=== PATIENT | female | born 1930 | race Caucasian/White ===

== ENCOUNTER 2017-11-18 11:31 | Inpatient (IN) | payer OTHER, MEDICARE ==
--- NOTE | 2017-11-18 11:38 | PDOC ---
History of Present Illness - General Chief Complaint: Wound Stated Complaint: WOUND Time Seen by Provider: 11/18/17 11:38 History Source: Patient, Family (Daughter) Exam Limitations: No Limitations - History of Present Illness Initial Comments: Pt, with PMH of DM, Afib, open heart bypass (1991), gastrectomy (2012), lung cancer treated with chemotherapy + pneumothorax (08/2017), and multiple falls leading to R hip/femur fracture and subdural hematoma, presents with R foot pain. An angiogram was conducted (09/2017) of the RLE which showed severely decreased arterial circulation in the RLE and multiple stents were placed. 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. The pt was then transferred to a nursing care center for rehabilitation. Over the last few days, her daughter states she noticed the pts R foot became more erythematous and she noticed the 5th digit becoming black. The pt has also been complaining of pain of the RLE from the foot to the knee. She denies any recent fevers/chills, nausea/vomiting, chest pain, SOB, abdominal pain, urinary symptoms, or diarrhea/constipation. 11/18/17 15:50 Past History - Travel Traveled outside of the country in the last 30 days: No Close contact w/someone who was outside of country & ill: No - Past Medical History Allergies/Adverse Reactions: Allergies Allergy/AdvReac Type Severity Reaction Status Date / Time tetracycline Allergy Verified 11/18/17 11:43 Home Medications: Ambulatory Orders Acetaminophen W/ Codeine #3 [Tylenol # 3 -] 1 tablet PO Q4HWA PRN 11/18/17 Ascorbate Calcium [Vitamin C] 500 mg PO DAILY 11/18/17 Calcium Carbonate/Vitamin D3 [Oyster Shell 500-Vit D3 200 Tb] 1 each PO DAILY Cholecalciferol (Vitamin D3) [Vitamin D3] 2,000 unit PO DAILY 11/18/17 Clopidogrel Bisulfate [Plavix] 75 mg PO DAILY 11/18/17 Famotidine [Pepcid] 20 mg PO DAILY 11/18/17 Ferrous Sulfate 325 mg PO DAILY 11/18/17 Gabapentin [Neurontin] 300 mg PO BID 11/18/17 Insulin (Levemir) [Levemir Vial] 3 unit SQ DAILY 11/18/17 Megestrol Acetate Oral Susp [Megace Liquid -] 400 mg PO BID 11/18/17 Metoprolol Succinate 25 mg PO DAILY 11/18/17 Multivitamin [Daily Multiple Vitamin] 1 each PO DAILY 11/18/17 Simvastatin [Zocor -] 20 mg PO HS 11/18/17 Sitagliptin Phosphate [Januvia] 100 mg PO DAILY 11/18/17 Warfarin Sodium [Coumadin] 1 mg PO HS 11/18/17 levETIRAcetam [Keppra -] 500 mg PO BID 11/18/17 Cancer: Yes (lung w/ pneumothorax) Cardiac Disorders: Yes Hx Myocardial Infarction: No CVA: Yes COPD: No CHF: No DVT: No Diabetes: No Dialysis: No HTN: Yes Other medical history: Multiple orthopedic injuries (hip/femur fx), subdural hematoma - Surgical History GI Surgery: Yes (gastrectomy) Review of Systems - Review of Systems Able to Perform ROS?: Yes Is the patient limited Turkmen proficient: No Constitutional: Yes: Unintentional Wgt. Loss (has lost weight in the halfway). No: Chills, Diaphoresis, Fever HEENTM: No: Recent change in vision, Nose Congestion, Throat Pain, Difficulty Swallowing Respiratory: No: Cough, Orthopnea, Shortness of Breath Cardiac (ROS): No: Chest Pain, Edema, Irregular Heart Rate, Lightheadedness, Palpitations, Syncope, Chest Tightness ABD/GI: No: Abdominal Distended, Constipated, Diarrhea, Nausea, Poor Appetite, Poor Fluid Intake, Vomiting : No: Burning, Dysuria, Frequency, Hematuria, Pain, Urgency Musculoskeletal: Yes: Joint Pain (R foot pain). No: Back Pain, Muscle Pain Integumentary: Yes: Change in Color (erythema of R foot and necrosis of 5th digit), Erythema. No: Bruising, Rash, Sweating Neurological: No: Headache, Numbness, Paresthesia, Tremors, Weakness, Ataxia Psychiatric: No: Sleep Pattern Change, Change in Appetite Endocrine: No: Increased Urine, Change in Weight Hematologic/Lymphatic: No: Anemia, Blood Clots, Easy Bleeding (Pt is on coumadin and plavix. Has not noticed increased bleeding) All Other Systems: Reviewed and Negative *Physical Exam - Physical Exam General Appearance: Yes: Appropriately Dressed, Cachetic. No: Apparent Distress (pt can lie comfortably in bed.) HEENT: positive: EOMI, Normal ENT Inspection, Normal Voice, Symmetrical, Pharynx Normal, Hearing Grossly Normal. negative: Scleral Icterus (R), Scleral Icterus (L) Neck: positive: Trachea midline, Normal Thyroid, Supple. negative: Tender, Rigid, Lymphadenopathy (R), Lymphadenopathy (L) Respiratory/Chest: positive: Lungs Clear, Normal Breath Sounds. negative: Chest Tender, Respiratory Distress, Accessory Muscle Use Cardiovascular: positive: Regular Rhythm, Regular Rate, S1, S2. negative: Edema , JVD, Murmur Vascular Pulses: Dorsalis-Pedis (R): 0, Doralis-Pedis (L): 1+ Gastrointestinal/Abdominal: positive: Normal Bowel Sounds, Flat, Soft. negative : Tender, Organomegaly, Pulsatile Mass, Distended, Guarding, Rebound Lymphatic: negative: Adenopathy, Tenderness Musculoskeletal: positive: Normal Inspection. negative: CVA Tenderness, Decreased Range of Motion Extremity: positive: Normal Capillary Refill, Normal Range of Motion, Tender ( Tender over R foot), Pelvis Stable, Coldness (warmth over R forefoot, R 5th toe necrotic and cold. No DP or posterior tibial palpated on R. Minimal drainage from wound. Amputated 3rd and 4th digits, R foot.), Erythema. negative: Normal Inspection, Cyanosis, Pedal Edema Integumentary: positive: Dry, Warm. negative: Normal Color (black necrosis 5th toe of R foot), Rash Neurologic: positive: lead database developer II-XII NML intact, Fully Oriented, Alert, Normal Mood/ Affect, Normal Response, Motor Strength 5/5 Heart Score/ECG Review - History History: Slightly suspicious - Electrocardiogram EKG: Normal - Age Age: >/= 65 - Risk Factors Risk Factors Heart Score: Yes Hx Hypercholesterolemia, Yes Hx Hypertension Based on the list above the patient has:: 1-2 risk factors - Troponin Troponin: </= normal limit - Score Heart Score - Total: 3 - ECG Intrepretation Rhythm: Regular Rhythm - [place]: Left [place] Deviation - P and ID Prominent R with upright T in V1 (true posterior SD): No Delta Wave(s) Present: No WPW: No - QRS Widened: RBBB (incomplete RBBB) - ST and T Early Repolarization: No Non Specific ST-T Wave changes: No Flattened T Waves: No Prolonged Q-T Interval: No - ECG Impressions Normal ECG: No Non-specific ST Elevation: No Ischemic Changes: No Bradycardia: No Torsades christian Pointes: No WPW: No ED Treatment Course - LABORATORY CBC & Chemistry Diagram: 11/18/17 12:35 11/18/17 12:35 - RADIOLOGY Radiology Studies Ordered: x-ray R foot Arterial doppler RLE 11/18/17 14:05 Radiograph Interpretation: EXAM#: TYPE/EXAM: RESULT: [id number] US/DUPLEX ART. LEGS- LIMITED US Recent amputation of right toes. Atrial fibrillation. Rule out emboli. Right lower extremity duplex arterial ultrasound. Examination is limited. No prior is available for comparison. There is normal triphasic waveform in the right common femoral artery. Biphasic waveform in the superficial femoral artery. A stent is present in the popliteal artery which is patent with biphasic waveform. Patent posterior tibial artery with a triphasic waveform There is an occluded graft seen running adjacent and parallel to the superficial femoral artery with its proximal and distal portions/insertion not identified on this exam IMPRESSION: Limited examination, as described above. Occluded graft running adjacent and parallel to the superficial femoral artery. Patent popliteal artery stent. Biphasic waveform in the superficial femoral and popliteal artery. Triphasic waveform in the common femoral and posterior tibial artery were identified. Correlate clinically to determine further evaluation. Case discussed with Dr. Rashad Monterroso, emergency room attending physician. 11/18/17 15:28 Medical Decision Making - Medical Decision Making (entered later) Pt seen at bedside, also seen by Dr. Monterroso. Pt febrile, with necrotic 5th digit of R foot, and erythema (likely cellulitis) around the R midfoot. No pulse was palpated in the R foot DP. Started sepsis work-up, administered 1 g Vanc, 3.375 g Zosyn. Ordered CBC, CMP, lactic and blood/urine cultures, CRP/ESR, troponin, Mg, Phos. Ordered X-ray of R foot and arterial doppler of RLE. Provided 1 g Ofirmev as needed. CBC: H/H: 10.2/31.2, WBC 5.3 Trop .03 Lactic 4[address] Allred's office was called for surgery and consult. He is currently in surgery but will come by later today to see the pt. Spoke with hospitalist who will admit to med/surg. Consult order placed for Dr. Allred. Hospitalist also asked for pt to be seen by vascular surgery to r/o any vascular intervention that needs to be done on emergent basis. Called Dr. Bassam Martinez (vascular) for call-back to discuss case. Awaiting call. 11/18/17 14:00 Pt currently in ultrasound (RLE arterial doppler) 11/18/17 14:24 Dr. Martinez coming to see the pt. 11/18/17 15:28 Dr. Martinez consulted and he has seen the patient. He will order CTA for RLE. 11/18/17 16:05 *DC/Admit/Observation/Transfer Diagnosis at time of Disposition: Amputated toe of right foot, Toe necrosis Cellulitis Qualifiers: Site of cellulitis: extremity Site of cellulitis of extremity: toe Laterality: right Qualified Code(s): L03.031 - Cellulitis of right toe - Discharge Dispostion Condition at time of disposition: Stable Decision to Admit order: Yes - Referrals - Patient Instructions - Post Discharge Activity
--- NOTE | 2017-11-18 11:49 | PDOC ---
Attending Attestation - Resident Resident Name: Sandi Dodd - ED Attending Attestation I have performed the following: I have examined & evaluated the patient, The case was reviewed & discussed with the resident, I agree w/resident's findings & plan, Exceptions are as noted - HPI HPI: 11/18/17 12:24 86 year old female with history of DM, afib, PAD s/p stents, CAD s/p CABG, lung cancer, gastrectomy p/w R foot infection/5th toe necrosis. The patient was recently operated ~3 weeks ago at [facility]. Had 3rd and 4th right toes amputation. Prior to discharge, had some mild "ecchymosis" and necrosis of right 5th toe. Decision was made to observe. States the physicians at [facility] noted that the patient has baseline poor ankle and foot pulses (states typically unable to feel it). Pt was then discharged to SNF. Daughter was visiting today, and noted that the 5th fifth toe was completely necrotic and developed erythema over the dorsum of the right foot. Unclear when the symptoms started. Pt's daughter (Melvina Andrade [phone] HCP) had called a surgeon Dr. Allred who agreed that patient should be sent to the ED. - Physicial Exam PE: 11/18/17 12:57 GENERAL: Awake, alert,, in no acute distress HEAD: No signs of trauma EYES: EOMI, sclera anicteric, conjunctiva clear ENT: Auricles normal inspection, hearing grossly normal, nares patent Moist mucosa NECK: Normal ROM, supple BACK: Stage 2 sacral ulcer. Appears noninfected. EXTREMITIES: Normal range of motion, no edema. No clubbing or cyanosis. No cords, erythema, or tenderness RLE: Difficult to palpate R posterior tibial/DP pulse. Dorsal erythema appreciated. S/p amputation 3rd and 4th toe. 5th toe with complete necrosis. Decreased sensation. NEUROLOGICAL: Cranial nerves II through XII grossly intact. SKIN: Warm, Dry, normal turgor, no rashes or lesions noted. - Medical Decision Making 11/18/17 12:59 Vital Signs Temp Pulse Resp BP Pulse Ox 99.7 F H 91 H 18 109/60 95 11/18/17 11:38 11/18/17 11:38 11/18/17 11:38 11/18/17 11:38 11/18/17 11:38 86 year old F p/w cellulitis and necrosis of the right fifth toe and foot. The wound is likely infected. R/o osteomyelitis. Labs including cultures, lactic acid, ESR, CRP. In addition, pt likely with severe PAD. Differential does include cold foot ( though likely chronic). Difficult to palpate distal pulses. Will need duplex arterial of lower extremities. Consider CTA of lower extremities. Consult Dr. Allred. IV antibiotics (vanc and zosyn) Admit 11/18/17 13:44 CBC, BMP 11/18/17 12:35 11/18/17 12:35 CMP Sodium 141 mmol/L (136-145) 11/18/17 12:35 Potassium 4.5 mmol/L (3.5-5.1) 11/18/17 12:35 Chloride 106 mmol/L (98-107) 11/18/17 12:35 Carbon Dioxide 28 mmol/L (21-32) 11/18/17 12:35 Anion Gap 7 (8-16) L 11/18/17 12:35 BUN 15 mg/dL (7-18) 11/18/17 12:35 Creatinine 0.5 mg/dL (0.55-1.02) L 11/18/17 12:35 Creat Clearance w eGFR > 60 (>60) 11/18/17 12:35 Random Glucose 143 mg/dL (74-106) H 11/18/17 12:35 Lactic Acid 4.1 mmol/L (0.0-2.0) H* 11/18/17 12:11 Calcium 8.3 mg/dL (8.5-10.1) L 11/18/17 12:35 Phosphorus 2.7 mg/dL (2.5-4.9) 11/18/17 12:35 Magnesium 2.0 mg/dL (1.8-2.4) 11/18/17 12:35 Total Bilirubin 0.3 mg/dL (0.2-1.0) 11/18/17 12:35 AST 49 U/L (15-37) H 11/18/17 12:35 ALT 44 U/L (12-78) 11/18/17 12:35 Alkaline Phosphatase 154 U/L (45-117) H 11/18/17 12:35 Troponin I 0.03 ng/ml (0.00-0.05) 11/18/17 12:35 C-Reactive Protein 8.2 MG/DL (0.00-0.3) H 11/18/17 12:35 Total Protein 6.1 g/dl (6.4-8.2) L 11/18/17 12:35 Albumin 2.3 g/dl (3.4-5.0) L 11/18/17 12:35 Elevated lactic acid. Case discussed with Dr. Allred. He will be the telecommunications consultant on the case. Admit. <Rashad Monterroso - Last Filed: 11/18/17 13:44> - Medical Decision Making 11/18/17 13:[address] Allred. 11/18/17 16:05 Dr. Martinez (Vascular) consulted here in the ED. Dr Martinez states he will order CTA. <Sekou Her - Last Filed: 11/18/17 16:07> Heart Score/ECG Review #1 ECG reviewed & interpreted by me at: 11:45 11/18/17 11:49 NSR 88, left axis deviation, incomplete RBBB, no std/[place], QTC 454 msec <Rashad Monterroso - Last Filed: 11/18/17 13:44> Attestations - Attestations 11/18/17 13:55 Documentation prepared by Sekou Her, acting as medical office specialist for Rashad Monterroso MD. <Sekou Her - Last Filed: 11/18/17 16:07>
[2017-11-18] MEDS ORDERED: HEMOQUE TEST 1 EACH EACH ONE (11:54)
[2017-11-18] MEDS ORDERED: SODIUM CHLORIDE 1,000 ML IV STA (12:11)
[2017-11-18] MEDS ORDERED: VANCOMYCIN 1,000 MG in DEXTROSE 5%-WATER - 250 ML IVPB ONE (12:17)
[2017-11-18] MEDS ORDERED: PIPERACILLIN/TAZOB 3.375 GM 3.375 GM in DEXTROSE 5%-WATER - 50 ML IVPB ONE (12:18)
[2017-11-18] MEDS ORDERED: PIPERACILLIN/TAZOB 3.375 GM 3.375 GM/50 ML BAG IVPB ONE (12:35)
[2017-11-18] MEDS ORDERED: VANCOMYCIN 1 GRAM (PRE-DOCKED) 1,000 MG/250 ML BAG IVPB ONE (12:35)
[2017-11-18 12:47] LABS: BASO % 0.8 % (0-2.0); EOS % 0.4 % (0-4.5); HEMATOCRIT 31.2 % (32.4-45.2); HEMOGLOBIN 10.2 GM/dL (10.7-15.3); LYMPH % 3.3 % (8-40); MCHC 32.7 g/dl (32.0-36.0); MEAN CELL VOLUME 91.6 fl (80-96); MEAN PLT VOLUME 8.2 fl (7.5-11.1); MONO % 5.6 % (3.8-10.2); NEUT % 89.9 % (42.8-82.8); PLATELET COUNT 673 K/MM3 (134-434); RBC 3.41 M/mm3 (3.60-5.2); RDW 16.7 % (11.6-15.6); WHITE BLOOD COUNT 5.3 K/mm3 (4.0-10.0)
[2017-11-18 12:53] LABS: VENOUS PC02 48.4 mmHg (38-52); VENOUS PH 7.39 (7.32-7.42); VENOUS PO2 18.5 mmHg (28-48)
[2017-11-18] MEDS ORDERED: ACETAMINOPHEN 1000 MG/100 ML VIAL (NON FORMULARY) IVPB ONE (13:05)
[2017-11-18 13:11] LABS: INR 3.15 (0.83-1.09); PROTHROMBIN TIME (PATIENT) 35.6 SEC (9.7-13.0)
[2017-11-18 13:14] LABS: URINE APPEARANCE CLEAR; URINE BILIRUBIN NEGATIVE (<2.0 mg/dL); URINE COLOR YELLOW; URINE GLUCOSE (UA) 2+ (NEGATIVE); URINE KETONE NEGATIVE (NEGATIVE); URINE LEUK ESTERASE NEGATIVE (NEGATIVE); URINE NITRITE NEGATIVE (NEGATIVE); URINE PROTEIN NEGATIVE (NEGATIVE); URINE UROBILINOGEN NEGATIVE mg/dL (0.2-1.0)
[2017-11-18 13:14] LABS: ACTIVATED PTT 39.5 SECONDS (25.2-36.5)
[2017-11-18] MEDS ORDERED: ACETAMINOPHEN INJECTION 100 ML IVPB ONE (13:17)
[2017-11-18 13:25] LABS: ALBUMIN 2.3 g/dl (3.4-5.0); ALK PHOS 154 U/L (45-117); ANION GAP 7 (8-16); BILIRUBIN,TOTAL 0.3 mg/dL (0.2-1.0); BLOOD UREA NITROGEN 15 mg/dL (7-18); CALCIUM 8.3 mg/dL (8.5-10.1); CHLORIDE 106 mmol/L (98-107); CO2 28 mmol/L (21-32); CREATININE 0.5 mg/dL (0.55-1.02); GLUCOSE,RANDOM 143 mg/dL (74-106); POTASSIUM 4.5 mmol/L (3.5-5.1); SGOT/AST 49 U/L (15-37); SGPT/ALT 44 U/L (12-78); SODIUM 141 mmol/L (136-145); TOT PROT 6.1 g/dl (6.4-8.2)
--- NOTE | 2017-11-18 16:50 | EKG ---
Test Reason : Blood Pressure : / mmHG Vent. Rate : 088 BPM Atrial Rate : 088 BPM P-R Int : 168 ms QRS Dur : 094 ms QT Int : 376 ms P-R-T Axes : 093 -57 084 degrees QTc Int : 454 ms NORMAL SINUS RHYTHM LEFT AXIS DEVIATION INCOMPLETE RIGHT BUNDLE BRANCH BLOCK ABNORMAL ECG NO PREVIOUS ECGS AVAILABLE Confirmed by MD BAILEY, SHAMAR ([id number]) on 11/18/2017 4:50:01 PM Referred By: Confirmed By:SHAMAR AVALOS MD
--- NOTE | 2017-11-18 17:04 | HP ---
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 Pt was at [facility] 3 weeks ago for right foot gangrene, was discharged to SNF for rehab. Since dc pt had been receiving rehab at the facility. for past two days daughter noted dark discoloration in the right toes which was not present at the time of dc from [facility]. daughter visits her mother daily, but previously the foot had always been wrapped until yesterday when the daughter saw the foot unwrapped for the first time. daughter had pictures in her phone of the foot prior to [facility] admission and at time of discharge, the initial lesion started as a dark lesion between 3rd and 4th digit that extended to tips of her toes, at time of discharge the 1st, 2nd and 5th toes were pink, insicion line was clean, intact with no erythema as seen in the picture taken of the plantar surface of the right foot. as per daughter pt had nonpalpable dp pulses when pt was dc'd from [facility] during pt's stay at [facility] she developed a sacral decub. As per daughter, pt had not complained about fevers, chest pain, sob, abdominal pain, dysuria, cough, diarrhea, constipation. ER course was notable for: (1) foot xray (2) lower extremity duplex (3) vascular surgery consult, podiatry consult Recent Travel: none PAST MEDICAL HISTORY: extensive, additional hx derived from chart review Diabetes, HTN, afib, HLD, dementia, hx of ME in 1991, chronic anemia hx of lung cancer dx'd June 2017, treated with radiationx4 at [facility] 3 weeks ago hx of gastric cancer, s/p gastrectomy 2012, s/p chemo and radiation hx of seizures hx of lung collapse 08/2017 hx of femur fracture s/p fall and hx of ICH s/p fall in 2015 PAD/PVD s/p recent R SFA/popliteal/AT/peroneal angioplasty (09/2017) PAST SURGICAL HISTORY: double bypass and 2 stents in right leg - 09/2017 aortic mechanical valve 1991 gastrectomy 2012 Social History: was living at home with Melvina(daughter), able to ambulate independently prior to [facility] admission Smoking: never Alcohol: never Drugs: never Family History: [place] Allergies tetracycline Allergy (Verified 11/18/17 11:43) iodinated contrast oral and IV HOME MEDICATIONS: Home Medications Medication Instructions Recorded Acetaminophen W/ Codeine #3 1 tablet PO Q4HWA PRN 11/18/17 [Tylenol # 3 -] Ascorbate Calcium [Vitamin C] 500 mg PO DAILY 11/18/17 Calcium Carbonate/Vitamin D3 1 each PO DAILY 11/18/17 [Oyster Shell 500-Vit D3 200 Tb] Cholecalciferol (Vitamin D3) 2,000 unit PO DAILY 11/18/17 [Vitamin D3] Clopidogrel Bisulfate [Plavix] 75 mg PO DAILY 11/18/17 Famotidine [Pepcid] 20 mg PO DAILY 11/18/17 Ferrous Sulfate 325 mg PO DAILY 11/18/17 Gabapentin [Neurontin] 300 mg PO BID 11/18/17 Insulin (Levemir) [Levemir Vial] 3 unit SQ DAILY 11/18/17 Megestrol Acetate Oral Susp 400 mg PO BID 11/18/17 [Megace Liquid -] Metoprolol Succinate 25 mg PO DAILY 11/18/17 Multivitamin [Daily Multiple 1 each PO DAILY 11/18/17 Vitamin] Simvastatin [Zocor -] 20 mg PO HS 11/18/17 Sitagliptin Phosphate [Januvia] 100 mg PO DAILY 11/18/17 Warfarin Sodium [Coumadin] 1 mg PO HS 11/18/17 levETIRAcetam [Keppra -] 500 mg PO BID 11/18/17 REVIEW OF SYSTEMS - obtained with help of daughter CONSTITUTIONAL: Present: weight change - unintentional weight loss Absent: fever, chills, diaphoresis, generalized weakness, malaise, loss of appetite, HEENT: Absent: difficulty swallowing, mouth swelling CARDIOVASCULAR: Present: Afib Absent: chest pain, peripheral edema RESPIRATORY: Absent: cough, GASTROINTESTINAL: Absent: abdominal pain, abdominal distension, vomiting, diarrhea, constipation GENITOURINARY: Absent: dysuria, MUSCULOSKELETAL: Present: foot pain SKIN: Absent: rash, itching, pallor PHYSICAL EXAMINATION Vital Signs - 24 hr 11/18/17 11:38 Temperature 99.7 F H Pulse Rate 91 H Respiratory 18 Rate Blood Pressure 109/60 O2 Sat by Pulse 95 Oximetry (%) GENERAL: Awake, alert, and oriented to person, age and birthday. did not want to answer remaining orientation questions, in no acute distress. HEAD: Normal with no signs of trauma. b/l temporal wasting. EYES: Pupils equal, round and reactive to light, extraocular movements intact, sclera anicteric, conjunctiva clear. No lid lag. EARS, NOSE, THROAT: Ears normal, nares patent, oropharynx clear without exudates. Moist mucous membranes. no thrush, no eduntulism, no oral lesions. NECK: Normal range of motion, supple without lymphadenopathy, JVD, or masses. LUNGS: Breath sounds equal, clear to auscultation bilaterally. No accessory muscle use. HEART: Regular rate and rhythm, normal S1 and S2 without murmur, audible click from valve. well healed sternal scar ABDOMEN: well-healed abdominal scar. Soft, nontender, not distended, normoactive bowel sounds, no guarding, no rebound, no masses. No hepatomegaly or splenomegaly. MUSCULOSKELETAL: wnl rom at shoulders, elbows, wrists. decr in b/l hips, knees and ankles. UPPER EXTREMITIES: 2+ radial pulses, warm, well-perfused. No cyanosis. No clubbing. No peripheral edema. LOWER EXTREMITIES: nonpalpable right DP/TP pulse, faint left dp pulse, nonpalable TP pulse in left. warm. right 1st, 2nd and fifth toes with ischemia, incision line closed, no crepitus, no discharge. erythema extending from toes to dorsum upto to ankle and mid planter surface. lateral metatarsal joint with circular area of ischemia 0.5cmx0.5cm. ttp at toes and at foot. b/l No calf tenderness. No peripheral edema. NEUROLOGICAL: Cranial nerves II-XII intact. Normal speech. facial symmetry. b/ l 3/5 hangrip, 4/5 triceps/biceps and shoulder flexion and extension. 1/5 hip extension b/l, 4/5 hip flexion b/l. 2/5 knee extension b/l, 4/5 knee flexion. SKIN: Warm, dry, normal turgor Laboratory Results - last 24 hr 11/18/17 11/18/17 11/18/17 12:11 12:27 12:35 WBC 5.3 RBC 3.41 L Hgb 10.2 L Hct 31.2 L MCV 91.6 MCH 30.0 MCHC 32.7 RDW 16.7 H Plt Count 673 H MPV 8.2 Absolute Neuts (auto) 4.8 Neutrophils % 89.9 H Lymphocytes % 3.3 L Monocytes % 5.6 Eosinophils % 0.4 Basophils % 0.8 Nucleated RBC % 0 ESR PT with INR INR PTT (Actin FS) VBG pH POC VBG pCO2 POC VBG pO2 Mixed VBG HCO3 Sodium Potassium Chloride Carbon Dioxide Anion Gap BUN Creatinine Creat Clearance w eGFR Random Glucose Lactic Acid 4.1 H* Calcium Phosphorus Magnesium Total Bilirubin AST ALT Alkaline Phosphatase Troponin I C-Reactive Protein Total Protein Albumin Urine Color Yellow Urine Appearance Clear Urine pH 5.0 Ur Specific [place] 1.019 Urine Protein Negative Urine Glucose (UA) 2+ H Urine Ketones Negative Urine Blood Negative Urine Nitrite Negative Urine Bilirubin Negative Urine Urobilinogen Negative Ur Leukocyte Esterase Negative Blood Type Antibody Screen 11/18/17 11/18/17 11/18/17 12:35 12:35 12:35 WBC RBC Hgb Hct MCV MCH MCHC RDW Plt Count MPV Absolute Neuts (auto) Neutrophils % Lymphocytes % Monocytes % Eosinophils % Basophils % Nucleated RBC % ESR PT with INR 35.60 H* INR 3.15 H* PTT (Actin FS) 39.5 VBG pH 7.39 POC VBG pCO2 48.4 POC VBG pO2 18.5 L* Mixed VBG HCO3 28.3 H Sodium 141 Potassium 4.5 Chloride 106 Carbon Dioxide 28 Anion Gap 7 L BUN 15 Creatinine 0.5 L Creat Clearance w eGFR > 60 Random Glucose 143 H Lactic Acid Calcium 8.3 L Phosphorus Magnesium Total Bilirubin 0.3 AST 49 H ALT 44 Alkaline Phosphatase 154 H Troponin I C-Reactive Protein Total Protein 6.1 L Albumin 2.3 L Urine Color Urine Appearance Urine pH Ur Specific [place] Urine Protein Urine Glucose (UA) Urine Ketones Urine Blood Urine Nitrite Urine Bilirubin Urine Urobilinogen Ur Leukocyte Esterase Blood Type Antibody Screen 11/18/17 11/18/17 11/18/17 12:35 12:35 12:35 WBC RBC Hgb Hct MCV MCH MCHC RDW Plt Count MPV Absolute Neuts (auto) Neutrophils % Lymphocytes % Monocytes % Eosinophils % Basophils % Nucleated RBC % ESR PT with INR INR PTT (Actin FS) VBG pH POC VBG pCO2 POC VBG pO2 Mixed VBG HCO3 Sodium Potassium Chloride Carbon Dioxide Anion Gap BUN Creatinine Creat Clearance w eGFR Random Glucose Lactic Acid Calcium Phosphorus Magnesium 2.0 Total Bilirubin AST ALT Alkaline Phosphatase Troponin I Cancelled 0.03 C-Reactive Protein Total Protein Albumin Urine Color Urine Appearance Urine pH Ur Specific [place] Urine Protein Urine Glucose (UA) Urine Ketones Urine Blood Urine Nitrite Urine Bilirubin Urine Urobilinogen Ur Leukocyte Esterase Blood Type B POSITIVE Antibody Screen Negative 11/18/17 11/18/17 11/18/17 12:35 12:35 12:35 WBC RBC Hgb Hct MCV MCH MCHC RDW Plt Count MPV Absolute Neuts (auto) Neutrophils % Lymphocytes % Monocytes % Eosinophils % Basophils % Nucleated RBC % ESR 104 H PT with INR INR PTT (Actin FS) VBG pH POC VBG pCO2 POC VBG pO2 Mixed VBG HCO3 Sodium Potassium Chloride Carbon Dioxide Anion Gap BUN Creatinine Creat Clearance w eGFR Random Glucose Lactic Acid Calcium Phosphorus 2.7 Magnesium Total Bilirubin AST ALT Alkaline Phosphatase Troponin I C-Reactive Protein 8.2 H Total Protein Albumin Urine Color Urine Appearance Urine pH Ur Specific [place] Urine Protein Urine Glucose (UA) Urine Ketones Urine Blood Urine Nitrite Urine Bilirubin Urine Urobilinogen Ur Leukocyte Esterase Blood Type Antibody Screen 11/18/17 12:40 WBC RBC Hgb Hct MCV MCH MCHC RDW Plt Count MPV Absolute Neuts (auto) Neutrophils % Lymphocytes % Monocytes % Eosinophils % Basophils % Nucleated RBC % ESR PT with INR INR PTT (Actin FS) VBG pH POC VBG pCO2 POC VBG pO2 Mixed VBG HCO3 Sodium Potassium Chloride Carbon Dioxide Anion Gap BUN Creatinine Creat Clearance w eGFR Random Glucose Lactic Acid Calcium Phosphorus Magnesium Total Bilirubin AST ALT Alkaline Phosphatase Troponin I C-Reactive Protein Total Protein Albumin Urine Color Urine Appearance Urine pH Ur Specific [place] Urine Protein Urine Glucose (UA) Urine Ketones Urine Blood Urine Nitrite Urine Bilirubin Urine Urobilinogen Ur Leukocyte Esterase Blood Type B POSITIVE Antibody Screen ASSESSMENT/PLAN: 86 yr old woman with extensive medical hx with multiple co-morbidities brought in from SNF for right toe gangrene admitted for further evaluation and management. - lactic acidosis resolved #right toe gangrene with cellulitis - podiatry(dr. castillo) and vasc(dr. call) for surgical intervention on 11/20 - further imaging with CT angio and MRI - wound care with santyl + dressing - IV zosyn 3.375 q8hr - started 11/18 - IV vanc 1gm given in the ED, likely continue the morning - ID consult - Dr. Pitt - if possible obtain culture report from previous amputation at [facility] - continuous bedrest rest, fall risk precautions, will initiate PT post- surgical pending surgical recommendations - tylenol for pain control, uptitrate if further pain control needed #DM - hold home januvia and levemir - NISS/BGM ACHS - NPO 11/20 00:00 prior to surgery - continue gabapentin 300mg po BID - A1c ordered #Afib/mechanical aortic valve - INR goal 2.5-3.5, currently therapeutic, hold coumadin(1 mg daily) for surgery - when INR <2.5, initiate heparin drip - repeat labs coags in the AM #PAD/PVD - plavix 75mg po daily, continue daily - pt had recent stents #HTN - metoprolol succ 25mg po daily #Seizures - keppra 500mg po bid daily #HLD - zocor 20mg po HS #s/p gastrectomy - pepcid 20mg po daily #Underweight, BMI 14 - megace 400mg po bid - continue supplements; ca, MVI, vitamins #chronic anemia - ferrous sulfate 325mg po daily DVT - on warfarin Diet - dysphagia ordered as per [facility] records that's what the pt was eating Code status - adult without capacity with surrogate(daughter Melvina) - confirmed DNR/DNI, paperwork placed in chart. palliative consulted given pt's extensive co-morbidities. Visit type - Emergency Visit Emergency Visit: Yes ED Registration Date: 11/18/17 Care time: The patient presented to the Emergency Department on the above date and was hospitalized for further evaluation of their emergent condition. - New Patient This patient is new to me today: Yes Date on this admission: 11/18/17 - Critical Care Critical Care patient: No Hospitalist Screening - Colonoscopy Questionnaire Colonoscopy Questionnaire: Colonoscopy Questionnaire - Patient: 50 - 75 years old and never had a screening colonoscopy: No History of colon or rectal polyps, or CA: No History of IBD, Crohn's disease or UC: No History of abdominal radiation therapy as a child: No - Relative: 1 with colon or rectal CA, or polyps at age 60 or younger: No Colon or rectal CA diagnosed at age 45 or younger: No Multiple relatives with colon or rectal CA: No - Outcome: Screening Result: Negative Screen
--- NOTE | 2017-11-18 17:31 | PN ---
Progress Note (short form) - Note Progress Note: Vascular Surgery Pt seen and examined. right foot gangrene. Recent angiogram, stent placement in right leg at [facility]. Amputatio of toes performed as well. Went to rehab and foot became more discolored. There is gangrene of the area the toes were amputated. Also there is are skin changes to the fifth toe and second toe. Will order CTA to look at runoff for intervention. Hold coumadin. IV heparin when INR below 2.5. Bassam Martinez DO
--- NOTE | 2017-11-18 17:51 | CONSULT ---
Consult - text type - Consultation Consultation Note: Patiet seen in bed with family present. Recently vascular intervention and amputation toes 3&4 right. Patient is alert but not well oriented. vss, tmax 98.4 +dry gangarene right forefoot toes 5&2 and mpj toes 3&4 are gangrenous, - drainage, -mal odor, +tender, +celultis to ankle, weak pulses b/l, wbc=5.3 Gangarene, Cellulitis PVD Read and appreciated vascular note. Anticipate intervention after vascular evaluation of current circulatory status. IVABX as per ID. MRI ordered. Xray reviewed. Santyl dressing change to right foot. will follow. Discussed with daughter and grandaughter.
[2017-11-18] MEDS ORDERED: WARFARIN NA 1 MG TABLET (FP) PO SCH (18:00)
[2017-11-18] MEDS ORDERED: PIPERACILLIN/TAZOBACTAM 3.375 GM VIAL IVPB ONE (18:40)
[2017-11-18] MEDS ORDERED: DEXTROSE 5%-WATER - 50 ML IVPB ONE (18:41)
[2017-11-18] MEDS: ACETAMINOPHEN 325 MG TABLET (FP) PO PRN (18:46)
[2017-11-18] MEDS: PIPERACILLIN/TAZOB 3.375 GM 3.375 GM in DEXTROSE 5%-WATER - 50 ML IVPB SCH (18:49)
[2017-11-18 19:17] VITALS: BMI 14.8
--- NOTE | 2017-11-18 19:19 | PN ---
Teaching Attending Note Name of Resident: Carolyn Pearson ATTENDING PHYSICIAN STATEMENT I saw and evaluated the patient. I reviewed the resident's note and discussed the case with the resident. I agree with the resident's findings and plan as documented with exceptions below. SUBJECTIVE: 86 yof with extensive PMHx, Mechanical AVR, IDDM, HTN, recent admission to [facility] s/p angiogram/stent placement, right 3rd/4th toe amputation, d/brisa to [place] 2 weeks ago, was brought in today with worsening foot discloration and gangrenous right 5th toe by daughter. Patient with limited ROS, given her dementia. C/o pain right foot. No fevers/chills, or other concerns as discussed with daughter. Has had poor oral intake since recent hospital course. OBJECTIVE: Vital Signs Period Temp Pulse Resp BP Sys/Yates Pulse Ox Last 24 Hr 98.1 F-99.7 F 84-91 18-100 101-125/54-69 95-100 Intake & Output 11/15/17 11/16/17 11/17/17 11/18/17 23:59 23:59 23:59 23:59 Intake Total 50 Balance 50 Weight 76 lb 3 oz GENERAL: Awake, alert, oriented to self, cachectic female, in no acute distress. HEAD: Normal with no signs of trauma. EYES: Pupils equal, round and reactive to light, extraocular movements intact, sclera anicteric, conjunctiva clear. No lid lag. EARS, NOSE, THROAT: Ears normal, nares patent, oropharynx clear without exudates. Moist mucous membranes. NECK: Soft, supple, no JVD LUNGS: decreased effort, no rales or wheezing, limited exam HEART: S1S2 regular, mechanical click over precordium ABDOMEN: Soft, nontender, not distended, normoactive bowel sounds, no guarding, no rebound, no masses. Extremities: RLE in dressing, right gangrenous 5th toe, ovelying erythema on the dorsum of the right foot, unable to palpate DP or PT pulses NEUROLOGICAL: facial symmetry, tongue midline, power generalized weakness 4/5, further exam limited due to lack of co-operation PSYCHIATRIC: Cooperative on persuasion SKIN: Warm, dry, normal turgor, Home Medications Medication Instructions Recorded Acetaminophen W/ Codeine #3 1 tablet PO Q4HWA PRN 11/18/17 [Tylenol # 3 -] Ascorbate Calcium [Vitamin C] 500 mg PO DAILY 11/18/17 Calcium Carbonate/Vitamin D3 1 each PO DAILY 11/18/17 [Oyster Shell 500-Vit D3 200 Tb] Cholecalciferol (Vitamin D3) 2,000 unit PO DAILY 11/18/17 [Vitamin D3] Clopidogrel Bisulfate [Plavix] 75 mg PO DAILY 11/18/17 Famotidine [Pepcid] 20 mg PO DAILY 11/18/17 Ferrous Sulfate 325 mg PO DAILY 11/18/17 Gabapentin [Neurontin] 300 mg PO BID 11/18/17 Insulin (Levemir) [Levemir Vial] 3 unit SQ DAILY 11/18/17 Megestrol Acetate Oral Susp 400 mg PO BID 11/18/17 [Megace Liquid -] Metoprolol Succinate 25 mg PO DAILY 11/18/17 Multivitamin [Daily Multiple 1 each PO DAILY 11/18/17 Vitamin] Simvastatin [Zocor -] 20 mg PO HS 11/18/17 Sitagliptin Phosphate [Januvia] 100 mg PO DAILY 11/18/17 Warfarin Sodium [Coumadin] 1 mg PO HS 11/18/17 levETIRAcetam [Keppra -] 500 mg PO BID 11/18/17 Active Medications Acetaminophen (Tylenol -) 650 mg PO Q4H PRN PRN Reason: PAIN LEVEL 6-10 Last Admin: 11/18/17 18:46 Dose: 650 mg Ascorbic Acid (Vitamin C -) 500 mg PO DAILY [facility] Atorvastatin Calcium (Lipitor -) 10 mg PO HS [facility] Calcium Carbonate/Cholecalciferol (Os-Matt 500+D -) 1 tab PO DAILY [facility] Cholecalciferol (Vitamin D3 -) 2,000 unit PO DAILY [facility] Clopidogrel Bisulfate (Plavix -) 75 mg PO DAILY [facility] Collagenase (Santyl -) 1 applic TP DAILY [facility]; Protocol Ferrous Sulfate (Feosol -) 325 mg PO DAILY [facility] Gabapentin (Neurontin -) 300 mg PO BID [facility] Piperacillin Sod/Tazobactam (Sod 3.375 gm/ Dextrose) 50 mls @ 100 mls/hr IVPB Q8H-IV GUA[place] Last Admin: 11/18/17 18:49 Dose: 100 mls/hr Insulin Aspart (Novolog Vial Sliding Scale -) 1 vial SQ ACHS [facility]; Protocol Levetiracetam (Keppra -) 500 mg PO BID [facility] Megestrol Acetate (Megace Oral Suspension -) 400 mg PO BID [facility] Metoprolol Succinate (Toprol Xl -) 25 mg PO DAILY [facility] Multivitamins/Minerals/Vitamin C (Tab-A-Vit -) 1 tab PO DAILY [facility] Ranitidine HCl (Zantac -) 150 mg PO DAILY [facility] Laboratory Results - last 24 hr 11/18/17 11/18/17 11/18/17 12:11 12:27 12:35 WBC 5.3 RBC 3.41 L Hgb 10.2 L Hct 31.2 L MCV 91.6 MCH 30.0 MCHC 32.7 RDW 16.7 H Plt Count 673 H MPV 8.2 Absolute Neuts (auto) 4.8 Neutrophils % 89.9 H Lymphocytes % 3.3 L Monocytes % 5.6 Eosinophils % 0.4 Basophils % 0.8 Nucleated RBC % 0 ESR PT with INR INR PTT (Actin FS) VBG pH POC VBG pCO2 POC VBG pO2 Mixed VBG HCO3 Sodium Potassium Chloride Carbon Dioxide Anion Gap BUN Creatinine Creat Clearance w eGFR Random Glucose Lactic Acid 4.1 H* Calcium Phosphorus Magnesium Total Bilirubin AST ALT Alkaline Phosphatase Troponin I C-Reactive Protein Total Protein Albumin Urine Color Yellow Urine Appearance Clear Urine pH 5.0 Ur Specific [place] 1.019 Urine Protein Negative Urine Glucose (UA) 2+ H Urine Ketones Negative Urine Blood Negative Urine Nitrite Negative Urine Bilirubin Negative Urine Urobilinogen Negative Ur Leukocyte Esterase Negative Blood Type Antibody Screen 11/18/17 11/18/17 11/18/17 12:35 12:35 12:35 WBC RBC Hgb Hct MCV MCH MCHC RDW Plt Count MPV Absolute Neuts (auto) Neutrophils % Lymphocytes % Monocytes % Eosinophils % Basophils % Nucleated RBC % ESR PT with INR 35.60 H* INR 3.15 H* PTT (Actin FS) 39.5 VBG pH 7.39 POC VBG pCO2 48.4 POC VBG pO2 18.5 L* Mixed VBG HCO3 28.3 H Sodium 141 Potassium 4.5 Chloride 106 Carbon Dioxide 28 Anion Gap 7 L BUN 15 Creatinine 0.5 L Creat Clearance w eGFR > 60 Random Glucose 143 H Lactic Acid Calcium 8.3 L Phosphorus Magnesium Total Bilirubin 0.3 AST 49 H ALT 44 Alkaline Phosphatase 154 H Troponin I C-Reactive Protein Total Protein 6.1 L Albumin 2.3 L Urine Color Urine Appearance Urine pH Ur Specific [place] Urine Protein Urine Glucose (UA) Urine Ketones Urine Blood Urine Nitrite Urine Bilirubin Urine Urobilinogen Ur Leukocyte Esterase Blood Type Antibody Screen 11/18/17 11/18/17 11/18/17 12:35 12:35 12:35 WBC RBC Hgb Hct MCV MCH MCHC RDW Plt Count MPV Absolute Neuts (auto) Neutrophils % Lymphocytes % Monocytes % Eosinophils % Basophils % Nucleated RBC % ESR PT with INR INR PTT (Actin FS) VBG pH POC VBG pCO2 POC VBG pO2 Mixed VBG HCO3 Sodium Potassium Chloride Carbon Dioxide Anion Gap BUN Creatinine Creat Clearance w eGFR Random Glucose Lactic Acid Calcium Phosphorus Magnesium 2.0 Total Bilirubin AST ALT Alkaline Phosphatase Troponin I Cancelled 0.03 C-Reactive Protein Total Protein Albumin Urine Color Urine Appearance Urine pH Ur Specific [place] Urine Protein Urine Glucose (UA) Urine Ketones Urine Blood Urine Nitrite Urine Bilirubin Urine Urobilinogen Ur Leukocyte Esterase Blood Type B POSITIVE Antibody Screen Negative 11/18/17 11/18/17 11/18/17 12:35 12:35 12:35 WBC RBC Hgb Hct MCV MCH MCHC RDW Plt Count MPV Absolute Neuts (auto) Neutrophils % Lymphocytes % Monocytes % Eosinophils % Basophils % Nucleated RBC % ESR 104 H PT with INR INR PTT (Actin FS) VBG pH POC VBG pCO2 POC VBG pO2 Mixed VBG HCO3 Sodium Potassium Chloride Carbon Dioxide Anion Gap BUN Creatinine Creat Clearance w eGFR Random Glucose Lactic Acid Calcium Phosphorus 2.7 Magnesium Total Bilirubin AST ALT Alkaline Phosphatase Troponin I C-Reactive Protein 8.2 H Total Protein Albumin Urine Color Urine Appearance Urine pH Ur Specific [place] Urine Protein Urine Glucose (UA) Urine Ketones Urine Blood Urine Nitrite Urine Bilirubin Urine Urobilinogen Ur Leukocyte Esterase Blood Type Antibody Screen 11/18/17 11/18/17 12:40 17:00 WBC RBC Hgb Hct MCV MCH MCHC RDW Plt Count MPV Absolute Neuts (auto) Neutrophils % Lymphocytes % Monocytes % Eosinophils % Basophils % Nucleated RBC % ESR PT with INR INR PTT (Actin FS) VBG pH POC VBG pCO2 POC VBG pO2 Mixed VBG HCO3 Sodium Potassium Chloride Carbon Dioxide Anion Gap BUN Creatinine Creat Clearance w eGFR Random Glucose Lactic Acid 1.2 Calcium Phosphorus Magnesium Total Bilirubin AST ALT Alkaline Phosphatase Troponin I C-Reactive Protein Total Protein Albumin Urine Color Urine Appearance Urine pH Ur Specific [place] Urine Protein Urine Glucose (UA) Urine Ketones Urine Blood Urine Nitrite Urine Bilirubin Urine Urobilinogen Ur Leukocyte Esterase Blood Type B POSITIVE Antibody Screen Arterial duplex results noted Right foot xray noted EKG NSR, incomplete RBBB ASSESSMENT AND PLAN: 86 yof with extensive PMHx, recent RLE angiogram/?graft/Stent placement/Right 3rd-4th toe amputation admitted with RIght 5th toe gangrene +/- overlying cellulitis/OM -Right 5th toe gangrene with overlying cellulits +/- Osteomytelitis -PVD s/p recent intervention with stent placements and ?graft -Mechanical AVR -Lactic acidosis,sepsis vs limb ischemia -IDDM -HTN Plan: Vascular/podiatry input noted. CTA runoff. Possible intervention 11/20 as discussed. Hold coumadin, heparin drip with INR < 2.5 Continue plavix as discussed with vascular. Podiatry input noted. MRI RLE, wound care ID consult. s/p zosyn/flagyl in ED. ISS, diabetic diet. Continue metoprolol/keppra/statin/megestrol DVTPPX as above Dispo pending above . Code status DNR/DNI - confirmed with daughter at bedside and advance directives from NH. PLan discussed with daughter in detail, all questions answered. Care co-ordinated with Dr. Allred, Dr. Pitt and Dr. Martinez. Total admit time 70 min.
[2017-11-18] MEDS: COLLAGENASE CLOSTRIDIUM HIST. 30 GRAMS TUBE TP SCH (20:55)
[2017-11-18] MEDS ORDERED: PT OWN MED DRAWER 7, Y5N ONE (21:06)
[2017-11-18] MEDS: GABAPENTIN 300 MG CAPSULE (FP) PO SCH (21:10)
[2017-11-18] MEDS: levETIRAcetam 500 MG TABLET (FP) PO SCH (21:10)
[2017-11-18] MEDS: ATORVASTATIN CA 10 MG TABLET (FP) PO SCH (21:10)
[2017-11-18] MEDS: INSULIN SLIDING SCALE (NOVOLOG) 1 VIAL SQ SCH (21:18)
[2017-11-18] MEDS: MEGESTROL ACETATE 400 MG/10 ML UNIT DOSE CUP PO SCH (22:19)
[2017-11-19] MEDS ORDERED: PIPERACILLIN/TAZOBACTAM 3.375 GM VIAL IVPB ONE ×2 (01:16→10:09)
[2017-11-19] MEDS ORDERED: DEXTROSE 5%-WATER - 50 ML IVPB ONE ×3 (01:16→16:57)
[2017-11-19] MEDS: PIPERACILLIN/TAZOB 3.375 GM 3.375 GM in DEXTROSE 5%-WATER - 50 ML IVPB SCH ×2 (02:02→10:13)
[2017-11-19] MEDS: INSULIN SLIDING SCALE (NOVOLOG) 1 VIAL SQ SCH ×4 (06:13→22:06)
[2017-11-19] MEDS: ACETAMINOPHEN 325 MG TABLET (FP) PO PRN ×3 (06:19→22:00)
[2017-11-19 08:09] LABS: BASO % 0.5 % (0-2.0); EOS % 0.3 % (0-4.5); HEMATOCRIT 28.9 % (32.4-45.2); HEMOGLOBIN 9.7 GM/dL (10.7-15.3); LYMPH % 3.2 % (8-40); MCH 31.2 pg (25.7-33.7); MCHC 33.8 g/dl (32.0-36.0); MEAN CELL VOLUME 92.3 fl (80-96); MEAN PLT VOLUME 8.3 fl (7.5-11.1); MONO % 6.7 % (3.8-10.2); NEUT % 89.3 % (42.8-82.8); PLATELET COUNT 648 K/MM3 (134-434); RBC 3.13 M/mm3 (3.60-5.2); RDW 16.5 % (11.6-15.6); WHITE BLOOD COUNT 6.2 K/mm3 (4.0-10.0)
--- NOTE | 2017-11-19 08:41 | SPA.PREOP ---
- PRE-OP NOTE Dx: PAD s/p Recent RLE angio, stent placement and digital toes amps 3&4 (at [facility]). Now 5th toe gangrene Planned Procedure: RLE angio. Gangrenous toes Surgeon: Bassam Martinez Consent: To be obtained by surgeon all risks, benefits and alternatives explained to patient and or health care proxy. Last Vital Signs Temp Pulse Resp BP Pulse Ox 98.2 F 103 H 18 126/79 99 11/19/17 06:00 11/19/17 06:00 11/19/17 06:00 11/19/17 06:00 11/18/17 22:00 Lab Results WBC 6.2 K/mm3 (4.0-10.0) 11/19/17 07:00 RBC 3.13 M/mm3 (3.60-5.2) L 11/19/17 07:00 Hgb 9.7 GM/dL (10.7-15.3) L 11/19/17 07:00 Hct 28.9 % (32.4-45.2) L 11/19/17 07:00 MCV 92.3 fl (80-96) 11/19/17 07:00 MCHC 33.8 g/dl (32.0-36.0) 11/19/17 07:00 RDW 16.5 % (11.6-15.6) H 11/19/17 07:00 Plt Count 648 K/MM3 (134-434) H 11/19/17 07:00 Sodium 141 mmol/L (136-145) 11/18/17 12:35 Potassium 4.5 mmol/L (3.5-5.1) 11/18/17 12:35 Chloride 106 mmol/L (98-107) 11/18/17 12:35 Carbon Dioxide 28 mmol/L (21-32) 11/18/17 12:35 Anion Gap 7 (8-16) L 11/18/17 12:35 BUN 15 mg/dL (7-18) 11/18/17 12:35 Creatinine 0.5 mg/dL (0.55-1.02) L 11/18/17 12:35 Random Glucose 143 mg/dL (74-106) H 11/18/17 12:35 Calcium 8.3 mg/dL (8.5-10.1) L 11/18/17 12:35 Blood Type B POSITIVE 11/18/17 12:40 Antibody Screen Negative 11/18/17 12:35 INR 3.15 (0.83-1.09) H* 11/18/17 12:35 Problem List - Problems (1) PAD (peripheral artery disease) Assessment/Plan: Unable to perform CTA w/ LE runoff as RN notes patient is allergic to iodine. Scheduled for RLE angio 11/20 at 1PM Patient will need to be premedicated (protocol/prednisone & benadryl) in preperation for use of contrast intra-op NPO after midnight GI PPX Medical optimization / clearance Will need Cardio Consult for clearance Hibiclens wash Plan discussed with Dr. Martinez and agrees. Code(s): I73.9 - PERIPHERAL VASCULAR DISEASE, UNSPECIFIED (2) Mechanical heart valve present Assessment/Plan: Afib(on warfarin) INR 3.15 --> f/u rpt INR If not decreased...will need INR reversal (Vit K & FFP) Start heparin when INR < 2.5 Code(s): Z95.2 - PRESENCE OF PROSTHETIC HEART VALVE Visit type - Case Type Case Type: ED Admission - Emergency Emergency Visit: Yes ED Registration Date: 11/18/17 Care time: The patient presented to the Emergency Department on the above date and was hospitalized for further evaluation of their emergent condition. - New patient This patient is new to me today: Yes Date on this admission: 11/19/17
[2017-11-19 08:59] LABS: ALBUMIN 2.3 g/dl (3.4-5.0); ALK PHOS 150 U/L (45-117); ANION GAP 9 (8-16); BILIRUBIN,TOTAL 0.4 mg/dL (0.2-1.0); BLOOD UREA NITROGEN 8 mg/dL (7-18); CALCIUM 8.4 mg/dL (8.5-10.1); CHLORIDE 113 mmol/L (98-107); CO2 26 mmol/L (21-32); CREATININE 0.5 mg/dL (0.55-1.02); GLUCOSE,RANDOM 87 mg/dL (74-106); MAGNESIUM 2.1 mg/dL (1.8-2.4); PHOSPHOROUS 3.3 mg/dL (2.5-4.9); POTASSIUM 4.6 mmol/L (3.5-5.1); SGOT/AST 35 U/L (15-37); SGPT/ALT 37 U/L (12-78); SODIUM 148 mmol/L (136-145); TOT PROT 5.9 g/dl (6.4-8.2)
[2017-11-19 09:08] LABS: INR 2.46 (0.83-1.09); PROTHROMBIN TIME (PATIENT) 27.8 SEC (9.7-13.0)
[2017-11-19 09:11] LABS: ACTIVATED PTT 35.2 SECONDS (25.2-36.5)
[2017-11-19] MEDS ORDERED: PT OWN MED DRAWER 7, Y5N ONE ×2 (10:09→21:52)
[2017-11-19] MEDS: CALCIUM 500MG/VIT-D 200 UNITS COMBO TABLET (FP) PO SCH (10:12)
[2017-11-19] MEDS: FERROUS SO4 325 MG TABLET (FP) PO SCH (10:12)
[2017-11-19] MEDS: MEGESTROL ACETATE 400 MG/10 ML UNIT DOSE CUP PO SCH ×2 (10:12→22:47)
[2017-11-19] MEDS: CHOLECALCIFEROL (VITAMIN D3) 1,000 UNIT TABLET (FP) PO SCH (10:12)
[2017-11-19] MEDS: levETIRAcetam 500 MG TABLET (FP) PO SCH ×2 (10:12→22:00)
[2017-11-19] MEDS: CLOPIDOGREL BISULFATE 75 MG TABLET (FP) PO SCH (10:12)
[2017-11-19] MEDS: metoPROLOL SUCCINATE 25 MG TAB.SR.24H (FP) PO SCH (10:12)
[2017-11-19] MEDS: ASCORBIC ACID 500 MG TABLET (FP) PO SCH (10:12)
[2017-11-19] MEDS: GABAPENTIN 300 MG CAPSULE (FP) PO SCH ×2 (10:12→22:00)
[2017-11-19] MEDS: MULTIVITAMINS (DAILY MVI) TABLET (FP) PO SCH (10:12)
[2017-11-19] MEDS: RANITIDINE HCL 150 MG TABLET (FP) PO SCH (10:12)
--- NOTE | 2017-11-19 11:39 | PN ---
Progress Note (short form) - Note Progress Note: ID Consult dictated Gangrene R foot R foot ischemia, possible cellulitis Low grade fever R/O sepsis Await c/s Empiric vancomycin/ zosyn Surgical follow up
[2017-11-19] MEDS: SODIUM CHLORIDE 0.45% 1,000 ML IV SCH (11:46)
[2017-11-19] MEDS ORDERED: HEPARIN NA (PORCINE) 5,000 UNITS/ML 1ML VIAL IVPUSH PRN ×2 (12:00)
--- NOTE | 2017-11-19 12:20 | PN ---
Progress Note (short form) - Note Progress Note: Patiet seen in bed this am. FUV right foot. Patient is sleepling at this time. +dry gangarene right forefoot toes 5&2 and mpj toes 3&4 are gangrenous, - drainage, -mal odor, +tender, +celultis to ankle, weak pulses b/l, wbc=6.2 Gangarene, Cellulitis PVD Anticipate intervention after vascular evaluation of current circulatory status. IVABX as per ID. MRI ordered. Santyl dressing change to right foot. will follow.
--- NOTE | 2017-11-19 12:41 | CONS ---
DATE OF CONSULTATION: DATE OF DICTATION: 11/19/2017 REASON FOR CONSULTATION: An 86-year-old female evaluated for cellulitis of the right foot. HISTORY: Patient was recently hospitalized at [facility] where she was found to have ischemia of the right lower extremity. She had undergone stent placement in the right lower extremity as well as amputation of the right 3rd and 4th toes. She was discharged to a rehabilitation facility. At the facility she developed increasing right foot pain and erythema. She was noted to have discoloration of the right 5th toe. She was evaluated in the emergency room, where she was found to have gangrene of the right 5th toe as well as discoloration of the right 2nd toe. She was empirically treated with vancomycin and Zosyn for possible cellulitis. At the present time she is awake and alert. She complains of pain; however, she is comfortable with analgesics. She denies any associated fever or chills. She was seen in consultation by vascular surgery and podiatry. PAST MEDICAL HISTORY: Positive for diabetes mellitus, atrial fibrillation, lung cancer, subdural hematoma. PAST SURGICAL HISTORY: Status post coronary artery bypass graft, aortic valve replacement 1991, gastrectomy, right hip fracture, right lower extremity arterial stent, amputation of the right 3rd and 4th toes. ALLERGIES: TETRACYCLINE. MEDICATIONS: Tylenol, vancomycin, Zosyn, Neurontin, Keppra, Megace, Toprol, Zantac, Lipitor, NovoLog, Plavix. SOCIAL HISTORY: The patient resides at home. She is a nonsmoker, nondrinker. REVIEW OF SYSTEMS: Neurologic: No loss of consciousness, seizure activity, focal weakness. Cardiac: Negative chest pain or palpitations. Positive aortic valve replacement. Respiratory: Positive for lung cancer. Gastrointestinal: Status post gastrectomy. Genitourinary: Negative for urinary tract infection. LABORATORY DATA: White count 6.2, hematocrit 28.9, platelet count 648. BUN 8, creatinine 0.5. Sedimentation rate 104, C-reactive protein 8.2. Cultures are pending. PHYSICAL EXAMINATION: General: The patient is elderly, cachectic, in no acute distress. Vital Signs: Temperature 97.9, T-max 99.7. Blood pressure 146/76, pulse 106, regular. Respirations 18 per minute. HEENT: Sclerae are anicteric. Cardiovascular: Heart sounds S1, S2. Positive mechanical valve murmur. Lungs: Clear. Abdomen: Soft and nontender. Extremities: Negative for edema. Examination of the right foot, there is dry gangrene present over the amputation site of the right 3rd and 4th toes as well as the right 5th toe. There is cyanosis present on the plantar aspect of the right 2nd toe. Hyperemia extends from the base of the toes to the dorsum of the foot towards the ankle. No purulent drainage is noted. IMPRESSION: 1. Gangrene of right foot. 2. Right foot ischemia, possible cellulitis. 3. Low-grade fever, rule out sepsis. Await culture results. Continue empiric antibiotic coverage with vancomycin and Zosyn. Surgical evaluation for right lower extremity angiogram, analgesics. Will follow. Thank you for the kind referral. NORA DOS SANTOS M.D. [id number]
[2017-11-19] MEDS: VANCOMYCIN 1,000 MG in DEXTROSE 5%-WATER - 250 ML IVPB SCH (14:06)
--- NOTE | 2017-11-19 14:09 | PN ---
Physical Exam: SUBJECTIVE: Patient seen and examined at bedside c/o of R leg pain from knee to foot. Per nurse Neurontin seemed to help. Denies any fever,CP, n/v/d, abd pain. OBJECTIVE: Vital Signs Period Temp Pulse Resp BP Sys/Yates Pulse Ox Last 24 Hr 97.6 F-98.8 F 83-106 18-100 101-172/54-97 99-100 GENERAL: Awake, alert, and Ox3. in mild distress. requesting to go home. cachectic and thin appearing HEAD: Normal with no signs of trauma. b/l temporal wasting. EYES: PERRL, extraocular movements intact, sclera anicteric, conjunctiva clear. No lid lag. EARS, NOSE, THROAT: nares patent, oropharynx clear without exudates. MMM. no thrush, no oral lesions. NECK: Normal range of motion, supple without lymphadenopathy, JVD, or masses. LUNGS: CTAB. No accessory muscle use. HEART: RRR, normal S1 and S2 without murmur, audible click from valve. well healed sternal scar ABDOMEN: well-healed abdominal scar. Soft, NTND +BS, no guarding, no rebound, no masses. No hepatomegaly or splenomegaly. MUSCULOSKELETAL: wnl rom at shoulders, elbows, wrists. decr in b/l hips, knees and ankles. UPPER EXTREMITIES: 2+ radial pulses, warm, well-perfused. No cyanosis. No clubbing. No peripheral edema. LOWER EXTREMITIES: RLE in dressing, right gangrenous 5th toe, overlying erythema on the dorsum of the right foot, unable to palpate R DP or PT pulses, faint left dp pulse. warm. right 1st, 2nd and fifth toes with ischemia, incision line closed, no crepitus, no discharge. erythema extending from toes to dorsum up to to ankle and mid planter surface. lateral metatarsal joint with circular area of ischemia 0.5cmx0.5cm. ttp at toes and at foot. b/l No calf tenderness. No peripheral edema. NEUROLOGICAL: Cranial nerves II-XII intact. Normal speech. facial symmetry. power generalized weakness 4/5 SKIN: Warm, dry, normal turgor Laboratory Results - last 24 hr 11/18/17 11/18/17 11/18/17 12:35 12:40 13:00 WBC RBC Hgb Hct MCV MCH MCHC RDW Plt Count MPV Absolute Neuts (auto) Neutrophils % Lymphocytes % Monocytes % Eosinophils % Basophils % Nucleated RBC % PT with INR INR PTT (Actin FS) Sodium Potassium Chloride Carbon Dioxide Anion Gap BUN Creatinine Creat Clearance w eGFR POC Glucometer Random Glucose Hemoglobin A1c % 7.5 H Lactic Acid Calcium Phosphorus Magnesium Total Bilirubin AST ALT Alkaline Phosphatase Total Protein Albumin Blood Type B POSITIVE B POSITIVE Antibody Screen Negative 11/18/17 11/18/17 11/19/17 17:00 21:14 06:12 WBC RBC Hgb Hct MCV MCH MCHC RDW Plt Count MPV Absolute Neuts (auto) Neutrophils % Lymphocytes % Monocytes % Eosinophils % Basophils % Nucleated RBC % PT with INR INR PTT (Actin FS) Sodium Potassium Chloride Carbon Dioxide Anion Gap BUN Creatinine Creat Clearance w eGFR POC Glucometer 162 76 Random Glucose Hemoglobin A1c % Lactic Acid 1.2 Calcium Phosphorus Magnesium Total Bilirubin AST ALT Alkaline Phosphatase Total Protein Albumin Blood Type Antibody Screen 11/19/17 11/19/17 11/19/17 07:00 07:00 07:00 WBC 6.2 RBC 3.13 L Hgb 9.7 L Hct 28.9 L MCV 92.3 MCH 31.2 MCHC 33.8 RDW 16.5 H Plt Count 648 H MPV 8.3 Absolute Neuts (auto) 5.5 Neutrophils % 89.3 H Lymphocytes % 3.2 L Monocytes % 6.7 Eosinophils % 0.3 Basophils % 0.5 Nucleated RBC % 0 PT with INR 27.80 H* INR 2.46 PTT (Actin FS) 35.2 Sodium 148 H Potassium 4.6 Chloride 113 H Carbon Dioxide 26 Anion Gap 9 BUN 8 Creatinine 0.5 L Creat Clearance w eGFR > 60 POC Glucometer Random Glucose 87 Hemoglobin A1c % Lactic Acid Calcium 8.4 L Phosphorus 3.3 Magnesium 2.1 Total Bilirubin 0.4 AST 35 ALT 37 Alkaline Phosphatase 150 H Total Protein 5.9 L Albumin 2.3 L Blood Type Antibody Screen 11/19/17 11:42 WBC RBC Hgb Hct MCV MCH MCHC RDW Plt Count MPV Absolute Neuts (auto) Neutrophils % Lymphocytes % Monocytes % Eosinophils % Basophils % Nucleated RBC % PT with INR INR PTT (Actin FS) Sodium Potassium Chloride Carbon Dioxide Anion Gap BUN Creatinine Creat Clearance w eGFR POC Glucometer 227 Random Glucose Hemoglobin A1c % Lactic Acid Calcium Phosphorus Magnesium Total Bilirubin AST ALT Alkaline Phosphatase Total Protein Albumin Blood Type Antibody Screen Active Medications Generic Name Dose Route Start Last Admin Trade Name Freq PRN Reason Stop Dose Admin Acetaminophen 650 mg 11/18/17 18:14 11/19/17 10:19 Tylenol - PO 650 mg Q4H PRN Administration PAIN LEVEL 6-10 Ascorbic Acid 500 mg 11/19/17 10:00 11/19/17 10:12 Vitamin C - PO 500 mg DAILY GUANAKO Administration Atorvastatin Calcium 10 mg 11/18/17 22:00 11/18/17 21:10 Lipitor - PO 10 mg HS GUANAKO Administration Calcium Carbonate/Cholecalciferol 1 tab 11/19/17 10:00 11/19/17 10:12 Os-Matt 500+D - PO 1 tab DAILY GUANAKO Administration Cholecalciferol 2,000 unit 11/19/17 10:00 11/19/17 10:12 Vitamin D3 - PO 2,000 unit DAILY GUANAKO Administration Clopidogrel Bisulfate 75 mg 11/19/17 10:00 11/19/17 10:12 Plavix - PO 75 mg DAILY GUANAKO Administration Collagenase 1 applic 11/18/17 18:00 11/18/17 20:55 Santyl - TP 1 applic DAILY GUANAKO Administration Protocol Diphenhydramine HCl 25 mg 11/20/17 12:00 Benadryl Injection - IVPUSH 11/20/17 12:01 ONCE ONE Ferrous Sulfate 325 mg 11/19/17 10:00 11/19/17 10:12 Feosol - PO 325 mg DAILY GUANAKO Administration Gabapentin 300 mg 11/18/17 22:00 11/19/17 10:12 Neurontin - PO 300 mg BID GUANAKO Administration Heparin Sodium (Porcine) 1,000 unit 11/19/17 12:00 Heparin - IVPUSH PRN PRN Heparin Heparin Sodium (Porcine) 5,000 unit 11/19/17 12:00 Heparin - IVPUSH PRN PRN Heparin Sodium Chloride 1,000 mls @ 75 mls/hr 11/19/17 09:15 11/19/17 11:46 1/2 Normal Saline IV 75 mls/hr ASDIR GUANAKO Administration Piperacillin Sod/Tazobactam 50 mls @ 100 mls/hr 11/19/17 18:00 Sod 2.25 gm/ Dextrose IVPB Q8H-IV GUANAKO Protocol Vancomycin HCl 1,000 mg/ 250 mls @ 200 mls/hr 11/19/17 13:00 Dextrose IVPB Q24H GUANAKO Protocol HEPARIN SOD,PORK IN 0.45% NACL 25,000 unit in 500 mls @ 16 mls/hr 11/19/17 13: 45 Heparin-1/2ns 25,000 Units/500 IVPB TITR GUANAKO Protocol 800 UNITS/HR Insulin Aspart 1 vial 11/18/17 22:00 11/19/17 11:43 Novolog Vial Sliding Scale - SQ 4 units ACHS GUANAKO Administration Protocol Levetiracetam 500 mg 11/18/17 22:00 11/19/17 10:12 Keppra - PO 500 mg BID GUANAKO Administration Megestrol Acetate 400 mg 11/18/17 22:00 11/19/17 10:12 Megace Oral Suspension - PO 400 mg BID GUANAKO Administration Methylprednisolone Sodium Succinate 125 mg 11/20/17 12:00 Solu-Medrol - IVPUSH 11/20/17 12:01 ONCE ONE Metoprolol Succinate 25 mg 11/19/17 10:00 11/19/17 10:12 Toprol Xl - PO 25 mg DAILY GUANAKO Administration Multivitamins/Minerals/Vitamin C 1 tab 11/19/17 10:00 11/19/17 10:12 Tab-A-Vit - PO 1 tab DAILY GUANAKO Administration Prednisone 60 mg 11/19/17 20:00 Deltasone - PO 11/19/17 20:01 ONCE ONE Ranitidine HCl 150 mg 11/19/17 10:00 11/19/17 10:12 Zantac - PO 150 mg DAILY GUANAKO Administration ASSESSMENT/PLAN: 86 yr old woman with PMH of DM, Afib, open heart bypass (1991), gastrectomy ( 2012), lung cancer treated with chemotherapy + pneumothorax (08/2017), and multiple falls leading to R hip/femur fracture and subdural hematoma, brought in from SNF for right toe gangrene admitted for further evaluation and management. #right toe gangrene with cellulitis - podiatry(dr. castillo) and vasc(dr. call) for surgical intervention on 11/20. Possible amputation post vascular intervention. -premedicated with prednisone 60 mg PO today and solumedrol/Benadryl tomorrow in preperation for use of contrast intra-op. possible allergy to Iodine few years back. Received cortisone prior to surgery at [facility] a month ago -NPO after midnight -GI PPX - zantac -IVF 1/2NS - INR 2.46, will hold coumadin and start hep gtt. -vitamin K 10 mg PO x 1 - CTA on hold. - wound care with santyl + dressing - c/w IV vanc 1gm /zosyn 3.375 q8hr started 11/18 - ID consult - Dr. Pitt - if possible obtain culture report from previous amputation at [facility] - continuous bedrest rest, fall risk precautions, will initiate PT post- surgical pending surgical recommendations - tylenol for pain control, uptitrate if further pain control needed #Severe Malnutrition - BMI 14. pt is cachetic w/ b/l temporal wasting on physical exam - megace 400mg po bid - continue supplements; ca, MVI, vitamins #DM - hold home januvia and levemir - NISS/BGM ACHS - NPO 11/20 00:00 prior to surgery - continue gabapentin 300mg po BID - A1c ordered #Afib/mechanical aortic valve - INR goal 2.5-3.5, currently therapeutic, hold coumadin(1 mg daily) for surgery - when INR <2.5, initiate heparin drip - repeat labs coags in the AM #PAD/PVD - plavix 75mg po daily, continue daily - pt had recent stents #HTN - metoprolol succ 25mg po daily #Seizures - keppra 500mg po bid daily #HLD - zocor 20mg po HS #s/p gastrectomy - pepcid 20mg po daily #chronic anemia - ferrous sulfate 325mg po daily #DVT - warfarin held for surgery sharifa. Hep gtt started #Diet - dysphagia ordered as per detention records that's what the pt was eating #Code status - adult without capacity with surrogate(daughter Melvina) - confirmed DNR/DNI, paperwork placed in chart. palliative consulted given pt's extensive co-morbidities. Visit type - Emergency Visit Emergency Visit: Yes ED Registration Date: 11/18/17 Care time: The patient presented to the Emergency Department on the above date and was hospitalized for further evaluation of their emergent condition. - New Patient This patient is new to me today: Yes Date on this admission: 11/19/17 - Critical Care Critical Care patient: No
[2017-11-19] MEDS ORDERED: PANTOPRAZOLE SODIUM 40 MG VIAL IVPUSH SCH (14:45)
[2017-11-19] MEDS: COLLAGENASE CLOSTRIDIUM HIST. 30 GRAMS TUBE TP SCH (15:34)
[2017-11-19] MEDS: HEPARIN SOD,PORK IN 0.45% NACL 25,000 UNIT/500 ML INFUS.BAG IVPB SCH (15:38)
[2017-11-19] MEDS ORDERED: PIPERACILLIN/TAZOBACTAM 2.25 GM VIAL IVPB ONE (16:56)
[2017-11-19] MEDS: PIPERACILLIN/TAZOB 2.25 GM 2.25 GM in DEXTROSE 5%-WATER - 50 ML IVPB SCH (17:19)
--- NOTE | 2017-11-19 17:53 | PN ---
Progress Note (short form) - Note Progress Note: VAscular Surgery Pt being premedicated for angiogram sharifa.. INR today is 2.4 Will need to be under 2 to do angio sharifa. Podiatry on the case. Bassam Martinez DO
[2017-11-19] MEDS ORDERED: PHYTONADIONE 5 MG TABLET PO ONE (18:00)
--- NOTE | 2017-11-19 18:02 | PN ---
Teaching Attending Note Name of Resident: Angelito Aguilar ATTENDING PHYSICIAN STATEMENT I saw and evaluated the patient. I reviewed the resident's note and discussed the case with the resident. I agree with the resident's findings and plan as documented with exceptions below. SUBJECTIVE: patient seen and examined. pain in right foot, further ROS limited but no complaints. states ''doesn't feel good" OBJECTIVE: Vital Signs Period Temp Pulse Resp BP Sys/Yates Pulse Ox Last 24 Hr 97.6 F-100.6 F 83-106 18-98 101-172/50-97 99-100 Intake & Output 11/16/17 11/17/17 11/18/17 11/19/17 23:59 23:59 23:59 23:59 Intake Total 50 300 Balance 50 300 Weight 76 lb 3 oz 76 lb General: sitting in bed in no acute distress Chest: CTAB, no rales or wheezing Abdomen:Soft, NT Extremities: right foot fifth toe gangrene, dressing, unchanged exam Home Medications Medication Instructions Recorded Acetaminophen W/ Codeine #3 1 tablet PO Q4HWA PRN 11/18/17 [Tylenol # 3 -] Ascorbate Calcium [Vitamin C] 500 mg PO DAILY 11/18/17 Calcium Carbonate/Vitamin D3 1 each PO DAILY 11/18/17 [Oyster Shell 500-Vit D3 200 Tb] Cholecalciferol (Vitamin D3) 2,000 unit PO DAILY 11/18/17 [Vitamin D3] Clopidogrel Bisulfate [Plavix] 75 mg PO DAILY 11/18/17 Famotidine [Pepcid] 20 mg PO DAILY 11/18/17 Ferrous Sulfate 325 mg PO DAILY 11/18/17 Gabapentin [Neurontin] 300 mg PO BID 11/18/17 Insulin (Levemir) [Levemir Vial] 3 unit SQ DAILY 11/18/17 Megestrol Acetate Oral Susp 400 mg PO BID 11/18/17 [Megace Liquid -] Metoprolol Succinate 25 mg PO DAILY 11/18/17 Multivitamin [Daily Multiple 1 each PO DAILY 11/18/17 Vitamin] Simvastatin [Zocor -] 20 mg PO HS 11/18/17 Sitagliptin Phosphate [Januvia] 100 mg PO DAILY 11/18/17 Warfarin Sodium [Coumadin] 1 mg PO HS 11/18/17 levETIRAcetam [Keppra -] 500 mg PO BID 11/18/17 Active Medications Acetaminophen (Tylenol -) 650 mg PO Q4H PRN PRN Reason: PAIN LEVEL 6-10 Last Admin: 11/19/17 10:19 Dose: 650 mg Ascorbic Acid (Vitamin C -) 500 mg PO DAILY [facility] [place] Last Admin: 11/19/17 10:12 Dose: 500 mg Atorvastatin Calcium (Lipitor -) 10 mg PO HS [facility] [place] Last Admin: 11/18/17 21:10 Dose: 10 mg Calcium Carbonate/Cholecalciferol (Os-Matt 500+D -) 1 tab PO DAILY [facility] [place] Last Admin: 11/19/17 10:12 Dose: 1 tab Cholecalciferol (Vitamin D3 -) 2,000 unit PO DAILY [facility] [place] Last Admin: 11/19/17 10:12 Dose: 2,000 unit Clopidogrel Bisulfate (Plavix -) 75 mg PO DAILY [facility] [place] Last Admin: 11/19/17 10:12 Dose: 75 mg Collagenase (Santyl -) 1 applic TP DAILY [facility]; Protocol Last Admin: 11/19/17 15:34 Dose: 1 applic Diphenhydramine HCl (Benadryl Injection -) 25 mg IVPUSH ONCE ONE Stop: 11/20/17 10:01 Ferrous Sulfate (Feosol -) 325 mg PO DAILY [facility] [place] Last Admin: 11/19/17 10:12 Dose: 325 mg Gabapentin (Neurontin -) 300 mg PO BID [facility] [place] Last Admin: 11/19/17 10:12 Dose: 300 mg Heparin Sodium (Porcine) (Heparin -) 1,000 unit IVPUSH PRN PRN PRN Reason: Heparin Heparin Sodium (Porcine) (Heparin -) 5,000 unit IVPUSH PRN PRN PRN Reason: Heparin Sodium Chloride (1/2 Normal Saline) 1,000 mls @ 75 mls/hr IV ASDIR [facility] Last Admin: 11/19/17 11:46 Dose: 75 mls/hr Piperacillin Sod/Tazobactam (Sod 2.25 gm/ Dextrose) 50 mls @ 100 mls/hr IVPB Q8H-IV [facility]; Protocol Last Admin: 11/19/17 17:19 Dose: 100 mls/hr Vancomycin HCl 1,000 mg/ (Dextrose) 250 mls @ 200 mls/hr IVPB Q24H [facility]; Protocol Last Admin: 11/19/17 14:06 Dose: 200 mls/hr HEPARIN SOD,PORK IN 0.45% NACL (Heparin-1/2ns 25,000 Units/500) 25,000 unit in 500 mls @ 16 mls/hr IVPB TITR [facility] [place]; Protocol Last Admin: 11/19/17 15:38 Dose: 800 units/hr, 16 mls/hr Insulin Aspart (Novolog Vial Sliding Scale -) 1 vial SQ ACHS [facility] [place]; Protocol Last Admin: 11/19/17 11:43 Dose: 4 units Levetiracetam (Keppra -) 500 mg PO BID [facility] [place] Last Admin: 11/19/17 10:12 Dose: 500 mg Megestrol Acetate (Megace Oral Suspension -) 400 mg PO BID [facility] [place] Last Admin: 11/19/17 10:12 Dose: 400 mg Methylprednisolone Sodium Succinate (Solu-Medrol -) 125 mg IVPUSH ONCE ONE Stop: 11/20/17 10:01 Metoprolol Succinate (Toprol Xl -) 25 mg PO DAILY [facility] [place] Last Admin: 11/19/17 10:12 Dose: 25 mg Multivitamins/Minerals/Vitamin C (Tab-A-Vit -) 1 tab PO DAILY [facility] [place] Last Admin: 11/19/17 10:12 Dose: 1 tab Phytonadione (Mephyton -) 10 mg PO ONCE ONE Stop: 11/19/17 18:01 Prednisone (Deltasone -) 60 mg PO ONCE ONE Stop: 11/19/17 20:01 Ranitidine HCl (Zantac -) 150 mg PO DAILY [facility] [place] Last Admin: 11/19/17 10:12 Dose: 150 mg Laboratory Results - last 24 hr 11/18/17 11/18/17 11/19/17 13:00 21:14 06:12 WBC RBC Hgb Hct MCV MCH MCHC RDW Plt Count MPV Absolute Neuts (auto) Neutrophils % Lymphocytes % Monocytes % Eosinophils % Basophils % Nucleated RBC % PT with INR INR PTT (Actin FS) Sodium Potassium Chloride Carbon Dioxide Anion Gap BUN Creatinine Creat Clearance w eGFR POC Glucometer 162 76 Random Glucose Hemoglobin A1c % 7.5 H Calcium Phosphorus Magnesium Total Bilirubin AST ALT Alkaline Phosphatase Total Protein Albumin 11/19/17 11/19/17 11/19/17 07:00 07:00 07:00 WBC 6.2 RBC 3.13 L Hgb 9.7 L Hct 28.9 L MCV 92.3 MCH 31.2 MCHC 33.8 RDW 16.5 H Plt Count 648 H MPV 8.3 Absolute Neuts (auto) 5.5 Neutrophils % 89.3 H Lymphocytes % 3.2 L Monocytes % 6.7 Eosinophils % 0.3 Basophils % 0.5 Nucleated RBC % 0 PT with INR 27.80 H* INR 2.46 PTT (Actin FS) 35.2 Sodium 148 H Potassium 4.6 Chloride 113 H Carbon Dioxide 26 Anion Gap 9 BUN 8 Creatinine 0.5 L Creat Clearance w eGFR > 60 POC Glucometer Random Glucose 87 Hemoglobin A1c % Calcium 8.4 L Phosphorus 3.3 Magnesium 2.1 Total Bilirubin 0.4 AST 35 ALT 37 Alkaline Phosphatase 150 H Total Protein 5.9 L Albumin 2.3 L 11/19/17 11/19/17 11/19/17 11:42 16:00 16:49 WBC RBC Hgb Hct MCV MCH MCHC RDW Plt Count MPV Absolute Neuts (auto) Neutrophils % Lymphocytes % Monocytes % Eosinophils % Basophils % Nucleated RBC % PT with INR INR PTT (Actin FS) 34.9 Sodium Potassium Chloride Carbon Dioxide Anion Gap BUN Creatinine Creat Clearance w eGFR POC Glucometer 227 346 Random Glucose Hemoglobin A1c % Calcium Phosphorus Magnesium Total Bilirubin AST ALT Alkaline Phosphatase Total Protein Albumin Microbiology 11/18/17 12:35 Blood - Peripheral Venous Blood Culture - Preliminary NO GROWTH OBTAINED AFTER 24 HOURS, INCUBATION TO CONTINUE FOR 4 DAYS. 11/18/17 12:35 Blood - Peripheral Venous Blood Culture - Preliminary NO GROWTH OBTAINED AFTER 24 HOURS, INCUBATION TO CONTINUE FOR 4 DAYS. 11/18/17 12:27 Urine - Urine - Catheterized Urine Culture - Final NO GROWTH OBTAINED ASSESSMENT AND PLAN: 86 yof with extensive PMHx, recent RLE angiogram/?graft/Stent placement/Right 3rd-4th toe amputation admitted with RIght 5th toe gangrene +/- overlying cellulitis/OM -Right 5th toe gangrene with overlying cellulits +/- Osteomytelitis -PVD s/p recent intervention with stent placements and ?graft -Mechanical AVR -Lactic acidosis,sepsis vs limb ischemia -IDDM -HTN Plan: As discussed with daughter, possible allergy to Iodine few years back. Receive cortisone prior to surgery at [facility] a month ago. CTA on hold. Plan for angiogram and surgical intervention tomorrow. Premedicate with prednisone 60 mg PO today and solumedrol/Benadryl tomorrow. INR noted, Discussed with Dr. Martinez, vitamin K 10 mg PO x 1, heparin drip. NPO after midnight. IVF. Podiatry/ID input noted. Zosyn/vancomycin, wound care. Possible amputation post vascular intervention. ISS, diabetic diet. Continue metoprolol/keppra/statin/megestrol DVTPPX as above Dispo pending above . Code status DNR/DNI - confirmed with daughter at bedside and advance directives from NH.
[2017-11-19] MEDS ORDERED: predniSONE 20 MG TABLET (UD) PO ONE (20:00)
--- NOTE | 2017-11-19 20:59 | PN ---
Physical Exam: SUBJECTIVE: Patient seen and examined OBJECTIVE: Vital Signs Period Temp Pulse Resp BP Sys/Yates Pulse Ox Last 24 Hr 97.6 F-100.6 F 86-106 18-18 103-146/50-79 99 GENERAL: The patient is awake, alert, and fully oriented, in no acute distress. HEAD: Normal with no signs of trauma. EYES: PERRL, extraocular movements intact, sclera anicteric, conjunctiva clear. No ptosis. ENT: Ears normal, nares patent, oropharynx clear without exudates, moist mucous membranes. NECK: Trachea midline, full range of motion, supple. LUNGS: Breath sounds equal, clear to auscultation bilaterally, no wheezes, no crackles, no accessory muscle use. HEART: Regular rate and rhythm, S1, S2 without murmur, rub or gallop. ABDOMEN: Soft, nontender, nondistended, normoactive bowel sounds, no guarding, no rebound, no hepatosplenomegaly, no masses. EXTREMITIES: 2+ pulses, warm, well-perfused, no edema. NEUROLOGICAL: Cranial nerves II through XII grossly intact. Normal speech, gait not observed. PSYCH: Normal mood, normal affect. SKIN: Warm, dry, normal turgor, no rashes or lesions noted Laboratory Results - last 24 hr 11/18/17 11/18/17 11/19/17 13:00 21:14 06:12 WBC RBC Hgb Hct MCV MCH MCHC RDW Plt Count MPV Absolute Neuts (auto) Neutrophils % Lymphocytes % Monocytes % Eosinophils % Basophils % Nucleated RBC % PT with INR INR PTT (Actin FS) Sodium Potassium Chloride Carbon Dioxide Anion Gap BUN Creatinine Creat Clearance w eGFR POC Glucometer 162 76 Random Glucose Hemoglobin A1c % 7.5 H Calcium Phosphorus Magnesium Total Bilirubin AST ALT Alkaline Phosphatase Total Protein Albumin 11/19/17 11/19/17 11/19/17 07:00 07:00 07:00 WBC 6.2 RBC 3.13 L Hgb 9.7 L Hct 28.9 L MCV 92.3 MCH 31.2 MCHC 33.8 RDW 16.5 H Plt Count 648 H MPV 8.3 Absolute Neuts (auto) 5.5 Neutrophils % 89.3 H Lymphocytes % 3.2 L Monocytes % 6.7 Eosinophils % 0.3 Basophils % 0.5 Nucleated RBC % 0 PT with INR 27.80 H* INR 2.46 PTT (Actin FS) 35.2 Sodium 148 H Potassium 4.6 Chloride 113 H Carbon Dioxide 26 Anion Gap 9 BUN 8 Creatinine 0.5 L Creat Clearance w eGFR > 60 POC Glucometer Random Glucose 87 Hemoglobin A1c % Calcium 8.4 L Phosphorus 3.3 Magnesium 2.1 Total Bilirubin 0.4 AST 35 ALT 37 Alkaline Phosphatase 150 H Total Protein 5.9 L Albumin 2.3 L 11/19/17 11/19/17 11/19/17 11:42 16:00 16:49 WBC RBC Hgb Hct MCV MCH MCHC RDW Plt Count MPV Absolute Neuts (auto) Neutrophils % Lymphocytes % Monocytes % Eosinophils % Basophils % Nucleated RBC % PT with INR INR PTT (Actin FS) 34.9 Sodium Potassium Chloride Carbon Dioxide Anion Gap BUN Creatinine Creat Clearance w eGFR POC Glucometer 227 346 Random Glucose Hemoglobin A1c % Calcium Phosphorus Magnesium Total Bilirubin AST ALT Alkaline Phosphatase Total Protein Albumin Active Medications Generic Name Dose Route Start Last Admin Trade Name Freq PRN Reason Stop Dose Admin Acetaminophen 650 mg 11/18/17 18:14 11/19/17 10:19 Tylenol - PO 650 mg Q4H PRN Administration PAIN LEVEL 6-10 Ascorbic Acid 500 mg 11/19/17 10:00 11/19/17 10:12 Vitamin C - PO 500 mg DAILY GUANAKO Administration Atorvastatin Calcium 10 mg 11/18/17 22:00 11/18/17 21:10 Lipitor - PO 10 mg HS GUANAKO Administration Calcium Carbonate/Cholecalciferol 1 tab 11/19/17 10:00 11/19/17 10:12 Os-Matt 500+D - PO 1 tab DAILY [facility]KO Administration Cholecalciferol 2,000 unit 11/19/17 10:00 11/19/17 10:12 Vitamin D3 - PO 2,000 unit DAILY [facility]KO Administration Clopidogrel Bisulfate 75 mg 11/19/17 10:00 11/19/17 10:12 Plavix - PO 75 mg DAILY G[facility]NAKO Administration Collagenase 1 applic 11/18/17 18:00 11/19/17 15:34 Santyl - TP 1 applic DAILY [facility]KO Administration Protocol Diphenhydramine HCl 25 mg 11/20/17 10:00 Benadryl Injection - IVPUSH 11/20/17 10:01 ONCE ONE Ferrous Sulfate 325 mg 11/19/17 10:00 11/19/17 10:12 Feosol - PO 325 mg DAILY [facility]KO Administration Gabapentin 300 mg 11/18/17 22:00 11/19/17 10:12 Neurontin - PO 300 mg BID G[facility]KO Administration Heparin Sodium (Porcine) 1,000 unit 11/19/17 12:00 Heparin - IVPUSH PRN PRN Heparin Heparin Sodium (Porcine) 5,000 unit 11/19/17 12:00 Heparin - IVPUSH PRN PRN Heparin Sodium Chloride 1,000 mls @ 75 mls/hr 11/19/17 09:15 11/19/17 11:46 1/2 Normal Saline IV 75 mls/hr ASDIR [facility]KO Administration Piperacillin Sod/Tazobactam 50 mls @ 100 mls/hr 11/19/17 18:00 11/19/17 17:19 Sod 2.25 gm/ Dextrose IVPB 100 mls/hr Q8H-IV [facility] Administration Protocol Vancomycin HCl 1,000 mg/ 250 mls @ 200 mls/hr 11/19/17 13:00 11/19/17 14:06 Dextrose IVPB 200 mls/hr Q24H GUANAKO Administration Protocol HEPARIN SOD,PORK IN 0.45% NACL 25,000 unit in 500 mls @ 16 mls/hr 11/19/17 13: 45 11/19/17 15:38 Heparin-1/2ns 25,000 Units/500 IVPB 800 units/hr TITR GUANAKO 16 mls/hr Administration Protocol 800 UNITS/HR Insulin Aspart 1 vial 11/18/17 22:00 11/19/17 20:20 Novolog Vial Sliding Scale - SQ Not Given ACHS GUANAKO Protocol Levetiracetam 500 mg 11/18/17 22:00 11/19/17 10:12 Keppra - PO 500 mg BID GUANAKO Administration Megestrol Acetate 400 mg 11/18/17 22:00 11/19/17 10:12 Megace Oral Suspension - PO 400 mg BID GUANAKO Administration Methylprednisolone Sodium Succinate 125 mg 11/20/17 10:00 Solu-Medrol - IVPUSH 11/20/17 10:01 ONCE ONE Metoprolol Succinate 25 mg 11/19/17 10:00 11/19/17 10:12 Toprol Xl - PO 25 mg DAILY GUANAKO Administration Multivitamins/Minerals/Vitamin C 1 tab 11/19/17 10:00 11/19/17 10:12 Tab-A-Vit - PO 1 tab DAILY G[facility]NAKO Administration Ranitidine HCl 150 mg 11/19/17 10:00 11/19/17 10:12 Zantac - PO 150 mg DAILY G[facility]NAKO Administration ASSESSMENT/PLAN:
[2017-11-19] MEDS ORDERED: CHLORHEXIDINE GLUCONATE 4% CLEANSER FOR DECOLONIZATION TP SCH (22:00)
[2017-11-19] MEDS: ATORVASTATIN CA 10 MG TABLET (FP) PO SCH (22:00)
[2017-11-20] MEDS ORDERED: PIPERACILLIN/TAZOBACTAM 2.25 GM VIAL IVPB ONE ×3 (01:12→17:45)
[2017-11-20] MEDS ORDERED: DEXTROSE 5%-WATER - 50 ML IVPB ONE ×3 (01:13→17:45)
[2017-11-20] MEDS: PIPERACILLIN/TAZOB 2.25 GM 2.25 GM in DEXTROSE 5%-WATER - 50 ML IVPB SCH ×4 (01:22→19:52)
[2017-11-20] MEDS: INSULIN SLIDING SCALE (NOVOLOG) 1 VIAL SQ SCH ×4 (06:57→21:33)
[2017-11-20 07:33] LABS: BASO % 0.1 % (0-2.0); HEMATOCRIT 28.5 % (32.4-45.2); HEMOGLOBIN 9.5 GM/dL (10.7-15.3); LYMPH % 1.7 % (8-40); MCH 30.6 pg (25.7-33.7); MCHC 33.3 g/dl (32.0-36.0); MEAN CELL VOLUME 92.1 fl (80-96); MEAN PLT VOLUME 8.2 fl (7.5-11.1); MONO % 1.2 % (3.8-10.2); PLATELET COUNT 648 K/MM3 (134-434); RBC 3.09 M/mm3 (3.60-5.2); RDW 16.5 % (11.6-15.6); WHITE BLOOD COUNT 9.4 K/mm3 (4.0-10.0)
--- NOTE | 2017-11-20 08:01 | PN ---
Physical Exam: SUBJECTIVE: Patient seen and examined at bedside c/o of R leg pain from knee to foot. NPO overnight w/ prednisone 60. Denies any fever,CP, n/v/d, abd pain. INR was elevated at 2.42 so vasc intervention was rescheduled for tomorrow OBJECTIVE: Vital Signs Period Temp Pulse Resp BP Sys/Yates Pulse Ox Last 24 Hr 97.9 F-100.6 F 86-106 18-18 103-146/50-76 99 GENERAL: AOx3. NAD. cachectic and thin appearing, eating breakfast. good mood HEENT: NAD. b/l temporal wasting. PERRL, sclera anicteric, conjunctiva clear. MMM. LUNGS: CTAB. No accessory muscle use. HEART: RRR, normal S1 and S2 without murmur, audible click from valve. well healed sternal scar ABDOMEN: well-healed abdominal scar. Soft, NTND +BS, no guarding, no rebound, no masses. MUSCULOSKELETAL: wnl rom at shoulders, elbows, wrists. decr in b/l hips, knees and ankles. UPPER EXTREMITIES: 2+ radial pulses, warm, well-perfused. No cyanosis. No clubbing. No peripheral edema. LOWER EXTREMITIES: RLE in dressing, right gangrenous 5th toe, overlying erythema on the dorsum of the right foot, unable to palpate R DP or PT pulses, faint left dp pulse. warm. ttp at R toes and at foot. NEUROLOGICAL: Cranial nerves II-XII intact. Normal speech. facial symmetry. power generalized weakness 4/5 SKIN: Warm, dry, normal turgor Laboratory Results - last 24 hr 11/18/17 11/19/17 11/19/17 13:00 07:00 07:00 WBC 6.2 RBC 3.13 L Hgb 9.7 L Hct 28.9 L MCV 92.3 MCH 31.2 MCHC 33.8 RDW 16.5 H Plt Count 648 H MPV 8.3 Absolute Neuts (auto) 5.5 Neutrophils % 89.3 H Lymphocytes % 3.2 L Monocytes % 6.7 Eosinophils % 0.3 Basophils % 0.5 Nucleated RBC % 0 PT with INR 27.80 H* INR 2.46 PTT (Actin FS) 35.2 Sodium Potassium Chloride Carbon Dioxide Anion Gap BUN Creatinine Creat Clearance w eGFR POC Glucometer Random Glucose Hemoglobin A1c % 7.5 H Calcium Phosphorus Magnesium Total Bilirubin AST ALT Alkaline Phosphatase Total Protein Albumin 11/19/17 11/19/17 11/19/17 07:00 11:42 16:00 WBC RBC Hgb Hct MCV MCH MCHC RDW Plt Count MPV Absolute Neuts (auto) Neutrophils % Lymphocytes % Monocytes % Eosinophils % Basophils % Nucleated RBC % PT with INR INR PTT (Actin FS) 34.9 Sodium 148 H Potassium 4.6 Chloride 113 H Carbon Dioxide 26 Anion Gap 9 BUN 8 Creatinine 0.5 L Creat Clearance w eGFR > 60 POC Glucometer 227 Random Glucose 87 Hemoglobin A1c % Calcium 8.4 L Phosphorus 3.3 Magnesium 2.1 Total Bilirubin 0.4 AST 35 ALT 37 Alkaline Phosphatase 150 H Total Protein 5.9 L Albumin 2.3 L 11/19/17 11/19/17 11/19/17 16:49 22:00 22:06 WBC RBC Hgb Hct MCV MCH MCHC RDW Plt Count MPV Absolute Neuts (auto) Neutrophils % Lymphocytes % Monocytes % Eosinophils % Basophils % Nucleated RBC % PT with INR INR PTT (Actin FS) 123.6 H Sodium Potassium Chloride Carbon Dioxide Anion Gap BUN Creatinine Creat Clearance w eGFR POC Glucometer 346 104 Random Glucose Hemoglobin A1c % Calcium Phosphorus Magnesium Total Bilirubin AST ALT Alkaline Phosphatase Total Protein Albumin 11/20/17 11/20/17 11/20/17 04:40 06:51 07:00 WBC 9.4 RBC 3.09 L Hgb 9.5 L Hct 28.5 L MCV 92.1 MCH 30.6 MCHC 33.3 RDW 16.5 H Plt Count 648 H MPV 8.2 Absolute Neuts (auto) 9.1 Neutrophils % 97.0 H Lymphocytes % 1.7 L D Monocytes % 1.2 L D Eosinophils % 0.0 D Basophils % 0.1 Nucleated RBC % 0 PT with INR INR PTT (Actin FS) 192.8 H Sodium Potassium Chloride Carbon Dioxide Anion Gap BUN Creatinine Creat Clearance w eGFR POC Glucometer 131 Random Glucose Hemoglobin A1c % Calcium Phosphorus Magnesium Total Bilirubin AST ALT Alkaline Phosphatase Total Protein Albumin Active Medications Generic Name Dose Route Start Last Admin Trade Name Freq PRN Reason Stop Dose Admin Acetaminophen 650 mg 11/18/17 18:14 11/19/17 22:00 Tylenol - PO 650 mg Q4H PRN Administration PAIN LEVEL 6-10 Ascorbic Acid 500 mg 11/19/17 10:00 11/19/17 10:12 Vitamin C - PO 500 mg DAILY GUANAKO Administration Atorvastatin Calcium 10 mg 11/18/17 22:00 11/19/17 22:00 Lipitor - PO 10 mg HS GUANAKO Administration Calcium Carbonate/Cholecalciferol 1 tab 11/19/17 10:00 11/19/17 10:12 Os-Matt 500+D - PO 1 tab DAILY GUANAKO Administration Cholecalciferol 2,000 unit 11/19/17 10:00 11/19/17 10:12 Vitamin D3 - PO 2,000 unit DAILY GUANAKO Administration Clopidogrel Bisulfate 75 mg 11/19/17 10:00 11/19/17 10:12 Plavix - PO 75 mg DAILY GUANAKO Administration Collagenase 1 applic 11/18/17 18:00 11/19/17 15:34 Santyl - TP 1 applic DAILY GUANAKO Administration Protocol Diphenhydramine HCl 25 mg 11/20/17 10:00 Benadryl Injection - IVPUSH 11/20/17 10:01 ONCE ONE Ferrous Sulfate 325 mg 11/19/17 10:00 11/19/17 10:12 Feosol - PO 325 mg DAILY GUANAKO Administration Gabapentin 300 mg 11/18/17 22:00 11/19/17 22:00 Neurontin - PO 300 mg BID GUANAKO Administration Heparin Sodium (Porcine) 1,000 unit 11/19/17 12:00 Heparin - IVPUSH PRN PRN Heparin Heparin Sodium (Porcine) 5,000 unit 11/19/17 12:00 Heparin - IVPUSH PRN PRN Heparin Sodium Chloride 1,000 mls @ 75 mls/hr 11/19/17 09:15 11/19/17 11:46 1/2 Normal Saline IV 75 mls/hr ASDIR GUANAKO Administration Piperacillin Sod/Tazobactam 50 mls @ 100 mls/hr 11/19/17 18:00 11/20/17 01:22 Sod 2.25 gm/ Dextrose IVPB 100 mls/hr Q8H-IV GUANAKO Administration Protocol Vancomycin HCl 1,000 mg/ 250 mls @ 200 mls/hr 11/19/17 13:00 11/19/17 14:06 Dextrose IVPB 200 mls/hr Q24H GUANAKO Administration Protocol HEPARIN SOD,PORK IN 0.45% NACL 25,000 unit in 500 mls @ 16 mls/hr 11/19/17 13: 45 11/20/17 06:37 Heparin-1/2ns 25,000 Units/500 IVPB 350 units/hr TITR GUANAKO 7 mls/hr Titration Protocol 800 UNITS/HR Insulin Aspart 1 vial 11/18/17 22:00 11/20/17 06:57 Novolog Vial Sliding Scale - SQ Not Given ACHS GUANAKO Protocol Levetiracetam 500 mg 11/18/17 22:00 11/19/17 22:00 Keppra - PO 500 mg BID GUANAKO Administration Megestrol Acetate 400 mg 11/18/17 22:00 11/19/17 22:47 Megace Oral Suspension - PO 400 mg BID GUANAKO Administration Methylprednisolone Sodium Succinate 125 mg 11/20/17 10:00 Solu-Medrol - IVPUSH 11/20/17 10:01 ONCE ONE Metoprolol Succinate 25 mg 11/19/17 10:00 11/19/17 10:12 Toprol Xl - PO 25 mg DAILY GUANAKO Administration Multivitamins/Minerals/Vitamin C 1 tab 11/19/17 10:00 11/19/17 10:12 Tab-A-Vit - PO 1 tab DAILY GUANAKO Administration Ranitidine HCl 150 mg 11/19/17 10:00 11/19/17 10:12 Zantac - PO 150 mg DAILY GUANAKO Administration ASSESSMENT/PLAN: 86 yr old woman with PMH of DM, Afib, open heart bypass (1991), gastrectomy ( 2012), lung cancer treated with chemotherapy + pneumothorax (08/2017), and multiple falls leading to R hip/femur fracture and subdural hematoma, brought in from [facility] for right toe gangrene admitted for further evaluation and management. #right toe gangrene with cellulitis - INR was elevated at 2.42 so vasc intervention was rescheduled for tomorrow if INR < 1.5. -Given today 2U FFP and 10mg vit K for INR reversal in anticipation for surgery sharifa and achieving INR < 1.5 -f/u INR 4pm -podiatry(dr. castillo) and vasc(dr. call) for surgical intervention on 11/21. Possible amputation post vascular intervention. -premedicated with prednisone 60 mg PO tonight and solumedrol/Benadryl tomorrow in preperation for use of contrast intra-op. possible allergy to Iodine few years back. Received cortisone prior to surgery at [facility] a month ago -NPO after midnight -GI PPX - zantac -IVF 1/2NS - INR 2.42, will hold coumadin and start hep gtt. -vitamin K 10 mg PO x 1 - CTA on hold. - wound care with santyl + dressing - c/w IV vanc 1gm /zosyn 3.375 q8hr started 11/18 -vanc trough for 11/22 at 12pm before 4th vanc dose - ID consult - Dr. Pitt - if possible obtain culture report from previous amputation at [facility] - continuous bedrest rest, fall risk precautions, will initiate PT post- surgical pending surgical recommendations - tylenol for pain control, uptitrate if further pain control needed #Severe Malnutrition - BMI 14. pt is cachetic w/ b/l temporal wasting on physical exam. pt eating breakfast today - megace 400mg po bid - continue supplements; ca, MVI, vitamins #Decubitis sacral ulcer -wound care -oob w/ assist as tolerated and change position in bed #DM - hold home januvia and levemir - NISS/BGM ACHS - NPO 11/21 00:00 prior to surgery - continue gabapentin 300mg po BID - A1c ordered #Afib/mechanical aortic valve - INR goal 2.5-3.5, currently therapeutic, hold coumadin(1 mg daily) for surgery - when INR <2.5, initiate heparin drip - repeat labs coags in the AM #PAD/PVD - plavix 75mg po daily, continue daily - pt had recent stents #HTN - metoprolol succ 25mg po daily #Seizures - keppra 500mg po bid daily #HLD - zocor 20mg po HS #s/p gastrectomy - pepcid 20mg po daily #chronic anemia - ferrous sulfate 325mg po daily #DVT - warfarin held for surgery sharifa. Hep gtt started #FEN - 1/2 NS -dysphagia ordered as per retirement records that's what the pt was eating -replete phosph #Code status - adult without capacity with surrogate(daughter Melvina) - confirmed DNR/DNI, paperwork placed in chart. palliative consulted given pt's extensive co-morbidities. Visit type - Emergency Visit Emergency Visit: Yes ED Registration Date: 11/18/17 Care time: The patient presented to the Emergency Department on the above date and was hospitalized for further evaluation of their emergent condition. - New Patient This patient is new to me today: Yes Date on this admission: 11/20/17 - Critical Care Critical Care patient: No
[2017-11-20 08:04] LABS: INR 2.42 (0.83-1.09); PROTHROMBIN TIME (PATIENT) 27.3 SEC (9.7-13.0)
[2017-11-20 08:09] LABS: CHLORIDE 107 mmol/L (98-107); SODIUM 141 mmol/L (136-145)
[2017-11-20 08:17] LABS: ALBUMIN 2.2 g/dl (3.4-5.0); ALK PHOS 134 U/L (45-117); ANION GAP 11 (8-16); BILIRUBIN,TOTAL 0.3 mg/dL (0.2-1.0); BLOOD UREA NITROGEN 8 mg/dL (7-18); CO2 23 mmol/L (21-32); CREATININE 0.6 mg/dL (0.55-1.02); GLUCOSE,RANDOM 132 mg/dL (74-106); MAGNESIUM 1.9 mg/dL (1.8-2.4); PHOSPHOROUS 2.4 mg/dL (2.5-4.9); SGOT/AST 32 U/L (15-37); SGPT/ALT 32 U/L (12-78); TOT PROT 5.9 g/dl (6.4-8.2)
[2017-11-20] MEDS ORDERED: PT OWN MED DRAWER 7, Y5N ONE ×2 (09:41→20:00)
[2017-11-20] MEDS ORDERED: methylPREDNISolone NA SUCC 125 MG/2 ML VIAL IVPUSH ONE ×2 (10:00→14:45)
[2017-11-20] MEDS ORDERED: PHYTONADIONE 5 MG TABLET PO ONE (10:15)
[2017-11-20] MEDS: FERROUS SO4 325 MG TABLET (FP) PO SCH (10:22)
[2017-11-20] MEDS: RANITIDINE HCL 150 MG TABLET (FP) PO SCH (10:22)
[2017-11-20] MEDS: levETIRAcetam 500 MG TABLET (FP) PO SCH ×2 (10:22→21:32)
[2017-11-20] MEDS: MULTIVITAMINS (DAILY MVI) TABLET (FP) PO SCH (10:22)
[2017-11-20] MEDS: CLOPIDOGREL BISULFATE 75 MG TABLET (FP) PO SCH (10:22)
[2017-11-20] MEDS: MEGESTROL ACETATE 400 MG/10 ML UNIT DOSE CUP PO SCH ×2 (10:23→23:08)
[2017-11-20] MEDS: CALCIUM 500MG/VIT-D 200 UNITS COMBO TABLET (FP) PO SCH (10:23)
[2017-11-20] MEDS: ASCORBIC ACID 500 MG TABLET (FP) PO SCH (10:23)
[2017-11-20] MEDS: GABAPENTIN 300 MG CAPSULE (FP) PO SCH ×2 (10:23→21:32)
[2017-11-20] MEDS: ACETAMINOPHEN 325 MG TABLET (FP) PO PRN ×2 (10:23→21:35)
[2017-11-20] MEDS: metoPROLOL SUCCINATE 25 MG TAB.SR.24H (FP) PO SCH (10:23)
[2017-11-20] MEDS: CHOLECALCIFEROL (VITAMIN D3) 1,000 UNIT TABLET (FP) PO SCH (10:23)
[2017-11-20] MEDS: SODIUM CHLORIDE 0.45% 1,000 ML IV SCH (10:25)
[2017-11-20] MEDS ORDERED: INSULIN (LEVEMIR) 100 UNITS/ML UNITS SQ ONE (10:52)
[2017-11-20] MEDS ORDERED: SODIUM PHOSPHATE - 15 MM in SODIUM CHLORIDE 250 ML IVPB ONE (11:30)
[2017-11-20] MEDS: COLLAGENASE CLOSTRIDIUM HIST. 30 GRAMS TUBE TP SCH (12:17)
--- NOTE | 2017-11-20 12:34 | PN ---
Progress Note (short form) - Note Progress Note: Patiet seen in bed this am. FUV right foot. +dry gangarene right forefoot toes 5&2 and mpj toes 3&4 are gangrenous, - drainage, -mal odor, +tender, +improved celultis to midfoot now, weak pulses b/l , +tender, wbc=9.2 Gangarene, Cellulitis PVD Anticipate intervention after vascular evaluation of current circulatory status. IVABX as per ID. MRI reviewed Santyl dressing change to right foot. will follow. 1 dose tylenol#3 1 tab po once now.
[2017-11-20 12:44] LABS: PLATELET ESTIMATE INCREASED
--- NOTE | 2017-11-20 12:49 | PN ---
Teaching Attending Note Name of Resident: Angelito Aguilar ATTENDING PHYSICIAN STATEMENT I saw and evaluated the patient. I reviewed the resident's note and discussed the case with the resident. I agree with the resident's findings and plan as documented with exceptions below. SUBJECTIVE: Patient seen and examined. Right foot pain, wondering about surgery, better mood today, no other complaints. OBJECTIVE: Vital Signs Period Temp Pulse Resp BP Sys/Yates Pulse Ox Last 24 Hr 98.1 F-100.6 F 86-101 16-18 103-157/50-95 99-99 Intake & Output 11/17/17 11/18/17 11/19/17 11/20/17 23:59 23:59 23:59 23:59 Intake Total 50 1110 100 Balance 50 1110 100 Weight 76 lb 3 oz 76 lb General: sitting in bed having breakfast, no acute distress Extremities: right foot dressing further exam unchanged with right 5th toe gangrene and cellulitis on dorsum of foot Abdomen:Soft, NT Home Medications Medication Instructions Recorded Acetaminophen W/ Codeine #3 1 tablet PO Q4HWA PRN 11/18/17 [Tylenol # 3 -] Ascorbate Calcium [Vitamin C] 500 mg PO DAILY 11/18/17 Calcium Carbonate/Vitamin D3 1 each PO DAILY 11/18/17 [Oyster Shell 500-Vit D3 200 Tb] Cholecalciferol (Vitamin D3) 2,000 unit PO DAILY 11/18/17 [Vitamin D3] Clopidogrel Bisulfate [Plavix] 75 mg PO DAILY 11/18/17 Famotidine [Pepcid] 20 mg PO DAILY 11/18/17 Ferrous Sulfate 325 mg PO DAILY 11/18/17 Gabapentin [Neurontin] 300 mg PO BID 11/18/17 Insulin (Levemir) [Levemir Vial] 3 unit SQ DAILY 11/18/17 Megestrol Acetate Oral Susp 400 mg PO BID 11/18/17 [Megace Liquid -] Metoprolol Succinate 25 mg PO DAILY 11/18/17 Multivitamin [Daily Multiple 1 each PO DAILY 11/18/17 Vitamin] Simvastatin [Zocor -] 20 mg PO HS 11/18/17 Sitagliptin Phosphate [Januvia] 100 mg PO DAILY 11/18/17 Warfarin Sodium [Coumadin] 1 mg PO HS 11/18/17 levETIRAcetam [Keppra -] 500 mg PO BID 11/18/17 Active Medications Acetaminophen (Tylenol -) 650 mg PO Q4H PRN PRN Reason: PAIN LEVEL 6-10 Last Admin: 11/20/17 10:23 Dose: 650 mg Acetaminophen/Codeine Phosphate (Tylenol # 3 -) 1 tab PO ONCE ONE Stop: 11/20/17 13:16 Ascorbic Acid (Vitamin C -) 500 mg PO DAILY [facility] Last Admin: 11/20/17 10:23 Dose: 500 mg Atorvastatin Calcium (Lipitor -) 10 mg PO HS [facility] Last Admin: 11/19/17 22:00 Dose: 10 mg Calcium Carbonate/Cholecalciferol (Os-Matt 500+D -) 1 tab PO DAILY [facility] Last Admin: 11/20/17 10:23 Dose: 1 tab Cholecalciferol (Vitamin D3 -) 2,000 unit PO DAILY [facility] Last Admin: 11/20/17 10:23 Dose: 2,000 unit Clopidogrel Bisulfate (Plavix -) 75 mg PO DAILY [facility] Last Admin: 11/20/17 10:22 Dose: 75 mg Collagenase (Santyl -) 1 applic TP DAILY [facility]; Protocol Last Admin: 11/20/17 12:17 Dose: 1 applic Ferrous Sulfate (Feosol -) 325 mg PO DAILY [facility] Last Admin: 11/20/17 10:22 Dose: 325 mg Gabapentin (Neurontin -) 300 mg PO BID [facility] Last Admin: 11/20/17 10:23 Dose: 300 mg Heparin Sodium (Porcine) (Heparin -) 1,000 unit IVPUSH PRN PRN PRN Reason: Heparin Heparin Sodium (Porcine) (Heparin -) 5,000 unit IVPUSH PRN PRN PRN Reason: Heparin Sodium Chloride (1/2 Normal Saline) 1,000 mls @ 75 mls/hr IV ASDIR [facility] Last Admin: 11/20/17 10:25 Dose: Not Given Piperacillin Sod/Tazobactam (Sod 2.25 gm/ Dextrose) 50 mls @ 100 mls/hr IVPB Q8H-IV [facility]; Protocol Last Admin: 11/20/17 10:28 Dose: 100 mls/hr Vancomycin HCl 1,000 mg/ (Dextrose) 250 mls @ 200 mls/hr IVPB Q24H [facility]; Protocol Last Admin: 11/19/17 14:06 Dose: 200 mls/hr HEPARIN SOD,PORK IN 0.45% NACL (Heparin-1/2ns 25,000 Units/500) 25,000 unit in 500 mls @ 16 mls/hr IVPB TITR [facility]; Protocol Last Titration: 11/20/17 06:37 Dose: 350 units/hr, 7 mls/hr Sodium Phosphate 15 mm/ Sodium (Chloride) 255 mls @ 62 mls/hr IVPB ONCE ONE Stop: 11/20/17 15:36 Insulin Aspart (Novolog Vial Sliding Scale -) 1 vial SQ ACHS [facility]; Protocol Last Admin: 11/20/17 12:14 Dose: 1 vial Levetiracetam (Keppra -) 500 mg PO BID [facility] Last Admin: 11/20/17 10:22 Dose: 500 mg Megestrol Acetate (Megace Oral Suspension -) 400 mg PO BID [facility] Last Admin: 11/20/17 10:23 Dose: 400 mg Metoprolol Succinate (Toprol Xl -) 25 mg PO DAILY [facility] Last Admin: 11/20/17 10:23 Dose: 25 mg Multivitamins/Minerals/Vitamin C (Tab-A-Vit -) 1 tab PO DAILY [facility] Last Admin: 11/20/17 10:22 Dose: 1 tab Ranitidine HCl (Zantac -) 150 mg PO DAILY [facility] Last Admin: 11/20/17 10:22 Dose: 150 mg Laboratory Results - last 24 hr 11/18/17 11/19/17 11/19/17 11:57 16:00 16:49 WBC RBC Hgb Hct MCV MCH MCHC RDW Plt Count MPV Absolute Neuts (auto) Total Counted Neutrophils % Neutrophils % (Manual) Band Neutrophils % Lymphocytes % Lymphocytes % (Manual) Monocytes % Monocytes % (Manual) Eosinophils % Eosinophils % (Manual) Basophils % Nucleated RBC % Platelet Estimate PT with INR INR PTT (Actin FS) 34.9 Sodium Potassium Chloride Carbon Dioxide Anion Gap BUN Creatinine Creat Clearance w eGFR POC Glucometer [phone] Random Glucose Calcium Phosphorus Magnesium Total Bilirubin AST ALT Alkaline Phosphatase Total Protein Albumin Blood Type Antibody Screen 11/19/17 11/19/17 11/20/17 22:00 22:06 04:40 WBC RBC Hgb Hct MCV MCH MCHC RDW Plt Count MPV Absolute Neuts (auto) Total Counted Neutrophils % Neutrophils % (Manual) Band Neutrophils % Lymphocytes % Lymphocytes % (Manual) Monocytes % Monocytes % (Manual) Eosinophils % Eosinophils % (Manual) Basophils % Nucleated RBC % Platelet Estimate PT with INR INR PTT (Actin FS) 123.6 H 192.8 H Sodium Potassium Chloride Carbon Dioxide Anion Gap BUN Creatinine Creat Clearance w eGFR POC Glucometer 104 Random Glucose Calcium Phosphorus Magnesium Total Bilirubin AST ALT Alkaline Phosphatase Total Protein Albumin Blood Type Antibody Screen 11/20/17 11/20/17 11/20/17 06:51 07:00 07:00 WBC 9.4 RBC 3.09 L Hgb 9.5 L Hct 28.5 L MCV 92.1 MCH 30.6 MCHC 33.3 RDW 16.5 H Plt Count 648 H MPV 8.2 Absolute Neuts (auto) 9.1 Total Counted 100 Neutrophils % 97.0 H Neutrophils % (Manual) 96.0 H Band Neutrophils % 1.0 Lymphocytes % 1.7 L D Lymphocytes % (Manual) 1.0 L Monocytes % 1.2 L D Monocytes % (Manual) 1 L Eosinophils % 0.0 D Eosinophils % (Manual) 1.0 Basophils % 0.1 Nucleated RBC % 0 Platelet Estimate Increased PT with INR 27.30 H INR 2.42 H PTT (Actin FS) Sodium Potassium Chloride Carbon Dioxide Anion Gap BUN Creatinine Creat Clearance w eGFR POC Glucometer 131 Random Glucose Calcium Phosphorus Magnesium Total Bilirubin AST ALT Alkaline Phosphatase Total Protein Albumin Blood Type Antibody Screen 11/20/17 11/20/17 11/20/17 07:00 07:00 11:45 WBC RBC Hgb Hct MCV MCH MCHC RDW Plt Count MPV Absolute Neuts (auto) Total Counted Neutrophils % Neutrophils % (Manual) Band Neutrophils % Lymphocytes % Lymphocytes % (Manual) Monocytes % Monocytes % (Manual) Eosinophils % Eosinophils % (Manual) Basophils % Nucleated RBC % Platelet Estimate PT with INR INR PTT (Actin FS) 71.5 H Sodium 141 Potassium 4.0 Chloride 107 Carbon Dioxide 23 Anion Gap 11 BUN 8 Creatinine 0.6 Creat Clearance w eGFR > 60 POC Glucometer Random Glucose 132 H Calcium 8.0 L Phosphorus 2.4 L Magnesium 1.9 Total Bilirubin 0.3 AST 32 ALT 32 Alkaline Phosphatase 134 H D Total Protein 5.9 L Albumin 2.2 L Blood Type B POSITIVE Antibody Screen Negative 11/20/17 12:02 WBC RBC Hgb Hct MCV MCH MCHC RDW Plt Count MPV Absolute Neuts (auto) Total Counted Neutrophils % Neutrophils % (Manual) Band Neutrophils % Lymphocytes % Lymphocytes % (Manual) Monocytes % Monocytes % (Manual) Eosinophils % Eosinophils % (Manual) Basophils % Nucleated RBC % Platelet Estimate PT with INR INR PTT (Actin FS) Sodium Potassium Chloride Carbon Dioxide Anion Gap BUN Creatinine Creat Clearance w eGFR POC Glucometer 259 Random Glucose Calcium Phosphorus Magnesium Total Bilirubin AST ALT Alkaline Phosphatase Total Protein Albumin Blood Type Antibody Screen Microbiology 11/18/17 12:35 Blood - Peripheral Venous Blood Culture - Preliminary NO GROWTH OBTAINED AFTER 48 HOURS, INCUBATION TO CONTINUE FOR 3 DAYS. 11/18/17 12:35 Blood - Peripheral Venous Blood Culture - Preliminary NO GROWTH OBTAINED AFTER 48 HOURS, INCUBATION TO CONTINUE FOR 3 DAYS. 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 Goal INR < 1.5. 2 units FFP, 10 mg Vitamin K, repeat INR later today. COntinue heparin drip. As discussed with daughter, possible allergy to Iodine few years back. Receive cortisone prior to surgery at [facility] a month ago. CTA on hold. Premedicate with prednisone 60 mg PO today and solumedrol/Benadryl tomorrow. NPO after midnight. IVF. Podiatry/ID input noted. Zosyn/vancomycin, wound care. MOnitor vanco levels. Possible amputation post vascular intervention. ISS, diabetic diet. HOld off standing insulin till PO intake stable. Continue metoprolol/keppra/statin/megestrol DVTPPX as above Dispo pending above . Code status DNR/DNI - confirmed with daughter and advance directives from [place].
[2017-11-20] MEDS ORDERED: ACETAMINOPHEN WITH CODEINE 300MG/30MG TABLET PO ONE (13:15)
--- NOTE | 2017-11-20 13:41 | PN ---
Progress Note (short form) - Note Progress Note: Vascular surgery pt to get 2 units of ffp and vit k. Will then repeat InR Pt for angiogram sharifa morning at 730. NPO past midnight. Bassam call DO
[2017-11-20] MEDS: HEPARIN SOD,PORK IN 0.45% NACL 25,000 UNIT/500 ML INFUS.BAG IVPB SCH (13:45)
--- NOTE | 2017-11-20 17:01 | PN ---
Progress Note, Physician History of Present Illness: Awake, responsive Supine in bed No c/o foot pain Low grade temp noted - Current Medication List Current Medications: Active Medications Acetaminophen (Tylenol -) 650 mg PO Q4H PRN PRN Reason: PAIN LEVEL 6-10 Last Admin: 11/20/17 10:23 Dose: 650 mg Ascorbic Acid (Vitamin C -) 500 mg PO DAILY [facility] Last Admin: 11/20/17 10:23 Dose: 500 mg Atorvastatin Calcium (Lipitor -) 10 mg PO HS [facility] Last Admin: 11/19/17 22:00 Dose: 10 mg Calcium Carbonate/Cholecalciferol (Os-Matt 500+D -) 1 tab PO DAILY [facility] Last Admin: 11/20/17 10:23 Dose: 1 tab Cholecalciferol (Vitamin D3 -) 2,000 unit PO DAILY [facility] Last Admin: 11/20/17 10:23 Dose: 2,000 unit Clopidogrel Bisulfate (Plavix -) 75 mg PO DAILY [facility] Last Admin: 11/20/17 10:22 Dose: 75 mg Collagenase (Santyl -) 1 applic TP DAILY [facility]; Protocol Last Admin: 11/20/17 12:17 Dose: 1 applic Diphenhydramine HCl (Benadryl Injection -) 25 mg IVPUSH ONCE ONE Stop: 11/20/17 21:01 Ferrous Sulfate (Feosol -) 325 mg PO DAILY [facility] Last Admin: 11/20/17 10:22 Dose: 325 mg Gabapentin (Neurontin -) 300 mg PO BID [facility] Last Admin: 11/20/17 10:23 Dose: 300 mg Heparin Sodium (Porcine) (Heparin -) 1,000 unit IVPUSH PRN PRN PRN Reason: Heparin Heparin Sodium (Porcine) (Heparin -) 5,000 unit IVPUSH PRN PRN PRN Reason: Heparin Sodium Chloride (1/2 Normal Saline) 1,000 mls @ 75 mls/hr IV ASDIR [facility] Last Admin: 11/20/17 10:25 Dose: Not Given Piperacillin Sod/Tazobactam (Sod 2.25 gm/ Dextrose) 50 mls @ 100 mls/hr IVPB Q8H-IV [facility]; Protocol Last Admin: 11/20/17 10:28 Dose: 100 mls/hr Vancomycin HCl 1,000 mg/ (Dextrose) 250 mls @ 200 mls/hr IVPB Q24H [facility]; Protocol Last Admin: 11/19/17 14:06 Dose: 200 mls/hr HEPARIN SOD,PORK IN 0.45% NACL (Heparin-1/2ns 25,000 Units/500) 25,000 unit in 500 mls @ 16 mls/hr IVPB TITR [facility]; Protocol Last Titration: 11/20/17 06:37 Dose: 350 units/hr, 7 mls/hr Insulin Aspart (Novolog Vial Sliding Scale -) 1 vial SQ ACHS [facility]; Protocol Last Admin: 11/20/17 12:14 Dose: 1 vial Levetiracetam (Keppra -) 500 mg PO BID [facility] Last Admin: 11/20/17 10:22 Dose: 500 mg Megestrol Acetate (Megace Oral Suspension -) 400 mg PO BID [facility] Last Admin: 11/20/17 10:23 Dose: 400 mg Methylprednisolone Sodium Succinate (Solu-Medrol -) 125 mg IVPUSH ONCE ONE Stop: 11/21/17 21:01 Metoprolol Succinate (Toprol Xl -) 25 mg PO DAILY [facility] Last Admin: 11/20/17 10:23 Dose: 25 mg Multivitamins/Minerals/Vitamin C (Tab-A-Vit -) 1 tab PO DAILY [facility] Last Admin: 11/20/17 10:22 Dose: 1 tab Prednisone (Deltasone -) 60 mg PO ONCE ONE Stop: 11/20/17 20:01 Ranitidine HCl (Zantac -) 150 mg PO DAILY [facility] Last Admin: 11/20/17 10:22 Dose: 150 mg - Objective Vital Signs: Vital Signs Temperature 98.6 F 11/20/17 14:35 Pulse Rate 86 11/20/17 14:35 Respiratory Rate 16 11/20/17 14:35 Blood Pressure 122/78 11/20/17 14:35 O2 Sat by Pulse Oximetry (%) 99 11/20/17 09:00 Constitutional: Yes: No Distress Eyes: Yes: Conjunctiva Clear Cardiovascular: Yes: Regular Rate and Rhythm, Murmur, S1, S2 Respiratory: Yes: CTA Bilaterally Gastrointestinal: Yes: Normal Bowel Sounds, Soft. No: Tenderness Extremities: Yes: Other (R foot with gangrene at toe amputation site, 5th toe. 2nd toe cyanotic. Decreased erythema, dorsum of foot) Labs: CBC, BMP 11/20/17 07:00 11/20/17 07:00 INR, PTT INR 2.42 (0.83-1.09) H 11/20/17 07:00 Assessment/Plan Gangrene R foot Ischemia v. cellulitis R foot Low grade temp Continue empiric vancomycin/ zosyn
[2017-11-20] MEDS: VANCOMYCIN 1,000 MG in DEXTROSE 5%-WATER - 250 ML IVPB SCH ×2 (17:18→20:40)
[2017-11-20 17:48] LABS: INR 1.27 (0.83-1.09); PROTHROMBIN TIME (PATIENT) 14.3 SEC (9.7-13.0)
[2017-11-20] MEDS ORDERED: predniSONE 20 MG TABLET (UD) PO ONE ×2 (20:00→22:00)
[2017-11-20] MEDS ORDERED: NAPH,MB-DB/K PH,MBDB POWDER PACKET PO ONE (21:30)
[2017-11-20] MEDS: ATORVASTATIN CA 10 MG TABLET (FP) PO SCH (21:32)
[2017-11-21] MEDS ORDERED: PIPERACILLIN/TAZOBACTAM 2.25 GM VIAL IVPB ONE ×3 (00:12→16:54)
[2017-11-21] MEDS ORDERED: DEXTROSE 5%-WATER - 50 ML IVPB ONE ×3 (00:13→16:55)
[2017-11-21] MEDS: SODIUM CHLORIDE 0.45% 1,000 ML IV SCH ×2 (01:17→09:41)
[2017-11-21] MEDS: PIPERACILLIN/TAZOB 2.25 GM 2.25 GM in DEXTROSE 5%-WATER - 50 ML IVPB SCH ×3 (01:18→17:12)
[2017-11-21] MEDS ORDERED: MORPHINE SULFATE 2 MG/ML VIAL IVPUSH ONE (05:35)
[2017-11-21] MEDS: INSULIN SLIDING SCALE (NOVOLOG) 1 VIAL SQ SCH ×4 (06:26→23:17)
[2017-11-21] MEDS ORDERED: INSULIN (NOVOLOG) ASPART 100 UNITS/ML 10ML VIAL ONE (06:53)
[2017-11-21] MEDS ORDERED: PROPOFOL 20 ML ONE (07:03)
[2017-11-21] MEDS ORDERED: SUCCINYLCHOLINE CHLORIDE 200 MG/10 ML VIAL ONE (07:03)
[2017-11-21] MEDS ORDERED: MIDAZOLAM HCL 2 MG/2 ML SINGLE DOSE VIAL ONE (07:04)
[2017-11-21] MEDS ORDERED: HEPARIN NA (PORCINE) 5,000 UNITS/ML 1ML VIAL ONE (07:21)
[2017-11-21] MEDS ORDERED: HYDROCORTISONE SOD SUCCINATE 2 ML ONE (07:40)
[2017-11-21] MEDS ORDERED: methylPREDNISolone NA SUCC 125 MG/2 ML VIAL IVPUSH ONE ×2 (08:00→21:00)
[2017-11-21] MEDS ORDERED: LIDOCAINE HCL 1%, 10 MG/ML (20ML VIAL) INF ONE (08:16)
[2017-11-21 08:25] LABS: HEMATOCRIT 26.1 % (32.4-45.2); HEMOGLOBIN 8.6 GM/dL (10.7-15.3); MCH 30.4 pg (25.7-33.7); MEAN CELL VOLUME 92.1 fl (80-96); MEAN PLT VOLUME 8.6 fl (7.5-11.1); PLATELET COUNT 536 K/MM3 (134-434); RBC 2.83 M/mm3 (3.60-5.2); RDW 16.5 % (11.6-15.6); WHITE BLOOD COUNT 7.9 K/mm3 (4.0-10.0)
[2017-11-21 08:47] LABS: INR 1.09 (0.83-1.09); PROTHROMBIN TIME (PATIENT) 12.3 SEC (9.7-13.0)
[2017-11-21 08:53] LABS: ALBUMIN 2.4 g/dl (3.4-5.0); ANION GAP 9 (8-16); BLOOD UREA NITROGEN 8 mg/dL (7-18); CALCIUM 7.9 mg/dL (8.5-10.1); CHLORIDE 110 mmol/L (98-107); CO2 25 mmol/L (21-32); CREATININE 0.5 mg/dL (0.55-1.02); GLUCOSE,RANDOM 197 mg/dL (74-106); POTASSIUM 4.4 mmol/L (3.5-5.1); SGOT/AST 29 U/L (15-37); SGPT/ALT 29 U/L (12-78); SODIUM 144 mmol/L (136-145)
[2017-11-21 08:54] LABS: ALK PHOS 113 U/L (45-117); BILIRUBIN,TOTAL 0.3 mg/dL (0.2-1.0); TOT PROT 5.7 g/dl (6.4-8.2)
--- NOTE | 2017-11-21 08:55 | PN ---
Progress Note (short form) - Note Progress Note: Vascular Surgery S/P angiogram. Main runoff is PT going down to ankle. Only collateral circulation going into foot. No flow to forefoot. SFA and popliteal stents open. supportive care. No bypassable disease. If leg gets worse, pt would need BKA. Bassam Martinez DO
[2017-11-21] MEDS ORDERED: PT OWN MED DRAWER 7, Y5N ONE ×2 (09:07→23:59)
[2017-11-21] MEDS ORDERED: ACETAMINOPHEN 325 MG TABLET (FP) PO PRN (09:41)
[2017-11-21] MEDS: HEPARIN SOD,PORK IN 0.45% NACL 25,000 UNITS/500 ML INFUS.BAG IVPB SCH (10:20)
[2017-11-21] MEDS: MEGESTROL ACETATE 400 MG/10 ML UNIT DOSE CUP PO SCH ×2 (10:30→22:25)
[2017-11-21] MEDS: GABAPENTIN 300 MG CAPSULE (FP) PO SCH ×2 (10:30→22:24)
[2017-11-21] MEDS: levETIRAcetam 500 MG TABLET (FP) PO SCH ×2 (10:30→22:24)
[2017-11-21] MEDS: MULTIVITAMINS (DAILY MVI) TABLET (FP) PO SCH (10:30)
[2017-11-21] MEDS: FERROUS SO4 325 MG TABLET (FP) PO SCH (10:30)
[2017-11-21] MEDS: CALCIUM 500MG/VIT-D 200 UNITS COMBO TABLET (FP) PO SCH (10:30)
[2017-11-21] MEDS: CLOPIDOGREL BISULFATE 75 MG TABLET (FP) PO SCH (10:30)
[2017-11-21] MEDS: metoPROLOL SUCCINATE 25 MG TAB.SR.24H (FP) PO SCH (10:31)
[2017-11-21] MEDS: RANITIDINE HCL 150 MG TABLET (FP) PO SCH (10:31)
[2017-11-21] MEDS: CHOLECALCIFEROL (VITAMIN D3) 1,000 UNIT TABLET (FP) PO SCH (10:31)
[2017-11-21] MEDS: ASCORBIC ACID 500 MG TABLET (FP) PO SCH (10:31)
[2017-11-21] MEDS: COLLAGENASE CLOSTRIDIUM HIST. 30 GRAMS TUBE TP SCH (10:32)
--- NOTE | 2017-11-21 13:06 | PN ---
Progress Note, Physician History of Present Illness: Lethargic today S/P angiogram Supine in bed No c/o foot pain Afebrile - Current Medication List Current Medications: Active Medications Acetaminophen (Tylenol -) 650 mg PO Q4H PRN PRN Reason: PAIN LEVEL 6-10 Ascorbic Acid (Vitamin C -) 500 mg PO DAILY [facility] Last Admin: 11/21/17 10:31 Dose: Not Given Atorvastatin Calcium (Lipitor -) 10 mg PO HS [facility] Calcium Carbonate/Cholecalciferol (Os-Matt 500+D -) 1 tab PO DAILY [facility] Last Admin: 11/21/17 10:30 Dose: Not Given Cholecalciferol (Vitamin D3 -) 2,000 unit PO DAILY [facility] Last Admin: 11/21/17 10:31 Dose: Not Given Clopidogrel Bisulfate (Plavix -) 75 mg PO DAILY [facility] Last Admin: 11/21/17 10:30 Dose: Not Given Collagenase (Santyl -) 1 applic TP DAILY [facility]; Protocol Last Admin: 11/21/17 10:32 Dose: Not Given Ferrous Sulfate (Feosol -) 325 mg PO DAILY [facility] Last Admin: 11/21/17 10:30 Dose: Not Given Gabapentin (Neurontin -) 300 mg PO BID [facility] Last Admin: 11/21/17 10:30 Dose: Not Given Heparin Sodium (Porcine) (Heparin -) 1,000 unit IVPUSH PRN PRN PRN Reason: Heparin Heparin Sodium (Porcine) (Heparin -) 5,000 unit IVPUSH PRN PRN PRN Reason: Heparin HEPARIN SOD,PORK IN 0.45% NACL (Heparin-1/2ns 25,000 Units/500) 25,000 units in 500 mls @ 16 mls/hr IVPB TITR [facility]; Protocol Last Admin: 11/21/17 10:20 Dose: 800 units/hr, 16 mls/hr Sodium Chloride (1/2 Normal Saline) 1,000 mls @ 75 mls/hr IV ASDIR [facility] Last Admin: 11/21/17 09:41 Dose: 75 mls/hr Vancomycin HCl (Vancomycin 1 Gm Premix -) 1 gm in 200 mls @ 133.333 mls/hr IVPB DAILY@1300 [facility]; Protocol Piperacillin Sod/Tazobactam (Sod 2.25 gm/ Dextrose) 50 mls @ 100 mls/hr IVPB Q8H-IV [facility]; Protocol Last Admin: 11/21/17 11:40 Dose: 100 mls/hr Insulin Aspart (Novolog Vial Sliding Scale -) 1 vial SQ ACHS [facility]; Protocol Last Admin: 11/21/17 12:50 Dose: Not Given Levetiracetam (Keppra -) 500 mg PO BID [facility] Last Admin: 11/21/17 10:30 Dose: Not Given Megestrol Acetate (Megace Oral Suspension -) 400 mg PO BID [facility] Last Admin: 11/21/17 10:30 Dose: Not Given Metoprolol Succinate (Toprol Xl -) 25 mg PO DAILY [facility] Last Admin: 11/21/17 10:31 Dose: Not Given Multivitamins/Minerals/Vitamin C (Tab-A-Vit -) 1 tab PO DAILY [facility] Last Admin: 11/21/17 10:30 Dose: Not Given Ranitidine HCl (Zantac -) 150 mg PO DAILY [facility] Last Admin: 11/21/17 10:31 Dose: Not Given - Objective Vital Signs: Vital Signs Temperature 98.4 F 11/21/17 11:52 Pulse Rate 79 11/21/17 11:52 Respiratory Rate 18 11/21/17 11:52 Blood Pressure 139/79 11/21/17 11:52 O2 Sat by Pulse Oximetry (%) 99 11/21/17 11:52 Constitutional: Yes: No Distress, Cachectic Eyes: Yes: Conjunctiva Clear Cardiovascular: Yes: Regular Rate and Rhythm, S1, S2 Respiratory: Yes: CTA Bilaterally Gastrointestinal: Yes: Normal Bowel Sounds, Soft. No: Tenderness Extremities: Yes: Other (Dry gangrene R foot Decreased erythema) Labs: CBC, BMP 11/21/17 07:00 11/21/17 07:00 INR, PTT INR 1.09 (0.83-1.09) 11/21/17 07:00 Assessment/Plan Gangrene R foot Ischemia v. cellulitis R foot Continue empiric vancomycin/ zosyn
--- NOTE | 2017-11-21 14:58 | PN ---
Progress Note (short form) - Note Progress Note: Patiet seen in bed this pm. FUV right foot. +dry gangarene right forefoot toes 5&2 and mpj toes 3&4 are gangrenous, - drainage, -mal odor, +tender, +improved celultis to midfoot now, weak pulses b/l , +tender, wbc=7.9, Gangarene, Cellulitis PVD Vascular procedure done today. Unable to re-vascularize. Will continue with palliative care at this time. DC Santyl change to daily betadine. IVABX as per ID. MRI reviewed. Betadine dressing change daily. will follow.
[2017-11-21] MEDS: VANCOMYCIN 1 GM PREMIX - 1 GM/200 ML BAG IVPB SCH (15:18)
[2017-11-21] MEDS: traMADol HCL 50 MG TABLET PO PRN (17:42)
--- NOTE | 2017-11-21 17:43 | PN ---
Teaching Attending Note Name of Resident: Angelito Aguilar ATTENDING PHYSICIAN STATEMENT I saw and evaluated the patient. I reviewed the resident's note and discussed the case with the resident. I agree with the resident's findings and plan as documented with exceptions below. SUBJECTIVE: Patient seen and examined. Right foot pain controlled currently, no other complaints. OBJECTIVE: Vital Signs Period Temp Pulse Resp BP Sys/Yates Pulse Ox Last 24 Hr 97.9 F-99.2 F 75-108 8-18 112-141/48-79 97-100 Intake & Output 11/18/17 11/19/17 11/20/17 11/21/17 23:59 23:59 23:59 23:59 Intake Total 50 1110 1884 1934 Output Total 50 Balance 50 1110 1884 1884 Weight 76 lb 3 oz 76 lb General: sitting in bed in no acute distress Extremities: right 4th toe gangrene, dressing, tenderness over right foot area, unable to palpate DP/PT pulses Active Medications Acetaminophen (Tylenol -) 650 mg PO Q4H PRN PRN Reason: PAIN LEVEL 6-10 Ascorbic Acid (Vitamin C -) 500 mg PO DAILY [facility] Last Admin: 11/21/17 10:31 Dose: Not Given Atorvastatin Calcium (Lipitor -) 10 mg PO [facility] Calcium Carbonate/Cholecalciferol (Os-Matt 500+D -) 1 tab PO DAILY [facility] Last Admin: 11/21/17 10:30 Dose: Not Given Cholecalciferol (Vitamin D3 -) 2,000 unit PO DAILY [facility] Last Admin: 11/21/17 10:31 Dose: Not Given Clopidogrel Bisulfate (Plavix -) 75 mg PO DAILY [facility] Last Admin: 11/21/17 10:30 Dose: Not Given Collagenase (Santyl -) 1 applic TP DAILY [facility]; Protocol Last Admin: 11/21/17 10:32 Dose: Not Given Ferrous Sulfate (Feosol -) 325 mg PO DAILY [facility] Last Admin: 11/21/17 10:30 Dose: Not Given Gabapentin (Neurontin -) 300 mg PO BID [facility] Last Admin: 11/21/17 10:30 Dose: Not Given Heparin Sodium (Porcine) (Heparin -) 1,000 unit IVPUSH PRN PRN PRN Reason: Heparin Heparin Sodium (Porcine) (Heparin -) 5,000 unit IVPUSH PRN PRN PRN Reason: Heparin HEPARIN SOD,PORK IN 0.45% NACL (Heparin-1/2ns 25,000 Units/500) 25,000 units in 500 mls @ 16 mls/hr IVPB TITR [facility]; Protocol Last Admin: 11/21/17 10:20 Dose: 800 units/hr, 16 mls/hr Sodium Chloride (1/2 Normal Saline) 1,000 mls @ 75 mls/hr IV ASDIR [facility] Last Admin: 11/21/17 09:41 Dose: 75 mls/hr Vancomycin HCl (Vancomycin 1 Gm Premix -) 1 gm in 200 mls @ 133.333 mls/hr IVPB DAILY@1300 [facility]; Protocol Last Admin: 11/21/17 15:18 Dose: 133.333 mls/hr Piperacillin Sod/Tazobactam (Sod 2.25 gm/ Dextrose) 50 mls @ 100 mls/hr IVPB Q8H-IV [facility]; Protocol Last Admin: 11/21/17 17:12 Dose: 100 mls/hr Insulin Aspart (Novolog Vial Sliding Scale -) 1 vial SQ ACHS [facility]; Protocol Last Admin: 11/21/17 17:10 Dose: 8 units Levetiracetam (Keppra -) 500 mg PO BID [facility] Last Admin: 11/21/17 10:30 Dose: Not Given Megestrol Acetate (Megace Oral Suspension -) 400 mg PO BID [facility] Last Admin: 11/21/17 10:30 Dose: Not Given Metoprolol Succinate (Toprol Xl -) 25 mg PO DAILY [facility] Last Admin: 11/21/17 10:31 Dose: Not Given Multivitamins/Minerals/Vitamin C (Tab-A-Vit -) 1 tab PO DAILY [facility] Last Admin: 11/21/17 10:30 Dose: Not Given Ranitidine HCl (Zantac -) 150 mg PO DAILY [facility] Last Admin: 11/21/17 10:31 Dose: Not Given Tramadol HCl (Ultram -) 50 mg PO Q6H PRN PRN Reason: PAIN LEVEL 6-10 Last Admin: 11/21/17 17:42 Dose: 50 mg Laboratory Results - last 24 hr 11/20/17 11/20/17 11/21/17 16:00 21:02 05:43 WBC RBC Hgb Hct MCV MCH MCHC RDW Plt Count MPV PT with INR 14.30 H INR 1.27 H PTT (Actin FS) Sodium Potassium Chloride Carbon Dioxide Anion Gap BUN Creatinine Creat Clearance w eGFR POC Glucometer 123 217 Random Glucose Calcium Total Bilirubin AST ALT Alkaline Phosphatase Total Protein Albumin 11/21/17 11/21/17 11/21/17 07:00 07:00 07:00 WBC 7.9 RBC 2.83 L Hgb 8.6 L Hct 26.1 L MCV 92.1 MCH 30.4 MCHC 33.0 RDW 16.5 H Plt Count 536 H MPV 8.6 PT with INR INR PTT (Actin FS) 36.1 Sodium 144 Potassium 4.4 Chloride 110 H Carbon Dioxide 25 Anion Gap 9 BUN 8 Creatinine 0.5 L Creat Clearance w eGFR > 60 POC Glucometer Random Glucose 197 H Calcium 7.9 L Total Bilirubin 0.3 AST 29 ALT 29 Alkaline Phosphatase 113 D Total Protein 5.7 L Albumin 2.4 L 11/21/17 11/21/17 07:00 17:05 WBC RBC Hgb Hct MCV MCH MCHC RDW Plt Count MPV PT with INR 12.30 INR 1.09 PTT (Actin FS) Sodium Potassium Chloride Carbon Dioxide Anion Gap BUN Creatinine Creat Clearance w eGFR POC Glucometer 332 Random Glucose Calcium Total Bilirubin AST ALT Alkaline Phosphatase Total Protein Albumin Microbiology 11/18/17 12:35 Blood - Peripheral Venous Blood Culture - Preliminary NO GROWTH OBTAINED AFTER 72 HOURS, INCUBATION TO CONTINUE FOR 2 DAYS. 11/18/17 12:35 Blood - Peripheral Venous Blood Culture - Preliminary NO GROWTH OBTAINED AFTER 72 HOURS, INCUBATION TO CONTINUE FOR 2 DAYS. 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 heparin drip, hold coumadin pending podiatry recs. Podiatry input noted, palliative care with dressing changes. Follow up for surgical intervention, ?TMA vs BKA. ID input noted, Zosyn/vancomycin, monitor vanco levels. ISs, diabetic diet, blood sugars labile, hold off on standing coverage for ow. Continue metoprolol/keppra/statin/megestrol DVTPPX as above Dispo pending above . Code status DNR/DNI - confirmed with daughter and advance directives from [place].
--- NOTE | 2017-11-21 18:43 | PN ---
Physical Exam: SUBJECTIVE: Patient seen and examined at bedside c/o of R leg pain from knee to foot. NPO overnight w/ prednisone 60. Denies any fever,CP, n/v/d, abd pain. Went to OR today. OBJECTIVE: Vital Signs Period Temp Pulse Resp BP Sys/Yates Pulse Ox Last 24 Hr 97.9 F-99.2 F 75-108 8-18 112-141/48-79 97-100 GENERAL: AOx3. NAD. cachectic and thin appearing, eating breakfast. good mood HEENT: NAD. b/l temporal wasting. PERRL, sclera anicteric, conjunctiva clear. MMM. LUNGS: CTAB. No accessory muscle use. HEART: RRR, normal S1 and S2 without murmur, audible click from valve. well healed sternal scar ABDOMEN: well-healed abdominal scar. Soft, NTND +BS, no guarding, no rebound, no masses. MUSCULOSKELETAL: wnl rom at shoulders, elbows, wrists. decr in b/l hips, knees and ankles. UPPER EXTREMITIES: 2+ radial pulses, warm, well-perfused. No cyanosis. No clubbing. No peripheral edema. LOWER EXTREMITIES: RLE in dressing, right gangrenous 5th toe, overlying erythema on the dorsum of the right foot, unable to palpate R DP or PT pulses, faint left dp pulse. warm. ttp at R toes and at foot. NEUROLOGICAL: Cranial nerves II-XII intact. Normal speech. facial symmetry. power generalized weakness 4/5 SKIN: Warm, dry, normal turgor Laboratory Results - last 24 hr 11/20/17 11/21/17 11/21/17 21:02 05:43 07:00 WBC 7.9 RBC 2.83 L Hgb 8.6 L Hct 26.1 L MCV 92.1 MCH 30.4 MCHC 33.0 RDW 16.5 H Plt Count 536 H MPV 8.6 PT with INR INR PTT (Actin FS) Sodium Potassium Chloride Carbon Dioxide Anion Gap BUN Creatinine Creat Clearance w eGFR POC Glucometer 123 217 Random Glucose Calcium Total Bilirubin AST ALT Alkaline Phosphatase Total Protein Albumin 11/21/17 11/21/17 11/21/17 07:00 07:00 07:00 WBC RBC Hgb Hct MCV MCH MCHC RDW Plt Count MPV PT with INR 12.30 INR 1.09 PTT (Actin FS) 36.1 Sodium 144 Potassium 4.4 Chloride 110 H Carbon Dioxide 25 Anion Gap 9 BUN 8 Creatinine 0.5 L Creat Clearance w eGFR > 60 POC Glucometer Random Glucose 197 H Calcium 7.9 L Total Bilirubin 0.3 AST 29 ALT 29 Alkaline Phosphatase 113 D Total Protein 5.7 L Albumin 2.4 L 11/21/17 17:05 WBC RBC Hgb Hct MCV MCH MCHC RDW Plt Count MPV PT with INR INR PTT (Actin FS) Sodium Potassium Chloride Carbon Dioxide Anion Gap BUN Creatinine Creat Clearance w eGFR POC Glucometer 332 Random Glucose Calcium Total Bilirubin AST ALT Alkaline Phosphatase Total Protein Albumin Active Medications Generic Name Dose Route Start Last Admin Trade Name Freq PRN Reason Stop Dose Admin Acetaminophen 650 mg 11/21/17 09:41 Tylenol - PO Q4H PRN PAIN LEVEL 6-10 Ascorbic Acid 500 mg 11/21/17 10:00 11/21/17 10:31 Vitamin C - PO Not Given DAILY [facility] Atorvastatin Calcium 10 mg 11/21/17 22:00 Lipitor - PO [facility] Calcium Carbonate/Cholecalciferol 1 tab 11/21/17 10:00 11/21/17 10:30 Os-Matt 500+D - PO Not Given DAILY [facility] Cholecalciferol 2,000 unit 11/21/17 10:00 11/21/17 10:31 Vitamin D3 - PO Not Given DAILY [facility] Clopidogrel Bisulfate 75 mg 11/21/17 10:00 11/21/17 10:30 Plavix - PO Not Given DAILY [facility] Collagenase 1 applic 11/21/17 10:00 11/21/17 10:32 Santyl - TP Not Given DAILY [facility] Protocol Ferrous Sulfate 325 mg 11/21/17 10:00 11/21/17 10:30 Feosol - PO Not Given DAILY [facility] Gabapentin 300 mg 11/21/17 10:00 11/21/17 10:30 Neurontin - PO Not Given BID [facility] Heparin Sodium (Porcine) 1,000 unit 11/21/17 08:56 Heparin - IVPUSH PRN PRN Heparin Heparin Sodium (Porcine) 5,000 unit 11/21/17 08:56 Heparin - IVPUSH PRN PRN Heparin HEPARIN SOD,PORK IN 0.45% NACL 25,000 units in 500 mls @ 16 mls/hr 11/21/17 09 :00 11/21/17 10:20 Heparin-1/2ns 25,000 Units/500 IVPB 800 units/hr TITR GAUNAKO 16 mls/hr Administration Protocol 800 UNITS/HR Sodium Chloride 1,000 mls @ 75 mls/hr 11/21/17 09:41 11/21/17 09:41 1/2 Normal Saline IV 75 mls/hr ASDIR GUANAKO Administration Vancomycin HCl 1 gm in 200 mls @ 133.333 mls/hr 11/21/17 13:00 11/21/17 15:18 Vancomycin 1 Gm Premix - IVPB 133.333 mls/hr DAILY@1300 [facility] Administration Protocol Piperacillin Sod/Tazobactam 50 mls @ 100 mls/hr 11/21/17 10:00 11/21/17 17:12 Sod 2.25 gm/ Dextrose IVPB 100 mls/hr Q8H-IV [facility] Administration Protocol Insulin Aspart 1 vial 11/21/17 11:00 11/21/17 17:10 Novolog Vial Sliding Scale - SQ 8 units ACHS [facility] Administration Protocol Levetiracetam 500 mg 11/21/17 10:00 11/21/17 10:30 Keppra - PO Not Given BID GUANAKO Megestrol Acetate 400 mg 11/21/17 10:00 11/21/17 10:30 Megace Oral Suspension - PO Not Given BID GUANAKO Metoprolol Succinate 25 mg 11/21/17 10:00 11/21/17 10:31 Toprol Xl - PO Not Given DAILY [facility] Multivitamins/Minerals/Vitamin C 1 tab 11/21/17 10:00 11/21/17 10:30 Tab-A-Vit - PO Not Given DAILY GUANAKO Ranitidine HCl 150 mg 11/21/17 10:00 11/21/17 10:31 Zantac - PO Not Given DAILY GUANAKO Tramadol HCl 50 mg 11/21/17 17:03 11/21/17 17:42 Ultram - PO 50 mg Q6H PRN Administration PAIN LEVEL 6-10 ASSESSMENT/PLAN: 86 yr old woman with PMH of DM, Afib, open heart bypass (1991), gastrectomy ( 2012), lung cancer treated with chemotherapy + pneumothorax (08/2017), and multiple falls leading to R hip/femur fracture and subdural hematoma, brought in from SNF for right toe gangrene admitted for further evaluation and management. #right toe gangrene with cellulitis - Pt went to OR today, premedications of solumedrol/Benadryl were given. vascular surgery unable to revascularize, will f /u w/ podiatry for possible BKA. -podiatry(dr. castillo) and vasc(dr. call) -was premedicated with solumedrol/Benadryl in preperation for use of contrast intra-op. possible allergy to Iodine few years back. Received cortisone prior to surgery at [facility] a month ago -GI PPX - zantac -IVF 1/2NS - heparin drip, hold coumadin pending podiatry recs -vitamin K 10 mg and FFP given yesterday - CTA on hold. - wound care with santyl + dressing - c/w IV vanc 1gm /zosyn 3.375 q8hr started 11/18 -vanc trough for 11/22 at 12pm before 4th vanc dose - ID consult - Dr. Pitt - if possible obtain culture report from previous amputation at [facility] - continuous bedrest rest, fall risk precautions, will initiate PT post- surgical pending surgical recommendations - tylenol for pain control, uptitrate if further pain control needed -Podiatry recs, palliative care with dressing changes. Follow up for surgical intervention #Severe Malnutrition - BMI 14. pt is cachetic w/ b/l temporal wasting on physical exam. pt eating breakfast today - megace 400mg po bid - continue supplements; ca, MVI, vitamins #Decubitis sacral ulcer -wound care -oob w/ assist as tolerated and change position in bed #DM - hold home januvia and levemir - NISS/BGM ACHS - continue gabapentin 300mg po BID - A1c ordered #Afib/mechanical aortic valve - INR goal 2.5-3.5, currently therapeutic, hold coumadin(1 mg daily) for surgery - when INR <2.5, initiate heparin drip - repeat labs coags in the AM #PAD/PVD - plavix 75mg po daily, continue daily - pt had recent stents #HTN - metoprolol succ 25mg po daily #Seizures - keppra 500mg po bid daily #HLD - zocor 20mg po HS #s/p gastrectomy - pepcid 20mg po daily #chronic anemia - ferrous sulfate 325mg po daily #DVT - warfarin held for surgery sharifa. Hep gtt started #FEN - / NS -dysphagia ordered as per [facility] records that's what the pt was eating. -replete phosph #Code status - adult without capacity with surrogate(daughter Melvina) - confirmed DNR/DNI, paperwork placed in chart. palliative consulted given pt's extensive co-morbidities. Visit type - Emergency Visit Emergency Visit: Yes ED Registration Date: 11/18/17 Care time: The patient presented to the Emergency Department on the above date and was hospitalized for further evaluation of their emergent condition. - New Patient This patient is new to me today: Yes Date on this admission: 11/21/17 - Critical Care Critical Care patient: No
[2017-11-21 20:49] LABS: INR 1.32 (0.83-1.09); PROTHROMBIN TIME (PATIENT) 14.9 SEC (9.7-13.0)
[2017-11-21] MEDS: ATORVASTATIN CA 10 MG TABLET (FP) PO SCH (22:24)
[2017-11-22] MEDS ORDERED: PIPERACILLIN/TAZOBACTAM 2.25 GM VIAL IVPB ONE ×3 (00:05→23:42)
[2017-11-22] MEDS ORDERED: DEXTROSE 5%-WATER - 50 ML IVPB ONE ×3 (00:05→23:42)
[2017-11-22] MEDS: SODIUM CHLORIDE 0.45% 1,000 ML IV SCH ×3 (00:07→22:08)
[2017-11-22] MEDS: PIPERACILLIN/TAZOB 2.25 GM 2.25 GM in DEXTROSE 5%-WATER - 50 ML IVPB SCH ×3 (01:23→17:01)
[2017-11-22] MEDS ORDERED: INSULIN (NOVOLOG) ASPART 100 UNITS/ML 10ML VIAL ONE ×2 (05:38→06:57)
[2017-11-22] MEDS: INSULIN SLIDING SCALE (NOVOLOG) 1 VIAL SQ SCH ×4 (06:42→21:54)
[2017-11-22 08:31] LABS: HEMATOCRIT 21.2 % (32.4-45.2); MCH 30.3 pg (25.7-33.7); MEAN CELL VOLUME 91.7 fl (80-96); MEAN PLT VOLUME 8.1 fl (7.5-11.1); PLATELET COUNT 446 K/MM3 (134-434); RBC 2.32 M/mm3 (3.60-5.2); RDW 16.4 % (11.6-15.6); WHITE BLOOD COUNT 5.9 K/mm3 (4.0-10.0)
[2017-11-22] MEDS ORDERED: PT OWN MED DRAWER 7, Y5N ONE ×4 (08:51→20:25)
[2017-11-22] MEDS: RANITIDINE HCL 150 MG TABLET (FP) PO SCH (09:04)
[2017-11-22] MEDS: CLOPIDOGREL BISULFATE 75 MG TABLET (FP) PO SCH (09:04)
[2017-11-22] MEDS: ASCORBIC ACID 500 MG TABLET (FP) PO SCH (09:04)
[2017-11-22] MEDS: GABAPENTIN 300 MG CAPSULE (FP) PO SCH ×2 (09:04→21:46)
[2017-11-22] MEDS: CALCIUM 500MG/VIT-D 200 UNITS COMBO TABLET (FP) PO SCH (09:05)
[2017-11-22] MEDS: levETIRAcetam 500 MG TABLET (FP) PO SCH ×2 (09:05→21:46)
[2017-11-22] MEDS: FERROUS SO4 325 MG TABLET (FP) PO SCH (09:05)
[2017-11-22] MEDS: CHOLECALCIFEROL (VITAMIN D3) 1,000 UNIT TABLET (FP) PO SCH (09:05)
[2017-11-22] MEDS: MULTIVITAMINS (DAILY MVI) TABLET (FP) PO SCH (09:05)
[2017-11-22] MEDS: metoPROLOL SUCCINATE 25 MG TAB.SR.24H (FP) PO SCH (09:05)
[2017-11-22] MEDS: COLLAGENASE CLOSTRIDIUM HIST. 30 GRAMS TUBE TP SCH (09:06)
[2017-11-22] MEDS: MEGESTROL ACETATE 400 MG/10 ML UNIT DOSE CUP PO SCH ×2 (09:08→21:47)
--- NOTE | 2017-11-22 11:10 | PN ---
Physical Exam: SUBJECTIVE: Patient seen and examined at bed side. Overnight ws noted to have some bleeding from the groin site. Dr. Call was made aware and pressure was applies t the site w/ bandage dressing. Pt alert, eating breakfast. No complaints and denies any fevers, chills, n/V/D, weakness, confusion, urinary sxs. On hep gtt. OBJECTIVE: Vital Signs Period Temp Pulse Resp BP Sys/Yates Pulse Ox Last 24 Hr 98.0 F-98.6 F 79-108 18-20 115-141/59-79 96-99 GENERAL: AOx3. NAD. cachectic and thin appearing, eating breakfast. good mood HEENT: NAD. b/l temporal wasting. PERRL, sclera anicteric, conjunctiva clear. MMM. LUNGS: CTAB. No accessory muscle use. HEART: RRR, normal S1 and S2 without murmur, audible click from valve. well healed sternal scar ABDOMEN: well-healed abdominal scar. Soft, NTND +BS, no guarding, no rebound, no masses. L groin has bandage, no swelling, tenderness, erythema or blood noted at the site. MUSCULOSKELETAL: wnl rom at shoulders, elbows, wrists. decr in b/l hips, knees and ankles. UPPER EXTREMITIES: 2+ radial pulses, warm, well-perfused. No cyanosis. No clubbing. LUE swelling noted w/ pitting edema > in hand and forearm. non tender and no erythema LOWER EXTREMITIES: RLE in dressing, right gangrenous 5th toe, overlying erythema on the dorsum of the right foot, gangrene appears to be advancing but slowly, unable to palpate R DP or PT pulses, faint left dp pulse. warm. ttp at R toes and at foot. NEUROLOGICAL: Cranial nerves II-XII intact. Normal speech. facial symmetry. power generalized weakness 4/5 SKIN: Warm, dry, normal turgor Laboratory Results - last 24 hr 11/21/17 11/21/17 11/21/17 17:05 20:05 20:15 WBC RBC Hgb Hct MCV MCH MCHC RDW Plt Count MPV PT with INR 14.90 H INR 1.32 H PTT (Actin FS) > 400.0 H POC Glucometer 332 11/21/17 11/22/17 11/22/17 23:16 06:41 08:10 WBC 5.9 RBC 2.32 L Hgb 7.0 L Hct 21.2 L D MCV 91.7 MCH 30.3 MCHC 33.0 RDW 16.4 H Plt Count 446 H MPV 8.1 PT with INR INR PTT (Actin FS) POC Glucometer 173 145 11/22/17 08:10 WBC RBC Hgb Hct MCV MCH MCHC RDW Plt Count MPV PT with INR INR PTT (Actin FS) > 400.0 H POC Glucometer Active Medications Generic Name Dose Route Start Last Admin Trade Name Freq PRN Reason Stop Dose Admin Acetaminophen 650 mg 11/21/17 09:41 Tylenol - PO Q4H PRN PAIN LEVEL 6-10 Ascorbic Acid 500 mg 11/21/17 10:00 11/22/17 09:04 Vitamin C - PO 500 mg DAILY GUANAKO Administration Atorvastatin Calcium 10 mg 11/21/17 22:00 11/21/17 22:24 Lipitor - PO 10 mg HS GUANAKO Administration Calcium Carbonate/Cholecalciferol 1 tab 11/21/17 10:00 11/22/17 09:05 Os-Matt 500+D - PO 1 tab DAILY GUANAKO Administration Cholecalciferol 2,000 unit 11/21/17 10:00 11/22/17 09:05 Vitamin D3 - PO 2,000 unit DAILY GUANAKO Administration Clopidogrel Bisulfate 75 mg 11/21/17 10:00 11/22/17 09:04 Plavix - PO 75 mg DAILY GUANAKO Administration Collagenase 1 applic 11/21/17 10:00 11/22/17 09:06 Santyl - TP 1 applic DAILY GUANAKO Administration Protocol Ferrous Sulfate 325 mg 11/21/17 10:00 11/22/17 09:05 Feosol - PO 325 mg DAILY GUANAKO Administration Gabapentin 300 mg 11/21/17 10:00 11/22/17 09:04 Neurontin - PO 300 mg BID GUANAKO Administration Heparin Sodium (Porcine) 1,000 unit 11/21/17 08:56 Heparin - IVPUSH PRN PRN Heparin Heparin Sodium (Porcine) 5,000 unit 11/21/17 08:56 Heparin - IVPUSH PRN PRN Heparin HEPARIN SOD,PORK IN 0.45% NACL 25,000 units in 500 mls @ 16 mls/hr 11/21/17 09 :00 08/04/18 00:00 Heparin-1/2ns 25,000 Units/500 IVPB 500 units/hr TITR GUANAKO 10 mls/hr Titration Protocol 800 UNITS/HR Sodium Chloride 1,000 mls @ 75 mls/hr 11/21/17 09:41 11/22/17 00:07 1/2 Normal Saline IV 75 mls/hr ASDIR GUANAKO Administration Vancomycin HCl 1 gm in 200 mls @ 133.333 mls/hr 11/21/17 13:00 11/21/17 15:18 Vancomycin 1 Gm Premix - IVPB 133.333 mls/hr DAILY@1300 GUANAKO Administration Protocol Piperacillin Sod/Tazobactam 50 mls @ 100 mls/hr 11/21/17 10:00 11/22/17 09:06 Sod 2.25 gm/ Dextrose IVPB 100 mls/hr Q8H-IV GUANAKO Administration Protocol Insulin Aspart 1 vial 11/21/17 11:00 11/22/17 06:42 Novolog Vial Sliding Scale - SQ Not Given ACHS [facility] Protocol Levetiracetam 500 mg 11/21/17 10:00 11/22/17 09:05 Keppra - PO 500 mg BID GUANAKO Administration Megestrol Acetate 400 mg 11/21/17 10:00 11/22/17 09:08 Megace Oral Suspension - PO 400 mg BID GUANAKO Administration Metoprolol Succinate 25 mg 11/21/17 10:00 11/22/17 09:05 Toprol Xl - PO 25 mg DAILY GUANAKO Administration Multivitamins/Minerals/Vitamin C 1 tab 11/21/17 10:00 11/22/17 09:05 Tab-A-Vit - PO 1 tab DAILY GUANAKO Administration Ranitidine HCl 150 mg 11/21/17 10:00 11/22/17 09:04 Zantac - PO 150 mg DAILY GUANAKO Administration Tramadol HCl 50 mg 11/21/17 17:03 11/21/17 17:42 Ultram - PO 50 mg Q6H PRN Administration PAIN LEVEL 6-10 ASSESSMENT/PLAN: 86 yr old woman with PMH of DM, Afib, open heart bypass (1991), gastrectomy ( 2012), lung cancer treated with chemotherapy + pneumothorax (08/2017), and multiple falls leading to R hip/femur fracture and subdural hematoma, brought in from SNF for right toe gangrene admitted for further evaluation and management. #right toe gangrene with cellulitis - Pt went to OR yesterday, premedications of solumedrol/Benadryl were given. vascular surgery unable to revascularize, will f/u w/ podiatry for possible BKA. Gangrene appears to be advancing slowly -podiatry(dr. castillo) and vasc(dr. call) -was premedicated with solumedrol/Benadryl in preperation for use of contrast intra-op. possible allergy to Iodine few years back. Received cortisone prior to surgery at [facility] a month ago -GI PPX - zantac -IVF 1/2NS - heparin drip, hold coumadin pending podiatry recs -vitamin K 10 mg and FFP given yesterday - CTA on hold. - wound care with santyl + dressing - c/w IV vanc 1gm /zosyn 3.375 q8hr started 11/18 -vanc trough for 11/22 at 12pm before 4th vanc dose - ID consult - Dr. Pitt - if possible obtain culture report from previous amputation at [facility] - continuous bedrest rest, fall risk precautions, will initiate PT post- surgical pending surgical recommendations - tylenol for pain control, uptitrate if further pain control needed -Podiatry recs, palliative care with dressing changes. Follow up for surgical intervention #LUE swelling - on hep gtt w/ elevated PTT so unlikely DVT. swelling noted w/ pitting edema in hand and forearm. non tender and no erythema -warm compresses and elevation L groin site bleed - currently not bleeding. has bandage, no swelling, tenderness, erythema or blood noted at the site. - continue to monitor -bandage dressing -H/H is downtrending, today was 7, we will Transfuse 1 unit PRBC and rpt CBC. #Severe Malnutrition - BMI 14. pt is cachetic w/ b/l temporal wasting on physical exam. pt eating breakfast today - megace 400mg po bid - continue supplements; ca, MVI, vitamins #Decubitis sacral ulcer -wound care -oob w/ assist as tolerated and change position in bed #DM - hold home januvia and levemir - NISS/BGM ACHS - continue gabapentin 300mg po BID - A1c ordered #Afib/mechanical aortic valve - INR goal 2.5-3.5, currently therapeutic, hold coumadin(1 mg daily) for surgery - when INR <2.5, initiate heparin drip - repeat labs coags in the AM #PAD/PVD - plavix 75mg po daily, continue daily - pt had recent stents #HTN - metoprolol succ 25mg po daily #Seizures - keppra 500mg po bid daily #HLD - zocor 20mg po HS #s/p gastrectomy - pepcid 20mg po daily #chronic anemia - ferrous sulfate 325mg po daily #DVT - warfarin held for surgery sharifa. Hep gtt started #FEN - 04/22 NS -dysphagia ordered as per [facility] records that's what the pt was eating. -replete phosph #Code status - adult without capacity with surrogate(daughter Melvina) - confirmed DNR/DNI, paperwork placed in chart. palliative consulted given pt's extensive co-morbidities. Visit type - Emergency Visit Emergency Visit: Yes ED Registration Date: 11/18/17 Care time: The patient presented to the Emergency Department on the above date and was hospitalized for further evaluation of their emergent condition. - New Patient This patient is new to me today: Yes Date on this admission: 11/22/17 - Critical Care Critical Care patient: No
[2017-11-22] MEDS: traMADol HCL 50 MG TABLET PO PRN ×2 (12:29→20:28)
--- NOTE | 2017-11-22 13:54 | PN ---
Teaching Attending Note Name of Resident: Angelito Aguilar ATTENDING PHYSICIAN STATEMENT I saw and evaluated the patient. I reviewed the resident's note and discussed the case with the resident. I agree with the resident's findings and plan as documented with exceptions below. SUBJECTIVE: Patient seen and examined. right foot pain better. left hand swelling noted by nursing, patient with no pain. OBJECTIVE: Vital Signs Period Temp Pulse Resp BP Sys/Yates Pulse Ox Last 24 Hr 98.0 F-98.6 F 89-108 18-20 115-141/59-74 96-96 Intake & Output 11/19/17 11/20/17 11/21/17 11/22/17 23:59 23:59 23:59 23:59 Intake Total 1110 1884 2134 1110 Output Total 50 Balance 1110 1884 2084 1110 Weight 76 lb General: sitting in bed in no acute distress Extremities: right 5th toe grangrene, extending in the dorsum of the foot, unchanged overlying erythema on the dorusm of the foot, unable to palpate right DP or PT pulses, left hand edema, non warm non tender Abdomen:Soft, NT, ND Active Medications Acetaminophen (Tylenol -) 650 mg PO Q4H PRN PRN Reason: PAIN LEVEL 6-10 Ascorbic Acid (Vitamin C -) 500 mg PO DAILY [facility] Last Admin: 11/22/17 09:04 Dose: 500 mg Atorvastatin Calcium (Lipitor -) 10 mg PO HS [facility] Last Admin: 11/21/17 22:24 Dose: 10 mg Calcium Carbonate/Cholecalciferol (Os-Matt 500+D -) 1 tab PO DAILY [facility] Last Admin: 11/22/17 09:05 Dose: 1 tab Cholecalciferol (Vitamin D3 -) 2,000 unit PO DAILY [facility] Last Admin: 11/22/17 09:05 Dose: 2,000 unit Clopidogrel Bisulfate (Plavix -) 75 mg PO DAILY [facility] Last Admin: 11/22/17 09:04 Dose: 75 mg Collagenase (Santyl -) 1 applic TP DAILY [facility]; Protocol Last Admin: 11/22/17 09:06 Dose: 1 applic Ferrous Sulfate (Feosol -) 325 mg PO DAILY [facility] Last Admin: 11/22/17 09:05 Dose: 325 mg Gabapentin (Neurontin -) 300 mg PO BID [facility] Last Admin: 11/22/17 09:04 Dose: 300 mg Heparin Sodium (Porcine) (Heparin -) 1,000 unit IVPUSH PRN PRN PRN Reason: Heparin Heparin Sodium (Porcine) (Heparin -) 5,000 unit IVPUSH PRN PRN PRN Reason: Heparin HEPARIN SOD,PORK IN 0.45% NACL (Heparin-1/2ns 25,000 Units/500) 25,000 units in 500 mls @ 16 mls/hr IVPB TITR [facility]; Protocol Last Titration: 11/22/17 00:00 Dose: 500 units/hr, 10 mls/hr Sodium Chloride (1/2 Normal Saline) 1,000 mls @ 75 mls/hr IV ASDIR [facility] Last Admin: 11/22/17 13:50 Dose: 75 mls/hr Vancomycin HCl (Vancomycin 1 Gm Premix -) 1 gm in 200 mls @ 133.333 mls/hr IVPB DAILY@1300 GUANAKO; Protocol Last Admin: 11/21/17 15:18 Dose: 133.333 mls/hr Piperacillin Sod/Tazobactam (Sod 2.25 gm/ Dextrose) 50 mls @ 100 mls/hr IVPB Q8H-IV [facility]; Protocol Last Admin: 11/22/17 09:06 Dose: 100 mls/hr Insulin Aspart (Novolog Vial Sliding Scale -) 1 vial SQ ACHS [facility]; Protocol Last Admin: 11/22/17 13:50 Dose: 2 units Levetiracetam (Keppra -) 500 mg PO BID [facility] Last Admin: 11/22/17 09:05 Dose: 500 mg Megestrol Acetate (Megace Oral Suspension -) 400 mg PO BID [facility] Last Admin: 11/22/17 09:08 Dose: 400 mg Metoprolol Succinate (Toprol Xl -) 25 mg PO DAILY [facility] Last Admin: 11/22/17 09:05 Dose: 25 mg Multivitamins/Minerals/Vitamin C (Tab-A-Vit -) 1 tab PO DAILY [facility] Last Admin: 11/22/17 09:05 Dose: 1 tab Ranitidine HCl (Zantac -) 150 mg PO DAILY [facility] Last Admin: 11/22/17 09:04 Dose: 150 mg Tramadol HCl (Ultram -) 50 mg PO Q6H PRN PRN Reason: PAIN LEVEL 6-10 Last Admin: 11/22/17 12:29 Dose: 50 mg Laboratory Results - last 24 hr 11/21/17 11/21/17 11/21/17 17:05 20:05 20:15 WBC RBC Hgb Hct MCV MCH MCHC RDW Plt Count MPV PT with INR 14.90 H INR 1.32 H PTT (Actin FS) > 400.0 H POC Glucometer 332 11/21/17 11/22/17 11/22/17 23:16 06:41 08:10 WBC 5.9 RBC 2.32 L Hgb 7.0 L Hct 21.2 L D MCV 91.7 MCH 30.3 MCHC 33.0 RDW 16.4 H Plt Count 446 H MPV 8.1 PT with INR INR PTT (Actin FS) POC Glucometer 173 145 11/22/17 11/22/17 08:10 12:19 WBC RBC Hgb Hct MCV MCH MCHC RDW Plt Count MPV PT with INR INR PTT (Actin FS) > 400.0 H POC Glucometer 176 Microbiology 11/18/17 12:35 Blood - Peripheral Venous Blood Culture - Preliminary NO GROWTH OBTAINED AFTER 96 HOURS, INCUBATION TO CONTINUE FOR 1 DAYS. 11/18/17 12:35 Blood - Peripheral Venous Blood Culture - Preliminary NO GROWTH OBTAINED AFTER 96 HOURS, INCUBATION TO CONTINUE FOR 1 DAYS. 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 -IDDM -HTN Plan: Transfuse 1 unit PRBC. vascular surgery input noted, unable to revascularize. heparin drip, hold coumadin pending podiatry recs. Podiatry input noted, palliative care with dressing changes. Follow up for surgical intervention, ?TMA vs BKA. ID input noted, Zosyn/vancomycin, monitor vanco levels. ISs, diabetic diet, blood sugars labile, hold off on standing coverage for ow. Continue metoprolol/keppra/statin/megestrol DVTPPX as above Dispo pending above . Code status DNR/DNI - confirmed with daughter and advance directives from NH. Overall prognosis guarded, palliative care input to address overall goals of care.
[2017-11-22] MEDS: VANCOMYCIN 1 GM PREMIX - 1 GM/200 ML BAG IVPB SCH (13:56)
--- NOTE | 2017-11-22 18:47 | PN ---
Progress Note (short form) - Note Progress Note: Patiet seen in bed. FUV right foot. +dry gangarene right forefoot toes 5&2 and mpj toes 3&4 are gangrenous demarcating, -drainage, -mal odor, +tender, +improved celultis to midfoot now, weak pulses b/l, +tender, wbc=5.9, Gangarene, Cellulitis PVD Patient having a transfusion. Will continue with palliative care at this time. TRUPTI Kramer change to daily betadine dressing. IVABX as per ID. will follow. no intervention at this time.
[2017-11-22] MEDS: ATORVASTATIN CA 10 MG TABLET (FP) PO SCH (21:46)
[2017-11-22] MEDS: HEPARIN SOD,PORK IN 0.45% NACL 25,000 UNITS/500 ML INFUS.BAG IVPB SCH (22:08)
[2017-11-23] MEDS: PIPERACILLIN/TAZOB 2.25 GM 2.25 GM in DEXTROSE 5%-WATER - 50 ML IVPB SCH ×3 (01:09→17:38)
[2017-11-23] MEDS: INSULIN SLIDING SCALE (NOVOLOG) 1 VIAL SQ SCH ×4 (05:59→22:50)
[2017-11-23] MEDS: traMADol HCL 50 MG TABLET PO PRN ×3 (06:50→22:33)
[2017-11-23 08:02] LABS: HEMATOCRIT 34.2 % (32.4-45.2); HEMOGLOBIN 11.6 GM/dL (10.7-15.3); MCH 29.8 pg (25.7-33.7); MCHC 33.9 g/dl (32.0-36.0); MEAN PLT VOLUME 8.4 fl (7.5-11.1); PLATELET COUNT 435 K/MM3 (134-434); RBC 3.89 M/mm3 (3.60-5.2); RDW 17.5 % (11.6-15.6); WHITE BLOOD COUNT 7.3 K/mm3 (4.0-10.0)
[2017-11-23 08:51] LABS: ALBUMIN 2.3 g/dl (3.4-5.0); ANION GAP 9 (8-16); BILIRUBIN,TOTAL 0.6 mg/dL (0.2-1.0); BLOOD UREA NITROGEN 5 mg/dL (7-18); CALCIUM 8.2 mg/dL (8.5-10.1); CHLORIDE 109 mmol/L (98-107); CO2 28 mmol/L (21-32); CREATININE 0.4 mg/dL (0.55-1.02); GLUCOSE,RANDOM 107 mg/dL (74-106); POTASSIUM 4.4 mmol/L (3.5-5.1); SGOT/AST 55 U/L (15-37); SGPT/ALT 41 U/L (12-78); SODIUM 146 mmol/L (136-145); TOT PROT 5.7 g/dl (6.4-8.2)
[2017-11-23 08:52] LABS: ALK PHOS 131 U/L (45-117)
--- NOTE | 2017-11-23 09:16 | PN ---
Physical Exam: SUBJECTIVE: Patient seen and examined, feels better, no foot pain unless touched , No other complaints. OBJECTIVE: Vital Signs Period Temp Pulse Resp BP Sys/Yates Pulse Ox Last 24 Hr 97.8 F-98.8 F 81-99 16-20 121-144/58-74 100 GENERAL: lying in bed in no acute distress Abdomen:soft, NT, NT, positive bowel sounds chest:decreased effort but no rales or wheezing Extremities: right 5th toe gangrene extending into proximal foot, right 2nd toe dusky coloration slowly progressing, Erythema tenderness over dorsum right foot , Left hand edema resolved. Laboratory Results - last 24 hr 11/20/17 11/21/17 11/22/17 07:00 10:26 08:10 WBC RBC Hgb Hct MCV MCH MCHC RDW Plt Count MPV PTT (Actin FS) > 400.0 H Sodium Potassium Chloride Carbon Dioxide Anion Gap BUN Creatinine Creat Clearance w eGFR POC Glucometer 205 Random Glucose Calcium Total Bilirubin AST ALT Alkaline Phosphatase Total Protein Albumin Stool Occult Blood Vancomycin Pre-Dose Blood Type B POSITIVE Antibody Screen Negative Crossmatch See Detail 11/22/17 11/22/17 11/22/17 12:19 12:25 14:30 WBC RBC Hgb Hct MCV MCH MCHC RDW Plt Count MPV PTT (Actin FS) 49.9 H Sodium Potassium Chloride Carbon Dioxide Anion Gap BUN Creatinine Creat Clearance w eGFR POC Glucometer 176 Random Glucose Calcium Total Bilirubin AST ALT Alkaline Phosphatase Total Protein Albumin Stool Occult Blood Vancomycin Pre-Dose 11.84 H Blood Type Antibody Screen Crossmatch 11/22/17 11/22/17 11/22/17 17:24 20:00 21:52 WBC RBC Hgb Hct MCV MCH MCHC RDW Plt Count MPV PTT (Actin FS) Sodium Potassium Chloride Carbon Dioxide Anion Gap BUN Creatinine Creat Clearance w eGFR POC Glucometer 231 61 Random Glucose Calcium Total Bilirubin AST ALT Alkaline Phosphatase Total Protein Albumin Stool Occult Blood Negative Vancomycin Pre-Dose Blood Type Antibody Screen Crossmatch 11/23/17 11/23/17 11/23/17 05:58 06:00 06:15 WBC 7.3 RBC 3.89 Hgb 11.6 Hct 34.2 D MCV 88.0 MCH 29.8 MCHC 33.9 RDW 17.5 H Plt Count 435 H MPV 8.4 PTT (Actin FS) Sodium 146 H Potassium 4.4 Chloride 109 H Carbon Dioxide 28 Anion Gap 9 BUN 5 L Creatinine 0.4 L Creat Clearance w eGFR > 60 POC Glucometer 102 Random Glucose 107 H Calcium 8.2 L Total Bilirubin 0.6 AST 55 H ALT 41 Alkaline Phosphatase 131 H D Total Protein 5.7 L Albumin 2.3 L Stool Occult Blood Vancomycin Pre-Dose Blood Type Antibody Screen Crossmatch 11/23/17 06:15 WBC RBC Hgb Hct MCV MCH MCHC RDW Plt Count MPV PTT (Actin FS) 23.7 L Sodium Potassium Chloride Carbon Dioxide Anion Gap BUN Creatinine Creat Clearance w eGFR POC Glucometer Random Glucose Calcium Total Bilirubin AST ALT Alkaline Phosphatase Total Protein Albumin Stool Occult Blood Vancomycin Pre-Dose Blood Type Antibody Screen Crossmatch Active Medications Generic Name Dose Route Start Last Admin Trade Name Freq PRN Reason Stop Dose Admin Acetaminophen 650 mg 11/21/17 09:41 Tylenol - PO Q4H PRN PAIN LEVEL 6-10 Ascorbic Acid 500 mg 11/21/17 10:00 11/22/17 09:04 Vitamin C - PO 500 mg DAILY [facility] Administration Atorvastatin Calcium 10 mg 11/21/17 22:00 11/22/17 21:46 Lipitor - PO 10 mg HS [facility] Administration Calcium Carbonate/Cholecalciferol 1 tab 11/21/17 10:00 11/22/17 09:05 Os-Matt 500+D - PO 1 tab DAILY [facility] Administration Cholecalciferol 2,000 unit 11/21/17 10:00 11/22/17 09:05 Vitamin D3 - PO 2,000 unit DAILY [facility] Administration Clopidogrel Bisulfate 75 mg 11/21/17 10:00 11/22/17 09:04 Plavix - PO 75 mg DAILY [facility] Administration Collagenase 1 applic 11/21/17 10:00 11/22/17 09:06 Santyl - TP 1 applic DAILY [facility] Administration Protocol Ferrous Sulfate 325 mg 11/21/17 10:00 11/22/17 09:05 Feosol - PO 325 mg DAILY [facility] Administration Gabapentin 300 mg 11/21/17 10:00 11/22/17 21:46 Neurontin - PO 300 mg BID [facility] Administration Heparin Sodium (Porcine) 1,000 unit 11/21/17 08:56 Heparin - IVPUSH PRN PRN Heparin Heparin Sodium (Porcine) 5,000 unit 11/21/17 08:56 Heparin - IVPUSH PRN PRN Heparin HEPARIN SOD,PORK IN 0.45% NACL 25,000 units in 500 mls @ 16 mls/hr 11/21/17 09 :00 11/22/17 22:08 Heparin-1/2ns 25,000 Units/500 IVPB 200 units/hr TITR [facility] 4 mls/hr Administration Protocol 800 UNITS/HR Vancomycin HCl 1 gm in 200 mls @ 133.333 mls/hr 11/21/17 13:00 11/22/17 13:56 Vancomycin 1 Gm Premix - IVPB 133.333 mls/hr DAILY@1300 [facility] Administration Protocol Piperacillin Sod/Tazobactam 50 mls @ 100 mls/hr 11/21/17 10:00 11/23/17 01:09 Sod 2.25 gm/ Dextrose IVPB 100 mls/hr Q8H-IV [facility] Administration Protocol Insulin Aspart 1 vial 11/21/17 11:00 11/23/17 05:59 Novolog Vial Sliding Scale - SQ Not Given ACHS [facility] Protocol Levetiracetam 500 mg 11/21/17 10:00 11/22/17 21:46 Keppra - PO 500 mg BID [facility] Administration Megestrol Acetate 400 mg 11/21/17 10:00 11/22/17 21:47 Megace Oral Suspension - PO 400 mg BID [facility] Administration Metoprolol Succinate 25 mg 11/21/17 10:00 11/22/17 09:05 Toprol Xl - PO 25 mg DAILY [facility] Administration Multivitamins/Minerals/Vitamin C 1 tab 11/21/17 10:00 11/22/17 09:05 Tab-A-Vit - PO 1 tab DAILY [facility] Administration Ranitidine HCl 150 mg 11/21/17 10:00 11/22/17 09:04 Zantac - PO 150 mg DAILY [facility] Administration Tramadol HCl 50 mg 11/21/17 17:03 11/23/17 06:50 Ultram - PO 50 mg Q6H PRN Administration PAIN LEVEL 6-10 Microbiology 11/18/17 12:35 Blood - Peripheral Venous Blood Culture - Preliminary NO GROWTH OBTAINED AFTER 96 HOURS, INCUBATION TO CONTINUE FOR 1 DAYS. 11/18/17 12:35 Blood - Peripheral Venous Blood Culture - Preliminary NO GROWTH OBTAINED AFTER 96 HOURS, INCUBATION TO CONTINUE FOR 1 DAYS. 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 -IDDM -HTN -Hypernatremia/hyperchloremia, suspect partly iatrogenic from IVF. Plan: s/p 1 unit PRBC, inappropriate rise, anticipate drop before plateaues. No further bleed. Monitor h/h. vascular surgery input noted, unable to revascularize. heparin drip, hold coumadin pending podiatry recs. Podiatry input noted, palliative care with dressing changes. Follow up for surgical intervention, ?TMA vs BKA. ID input noted, Zosyn/vancomycin, vanco levels therapeutic. ISs, diabetic diet, blood sugars labile, hold off on standing coverage for ow. Continue metoprolol/keppra/statin/megestrol DC IVF, encourage oral intake. Address D5W drip based on blood sugars. DVTPPX as above Dispo pending above . Code status DNR/DNI - confirmed with daughter and advance directives from [place]. Overall prognosis guarded, palliative care input to address overall goals of care. Plan discussed with nursing, all questions answered. Visit type - Emergency Visit Emergency Visit: Yes ED Registration Date: 11/18/17 Care time: The patient presented to the Emergency Department on the above date and was hospitalized for further evaluation of their emergent condition. - New Patient This patient is new to me today: No - Critical Care Critical Care patient: No - Discharge Referral Referred to [facility] Med P.C.: No
[2017-11-23] MEDS ORDERED: PT OWN MED DRAWER 7, Y5N ONE (10:05)
[2017-11-23] MEDS ORDERED: PIPERACILLIN/TAZOBACTAM 2.25 GM VIAL IVPB ONE ×2 (10:05→17:26)
[2017-11-23] MEDS ORDERED: DEXTROSE 5%-WATER - 50 ML IVPB ONE ×2 (10:06→17:26)
[2017-11-23] MEDS: levETIRAcetam 500 MG TABLET (FP) PO SCH ×2 (10:08→22:33)
[2017-11-23] MEDS: CALCIUM 500MG/VIT-D 200 UNITS COMBO TABLET (FP) PO SCH (10:08)
[2017-11-23] MEDS: CHOLECALCIFEROL (VITAMIN D3) 1,000 UNIT TABLET (FP) PO SCH (10:08)
[2017-11-23] MEDS: GABAPENTIN 300 MG CAPSULE (FP) PO SCH ×2 (10:08→22:33)
[2017-11-23] MEDS: ASCORBIC ACID 500 MG TABLET (FP) PO SCH (10:08)
[2017-11-23] MEDS: FERROUS SO4 325 MG TABLET (FP) PO SCH (10:08)
[2017-11-23] MEDS: RANITIDINE HCL 150 MG TABLET (FP) PO SCH (10:09)
[2017-11-23] MEDS: COLLAGENASE CLOSTRIDIUM HIST. 30 GRAMS TUBE TP SCH (10:09)
[2017-11-23] MEDS: CLOPIDOGREL BISULFATE 75 MG TABLET (FP) PO SCH (10:09)
[2017-11-23] MEDS: metoPROLOL SUCCINATE 25 MG TAB.SR.24H (FP) PO SCH (10:09)
[2017-11-23] MEDS: MULTIVITAMINS (DAILY MVI) TABLET (FP) PO SCH (10:09)
[2017-11-23] MEDS: HEPARIN SOD,PORK IN 0.45% NACL 25,000 UNITS/500 ML INFUS.BAG IVPB SCH ×2 (10:14→22:34)
--- NOTE | 2017-11-23 11:30 | PN ---
Progress Note, Physician History of Present Illness: Awake, alert Seated in bed C/O R foot pain Afebrile WBC WNL BC no growth - Current Medication List Current Medications: Active Medications Acetaminophen (Tylenol -) 650 mg PO Q4H PRN PRN Reason: PAIN LEVEL 6-10 Ascorbic Acid (Vitamin C -) 500 mg PO DAILY [facility] Last Admin: 11/23/17 10:08 Dose: 500 mg Atorvastatin Calcium (Lipitor -) 10 mg PO HS [facility] Last Admin: 11/22/17 21:46 Dose: 10 mg Calcium Carbonate/Cholecalciferol (Os-Matt 500+D -) 1 tab PO DAILY [facility] Last Admin: 11/23/17 10:08 Dose: 1 tab Cholecalciferol (Vitamin D3 -) 2,000 unit PO DAILY [facility] Last Admin: 11/23/17 10:08 Dose: 2,000 unit Clopidogrel Bisulfate (Plavix -) 75 mg PO DAILY [facility] Last Admin: 11/23/17 10:09 Dose: 75 mg Collagenase (Santyl -) 1 applic TP DAILY [facility]; Protocol Last Admin: 11/23/17 10:09 Dose: Not Given Ferrous Sulfate (Feosol -) 325 mg PO DAILY [facility] Last Admin: 11/23/17 10:08 Dose: 325 mg Gabapentin (Neurontin -) 300 mg PO BID [facility] Last Admin: 11/23/17 10:08 Dose: 300 mg Heparin Sodium (Porcine) (Heparin -) 1,000 unit IVPUSH PRN PRN PRN Reason: Heparin Heparin Sodium (Porcine) (Heparin -) 5,000 unit IVPUSH PRN PRN PRN Reason: Heparin HEPARIN SOD,PORK IN 0.45% NACL (Heparin-1/2ns 25,000 Units/500) 25,000 units in 500 mls @ 16 mls/hr IVPB TITR [facility]; Protocol Last Admin: 11/23/17 10:14 Dose: 350 units/hr, 7 mls/hr Vancomycin HCl (Vancomycin 1 Gm Premix -) 1 gm in 200 mls @ 133.333 mls/hr IVPB DAILY@1300 [facility]; Protocol Last Admin: 11/22/17 13:56 Dose: 133.333 mls/hr Piperacillin Sod/Tazobactam (Sod 2.25 gm/ Dextrose) 50 mls @ 100 mls/hr IVPB Q8H-IV [facility]; Protocol Last Admin: 11/23/17 10:08 Dose: 100 mls/hr Insulin Aspart (Novolog Vial Sliding Scale -) 1 vial SQ ACHS [facility]; Protocol Last Admin: 11/23/17 05:59 Dose: Not Given Levetiracetam (Keppra -) 500 mg PO BID [facility] Last Admin: 11/23/17 10:08 Dose: 500 mg Megestrol Acetate (Megace Oral Suspension -) 400 mg PO BID [facility] Last Admin: 11/22/17 21:47 Dose: 400 mg Metoprolol Succinate (Toprol Xl -) 25 mg PO DAILY [facility] Last Admin: 11/23/17 10:09 Dose: 25 mg Multivitamins/Minerals/Vitamin C (Tab-A-Vit -) 1 tab PO DAILY [facility] Last Admin: 11/23/17 10:09 Dose: 1 tab Ranitidine HCl (Zantac -) 150 mg PO DAILY [facility] Last Admin: 11/23/17 10:09 Dose: 150 mg Tramadol HCl (Ultram -) 50 mg PO Q6H PRN PRN Reason: PAIN LEVEL 6-10 Last Admin: 11/23/17 06:50 Dose: 50 mg - Objective Vital Signs: Vital Signs Temperature 98.2 F 11/23/17 06:00 Pulse Rate 87 11/23/17 06:00 Respiratory Rate 20 11/23/17 06:00 Blood Pressure 144/73 11/23/17 06:00 O2 Sat by Pulse Oximetry (%) 100 11/22/17 20:36 Constitutional: Yes: No Distress, Cachectic Eyes: Yes: Conjunctiva Clear Cardiovascular: Yes: Regular Rate and Rhythm, Murmur, S1, S2 Respiratory: Yes: CTA Bilaterally Gastrointestinal: Yes: Normal Bowel Sounds, Soft. No: Tenderness Extremities: Yes: Other (+ dry gangrene, toes R foot. Hyperemia without warmth dorsum R foot) Labs: CBC, BMP 11/23/17 06:15 11/23/17 06:00 INR, PTT INR 1.32 (0.83-1.09) H 11/21/17 20:15 Assessment/Plan Gangrene R foot Ischemia v. cellulitis R foot Continue zosyn D/C Vancomycin. Switch to po Augmentin next 24h
[2017-11-23] MEDS ORDERED: INSULIN (NOVOLOG) ASPART 100 UNITS/ML 10ML VIAL ONE (11:59)
[2017-11-23] MEDS: HEPARIN NA (PORCINE) 5,000 UNITS/ML 1ML VIAL IVPUSH PRN ×2 (12:06→22:33)
[2017-11-23] MEDS: VANCOMYCIN 1 GM PREMIX - 1 GM/200 ML BAG IVPB SCH (14:25)
[2017-11-23] MEDS: MEGESTROL ACETATE 400 MG/10 ML UNIT DOSE CUP PO SCH ×2 (14:25→22:35)
[2017-11-23] MEDS: ATORVASTATIN CA 10 MG TABLET (FP) PO SCH (22:34)
[2017-11-24] MEDS ORDERED: PIPERACILLIN/TAZOBACTAM 2.25 GM VIAL IVPB ONE ×2 (01:07→09:20)
[2017-11-24] MEDS ORDERED: DEXTROSE 5%-WATER - 50 ML IVPB ONE ×2 (01:08→09:20)
[2017-11-24] MEDS: PIPERACILLIN/TAZOB 2.25 GM 2.25 GM in DEXTROSE 5%-WATER - 50 ML IVPB SCH ×2 (01:30→09:26)
[2017-11-24] MEDS: INSULIN SLIDING SCALE (NOVOLOG) 1 VIAL SQ SCH ×4 (06:10→21:52)
[2017-11-24] MEDS ORDERED: PT OWN MED DRAWER 7, Y5N ONE ×3 (06:55→18:14)
[2017-11-24 08:09] LABS: BASO % 0.2 % (0-2.0); EOS % 0.8 % (0-4.5); HEMATOCRIT 31.5 % (32.4-45.2); HEMOGLOBIN 10.8 GM/dL (10.7-15.3); MCH 30.1 pg (25.7-33.7); MCHC 34.1 g/dl (32.0-36.0); MEAN CELL VOLUME 88.3 fl (80-96); MEAN PLT VOLUME 8.3 fl (7.5-11.1); PLATELET COUNT 397 K/MM3 (134-434); RBC 3.57 M/mm3 (3.60-5.2); RDW 17.4 % (11.6-15.6); WHITE BLOOD COUNT 7.2 K/mm3 (4.0-10.0)
--- NOTE | 2017-11-24 08:16 | PN ---
Teaching Attending Note Name of Resident: Angelito Aguilar ATTENDING PHYSICIAN STATEMENT I saw and evaluated the patient. I reviewed the resident's note and discussed the case with the resident. I agree with the resident's findings and plan as documented with exceptions below. SUBJECTIVE: Patient seen and examined. right foot pain when touched. No new complaints. OBJECTIVE: Vital Signs Period Temp Pulse Resp BP Sys/Yates Pulse Ox Last 24 Hr 97.9 F-99.8 F 87-101 18-20 110-149/62-79 98-100 Intake & Output 11/21/17 11/22/17 11/23/17 11/24/17 23:59 23:59 23:59 23:59 Intake Total 2134 3320 2696 95 Output Total 50 Balance 2084 3320 2696 95 General: lying in bed in no acute distress Chest: decreased effort Abdomen:soft, NT,ND Extremities: right foot with 5th necrotic toe, Right 2nd toe progressive gangrene, unchanged gangrene at base of right fifth toe, unchanged warmth/ tenderness over the dorsum of the foot, unable to palpate DP/PT pulses Active Medications Acetaminophen (Tylenol -) 650 mg PO Q4H PRN PRN Reason: PAIN LEVEL 6-10 Last Admin: 11/24/17 01:39 Dose: 650 mg Ascorbic Acid (Vitamin C -) 500 mg PO DAILY [facility] Last Admin: 11/24/17 09:26 Dose: 500 mg Atorvastatin Calcium (Lipitor -) 10 mg PO HS [facility] Last Admin: 11/23/17 22:34 Dose: 10 mg Calcium Carbonate/Cholecalciferol (Os-Matt 500+D -) 1 tab PO DAILY [facility] Last Admin: 11/24/17 09:26 Dose: 1 tab Cholecalciferol (Vitamin D3 -) 2,000 unit PO DAILY [facility] Last Admin: 11/24/17 09:27 Dose: 2,000 unit Clopidogrel Bisulfate (Plavix -) 75 mg PO DAILY [facility] Last Admin: 11/24/17 09:27 Dose: 75 mg Collagenase (Santyl -) 1 applic TP DAILY [facility]; Protocol Last Admin: 11/24/17 09:29 Dose: Not Given Ferrous Sulfate (Feosol -) 325 mg PO DAILY [facility] Last Admin: 11/24/17 09:26 Dose: 325 mg Gabapentin (Neurontin -) 300 mg PO BID [facility] Last Admin: 11/24/17 09:27 Dose: 300 mg Heparin Sodium (Porcine) (Heparin -) 1,000 unit IVPUSH PRN PRN PRN Reason: Heparin Heparin Sodium (Porcine) (Heparin -) 5,000 unit IVPUSH PRN PRN PRN Reason: Heparin Last Admin: 11/23/17 22:33 Dose: 5,000 unit Vancomycin HCl (Vancomycin 1 Gm Premix -) 1 gm in 200 mls @ 133.333 mls/hr IVPB DAILY@1300 [facility]; Protocol Last Admin: 11/24/17 14:52 Dose: 133.333 mls/hr Piperacillin Sod/Tazobactam (Sod 2.25 gm/ Dextrose) 50 mls @ 100 mls/hr IVPB Q8H-IV [facility]; Protocol Last Admin: 11/24/17 09:26 Dose: 100 mls/hr HEPARIN SOD,PORK IN 0.45% NACL (Heparin-1/2ns 25,000 Units/500) 25,000 units in 500 mls @ 16 mls/hr IVPB TITR [facility]; Protocol Last Admin: 11/24/17 14:44 Dose: 300 units/hr, 6 mls/hr Insulin Aspart (Novolog Vial Sliding Scale -) 1 vial SQ ACHS [facility]; Protocol Last Admin: 11/24/17 15:01 Dose: 8 units Levetiracetam (Keppra -) 500 mg PO BID [facility] Last Admin: 11/24/17 09:27 Dose: 500 mg Megestrol Acetate (Megace Oral Suspension -) 400 mg PO BID [facility] Last Admin: 11/23/17 22:35 Dose: 400 mg Metoprolol Succinate (Toprol Xl -) 25 mg PO DAILY [facility] Last Admin: 11/24/17 09:27 Dose: 25 mg Multivitamins/Minerals/Vitamin C (Tab-A-Vit -) 1 tab PO DAILY [facility] Last Admin: 11/24/17 09:27 Dose: 1 tab Ranitidine HCl (Zantac -) 150 mg PO DAILY [facility] Last Admin: 11/24/17 09:27 Dose: 150 mg Tramadol HCl (Ultram -) 50 mg PO Q6H PRN PRN Reason: PAIN LEVEL 6-10 Last Admin: 11/24/17 09:27 Dose: 50 mg Laboratory Results - last 24 hr 11/23/17 11/23/17 11/23/17 17:37 21:00 22:44 WBC RBC Hgb Hct MCV MCH MCHC RDW Plt Count MPV Absolute Neuts (auto) Neutrophils % Lymphocytes % Monocytes % Eosinophils % Basophils % Nucleated RBC % PTT (Actin FS) 38.3 H Sodium Potassium Chloride Carbon Dioxide Anion Gap BUN Creatinine Creat Clearance w eGFR POC Glucometer 271 74 Random Glucose Calcium Phosphorus Magnesium 11/24/17 11/24/17 11/24/17 05:18 07:00 07:00 WBC 7.2 RBC 3.57 L Hgb 10.8 Hct 31.5 L MCV 88.3 MCH 30.1 MCHC 34.1 RDW 17.4 H Plt Count 397 MPV 8.3 Absolute Neuts (auto) 6.2 Neutrophils % 87.0 H Lymphocytes % 5.0 L D Monocytes % 7.0 D Eosinophils % 0.8 D Basophils % 0.2 Nucleated RBC % 0 PTT (Actin FS) 60.2 H Sodium Potassium Chloride Carbon Dioxide Anion Gap BUN Creatinine Creat Clearance w eGFR POC Glucometer 107 Random Glucose Calcium Phosphorus Magnesium 11/24/17 11/24/17 07:00 15:00 WBC RBC Hgb Hct MCV MCH MCHC RDW Plt Count MPV Absolute Neuts (auto) Neutrophils % Lymphocytes % Monocytes % Eosinophils % Basophils % Nucleated RBC % PTT (Actin FS) Sodium 143 Potassium 4.0 Chloride 109 H Carbon Dioxide 30 Anion Gap 4 L BUN 6 L Creatinine 0.4 L Creat Clearance w eGFR > 60 POC Glucometer 320 Random Glucose 103 Calcium 8.1 L Phosphorus 2.8 Magnesium 2.0 Microbiology 11/18/17 12:35 Blood - Peripheral Venous Blood Culture - Final NO GROWTH AFTER 5 DAYS INCUBATION 11/18/17 12:35 Blood - Peripheral Venous Blood Culture - Final NO GROWTH AFTER 5 DAYS INCUBATION 11/18/17 12:27 Urine - Urine - Catheterized Urine Culture - Final NO GROWTH OBTAINED ASSESSMENT AND PLAN: 86 yof with extensive PMHx, recent RLE angiogram/?graft/Stent placement/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 -IDDM -HTN -Hypernatremia/hyperchloremia, suspect partly iatrogenic from IVF. Plan: Vascular surgery input noted, unable to revascularize. heparin drip, hold coumadin pending podiatry recs. Podiatry input noted, palliative care with dressing changes. Follow up for surgical intervention, ?TMA vs BKA. Foot ischemia seems to be progressing with unchanged pain and tenderness. ID input noted, Zosyn/vancomycin, vanco levels therapeutic. Will discuss with ID for broad spectum abx till podiatry plan in place. s/p 1 unit PRBC,h/h stable. No further bleed. Monitor h/h. ISs, diabetic diet, blood sugars labile, hold off on standing coverage for ow. Continue metoprolol/keppra/statin/megestrol Off IVF, encourage oral intake. DVTPPX as above Dispo pending above . Code status DNR/DNI - confirmed with daughter and advance directives from [place]. Overall prognosis guarded, palliative care input to address overall goals of care. Plan discussed with nursing, all questions answered.
[2017-11-24 08:49] LABS: ANION GAP 4 (8-16); BLOOD UREA NITROGEN 6 mg/dL (7-18); CALCIUM 8.1 mg/dL (8.5-10.1); CHLORIDE 109 mmol/L (98-107); CO2 30 mmol/L (21-32); CREATININE 0.4 mg/dL (0.55-1.02); GLUCOSE,RANDOM 103 mg/dL (74-106); PHOSPHOROUS 2.8 mg/dL (2.5-4.9); SODIUM 143 mmol/L (136-145)
--- NOTE | 2017-11-24 09:04 | PN ---
Physical Exam: SUBJECTIVE: Patient seen and examined at bed side. No acute events overnight. No complaints and denies any fevers, chills, n/V/D, weakness, confusion, urinary sxs. On hep gtt OBJECTIVE: Vital Signs Period Temp Pulse Resp BP Sys/Yates Pulse Ox Last 24 Hr 97.9 F-99.8 F 87-101 18-20 110-149/62-79 98 GENERAL: AOx3. NAD. cachectic and thin appearing HEENT: NAD. b/l temporal wasting. PERRL, sclera anicteric, conjunctiva clear. MMM. LUNGS: CTAB. No accessory muscle use. HEART: RRR, normal S1 and S2 without murmur, audible click from valve. well healed sternal scar ABDOMEN: well-healed abdominal scar. Soft, NTND +BS, no guarding, no rebound, no masses. L groin has bandage, no swelling, tenderness, erythema or blood noted at the site. MUSCULOSKELETAL: wnl rom at shoulders, elbows, wrists. decr in b/l hips, knees and ankles. UPPER EXTREMITIES: 2+ radial pulses, warm, well-perfused. No cyanosis. No clubbing. LUE swelling improved LOWER EXTREMITIES: RLE in dressing, right gangrenous 5th toe, overlying erythema on the dorsum of the right foot, gangrene appears to be advancing but slowly, unable to palpate R DP or PT pulses, faint left dp pulse. warm. ttp at R toes and at foot. NEUROLOGICAL: Cranial nerves II-XII intact. Normal speech. facial symmetry. power generalized weakness 4/5 SKIN: Warm, dry, normal turgor Laboratory Results - last 24 hr 11/23/17 11/23/17 11/23/17 11:40 12:30 17:37 WBC RBC Hgb Hct MCV MCH MCHC RDW Plt Count MPV Absolute Neuts (auto) Neutrophils % Lymphocytes % Monocytes % Eosinophils % Basophils % Nucleated RBC % PTT (Actin FS) > 400.0 H Sodium Potassium Chloride Carbon Dioxide Anion Gap BUN Creatinine Creat Clearance w eGFR POC Glucometer 192 271 Random Glucose Calcium Phosphorus Magnesium 11/23/17 11/23/17 11/24/17 21:00 22:44 05:18 WBC RBC Hgb Hct MCV MCH MCHC RDW Plt Count MPV Absolute Neuts (auto) Neutrophils % Lymphocytes % Monocytes % Eosinophils % Basophils % Nucleated RBC % PTT (Actin FS) 38.3 H Sodium Potassium Chloride Carbon Dioxide Anion Gap BUN Creatinine Creat Clearance w eGFR POC Glucometer 74 107 Random Glucose Calcium Phosphorus Magnesium 11/24/17 11/24/17 11/24/17 07:00 07:00 07:00 WBC 7.2 RBC 3.57 L Hgb 10.8 Hct 31.5 L MCV 88.3 MCH 30.1 MCHC 34.1 RDW 17.4 H Plt Count 397 MPV 8.3 Absolute Neuts (auto) 6.2 Neutrophils % 87.0 H Lymphocytes % 5.0 L D Monocytes % 7.0 D Eosinophils % 0.8 D Basophils % 0.2 Nucleated RBC % 0 PTT (Actin FS) 60.2 H Sodium 143 Potassium 4.0 Chloride 109 H Carbon Dioxide 30 Anion Gap 4 L BUN 6 L Creatinine 0.4 L Creat Clearance w eGFR > 60 POC Glucometer Random Glucose 103 Calcium 8.1 L Phosphorus 2.8 Magnesium 2.0 Active Medications Generic Name Dose Route Start Last Admin Trade Name Zulema PRN Reason Stop Dose Admin Acetaminophen 650 mg 11/21/17 09:41 11/24/17 01:39 Tylenol - PO 650 mg Q4H PRN Administration PAIN LEVEL 6-10 Ascorbic Acid 500 mg 11/21/17 10:00 11/23/17 10:08 Vitamin C - PO 500 mg DAILY GUANAKO Administration Atorvastatin Calcium 10 mg 11/21/17 22:00 11/23/17 22:34 Lipitor - PO 10 mg HS GUANAKO Administration Calcium Carbonate/Cholecalciferol 1 tab 11/21/17 10:00 11/23/17 10:08 Os-Matt 500+D - PO 1 tab DAILY GUANAKO Administration Cholecalciferol 2,000 unit 11/21/17 10:00 11/23/17 10:08 Vitamin D3 - PO 2,000 unit DAILY GUANAKO Administration Clopidogrel Bisulfate 75 mg 11/21/17 10:00 11/23/17 10:09 Plavix - PO 75 mg DAILY GUANAKO Administration Collagenase 1 applic 11/21/17 10:00 11/23/17 10:09 Santyl - TP Not Given DAILY GUANAKO Protocol Ferrous Sulfate 325 mg 11/21/17 10:00 11/23/17 10:08 Feosol - PO 325 mg DAILY GUANAKO Administration Gabapentin 300 mg 11/21/17 10:00 11/23/17 22:33 Neurontin - PO 300 mg BID GUANAKO Administration Heparin Sodium (Porcine) 1,000 unit 11/21/17 08:56 Heparin - IVPUSH PRN PRN Heparin Heparin Sodium (Porcine) 5,000 unit 11/21/17 08:56 11/23/17 22:33 Heparin - IVPUSH 5,000 unit PRN PRN Administration Heparin Vancomycin HCl 1 gm in 200 mls @ 133.333 mls/hr 11/21/17 13:00 11/23/17 14:25 Vancomycin 1 Gm Premix - IVPB 133.333 mls/hr DAILY@1300 [facility] Administration Protocol Piperacillin Sod/Tazobactam 50 mls @ 100 mls/hr 11/21/17 10:00 11/24/17 01:30 Sod 2.25 gm/ Dextrose IVPB 100 mls/hr Q8H-IV GUANAKO Administration Protocol HEPARIN SOD,PORK IN 0.45% NACL 25,000 units in 500 mls @ 16 mls/hr 11/23/17 14 :00 11/23/17 22:34 Heparin-1/2ns 25,000 Units/500 IVPB 300 units/hr TITR GUANAKO 6 mls/hr Administration Protocol 800 UNITS/HR Insulin Aspart 1 vial 11/21/17 11:00 11/24/17 06:10 Novolog Vial Sliding Scale - SQ Not Given ACHS [facility] Protocol Levetiracetam 500 mg 11/21/17 10:00 11/23/17 22:33 Keppra - PO 500 mg BID GUANAKO Administration Megestrol Acetate 400 mg 11/21/17 10:00 11/23/17 22:35 Megace Oral Suspension - PO 400 mg BID [facility] Administration Metoprolol Succinate 25 mg 11/21/17 10:00 11/23/17 10:09 Toprol Xl - PO 25 mg DAILY GUANAKO Administration Multivitamins/Minerals/Vitamin C 1 tab 11/21/17 10:00 11/23/17 10:09 Tab-A-Vit - PO 1 tab DAILY [facility] Administration Ranitidine HCl 150 mg 11/21/17 10:00 11/23/17 10:09 Zantac - PO 150 mg DAILY GUANAKO Administration Tramadol HCl 50 mg 11/21/17 17:03 11/23/17 22:33 Ultram - PO 50 mg Q6H PRN Administration PAIN LEVEL 6-10 ASSESSMENT/PLAN: 86 yr old woman with PMH of DM, Afib, open heart bypass (1991), gastrectomy ( 2012), lung cancer treated with chemotherapy + pneumothorax (08/2017), and multiple falls leading to R hip/femur fracture and subdural hematoma, brought in from SNF for right toe gangrene admitted for further evaluation and management. #right toe gangrene with cellulitis - vascular surgery unable to revascularize, will f/u w/ podiatry for possible BKA. Today Gangrene appears to be advancing slowly -Need to f/u w/ dr. castillo regarding further management of the foot -podiatry(dr. castillo) and vasc(dr. call) -was premedicated with solumedrol/Benadryl in preperation for use of contrast intra-op 11/21/17. possible allergy to Iodine few years back. Received cortisone prior to surgery at [facility] a month ago -GI PPX - zantac -IVF 1/2NS - heparin drip, hold coumadin pending podiatry recs -vitamin K 10 mg and FFP given yesterday - CTA on hold. - wound care with santyl + dressing - c/w IV vanc 1gm /zosyn 3.375 q8hr started 11/18 -vanco levels therapeutic 11/22 - ID consult - Dr. Pitt - if possible obtain culture report from previous amputation at [facility] - continuous bedrest rest, fall risk precautions, will initiate PT post- surgical pending surgical recommendations - tylenol/tramadol for pain control, uptitrate if further pain control needed -Podiatry recs, palliative care with dressing changes. Follow up for surgical intervention #LUE swelling - resolved -on hep gtt w/ elevated PTT so unlikely DVT. swelling was noted w/ pitting edema in hand and forearm. non tender and no erythema -warm compresses and elevation L groin site bleed - currently not bleeding. has bandage, no swelling, tenderness, erythema or blood noted at the site. - continue to monitor -bandage dressing -H/H is stable at 10.8, 7...11.6...10.8, s/p 1 unit PRBC 11/22/17 #Severe Malnutrition - BMI 14. pt is cachetic w/ b/l temporal wasting on physical exam. pt eating breakfast today - megace 400mg po bid - continue supplements; ca, MVI, vitamins #Decubitis sacral ulcer -wound care -oob w/ assist as tolerated and change position in bed #DM - hold home januvia and levemir - NISS/BGM ACHS - continue gabapentin 300mg po BID - A1c ordered #Afib/mechanical aortic valve - INR goal 2.5-3.5, currently therapeutic, hold coumadin(1 mg daily) for surgery - when INR <2.5, initiate heparin drip - repeat labs coags in the AM #PAD/PVD - plavix 75mg po daily, continue daily - pt had recent stents #HTN - metoprolol succ 25mg po daily #Seizures - keppra 500mg po bid daily #HLD - zocor 20mg po HS #s/p gastrectomy - pepcid 20mg po daily #chronic anemia - ferrous sulfate 325mg po daily #DVT - warfarin held for surgery sharifa. Hep gtt started #FEN - Off IVF, encourage oral intake. -dysphagia ordered as per senior living records that's what the pt was eating. -replete phosph prn #Code status - -Code status DNR/DNI - confirmed with daughter and advance directives from NH. Overall prognosis guarded, palliative care input to address overall goals of care. . Visit type - Emergency Visit Emergency Visit: Yes ED Registration Date: 11/18/17 Care time: The patient presented to the Emergency Department on the above date and was hospitalized for further evaluation of their emergent condition. - New Patient This patient is new to me today: Yes Date on this admission: 11/24/17 - Critical Care Critical Care patient: No
[2017-11-24] MEDS: FERROUS SO4 325 MG TABLET (FP) PO SCH (09:26)
[2017-11-24] MEDS: ASCORBIC ACID 500 MG TABLET (FP) PO SCH (09:26)
[2017-11-24] MEDS: CALCIUM 500MG/VIT-D 200 UNITS COMBO TABLET (FP) PO SCH (09:26)
[2017-11-24] MEDS: CLOPIDOGREL BISULFATE 75 MG TABLET (FP) PO SCH (09:27)
[2017-11-24] MEDS: RANITIDINE HCL 150 MG TABLET (FP) PO SCH (09:27)
[2017-11-24] MEDS: traMADol HCL 50 MG TABLET PO PRN ×2 (09:27→21:54)
[2017-11-24] MEDS: MULTIVITAMINS (DAILY MVI) TABLET (FP) PO SCH (09:27)
[2017-11-24] MEDS: metoPROLOL SUCCINATE 25 MG TAB.SR.24H (FP) PO SCH (09:27)
[2017-11-24] MEDS: CHOLECALCIFEROL (VITAMIN D3) 1,000 UNIT TABLET (FP) PO SCH (09:27)
[2017-11-24] MEDS: GABAPENTIN 300 MG CAPSULE (FP) PO SCH ×2 (09:27→21:44)
[2017-11-24] MEDS: levETIRAcetam 500 MG TABLET (FP) PO SCH ×2 (09:27→21:43)
[2017-11-24] MEDS: COLLAGENASE CLOSTRIDIUM HIST. 30 GRAMS TUBE TP SCH (09:29)
[2017-11-24] MEDS: HEPARIN SOD,PORK IN 0.45% NACL 25,000 UNITS/500 ML INFUS.BAG IVPB SCH (14:44)
[2017-11-24] MEDS ORDERED: INSULIN (NOVOLOG) ASPART 100 UNITS/ML 10ML VIAL ONE ×2 (14:50→21:49)
[2017-11-24] MEDS: VANCOMYCIN 1 GM PREMIX - 1 GM/200 ML BAG IVPB SCH (14:52)
[2017-11-24] MEDS: MEGESTROL ACETATE 400 MG/10 ML UNIT DOSE CUP PO SCH ×2 (18:25→22:26)
--- NOTE | 2017-11-24 19:40 | PN ---
Progress Note (short form) - Note Progress Note: Patiet seen in bed. FUV right foot. +unchanged wound right foot, -drainage, -mal odor, +tender, weak pulses b/l, + tender, wbc=7.2 Gangarene, Cellulitis PVD Will continue with palliative care at this time. TRUPTI Kramer change to daily betadine dressing. IVABX as per ID. will follow. no intervention at this time.
[2017-11-24] MEDS: ATORVASTATIN CA 10 MG TABLET (FP) PO SCH (21:46)
[2017-11-25] MEDS ORDERED: DEXTROSE 5%-WATER - 50 ML IVPB ONE ×3 (00:21→17:12)
[2017-11-25] MEDS ORDERED: PIPERACILLIN/TAZOBACTAM 2.25 GM VIAL IVPB ONE ×3 (00:21→17:12)
[2017-11-25] MEDS: PIPERACILLIN/TAZOB 2.25 GM 2.25 GM in DEXTROSE 5%-WATER - 50 ML IVPB SCH ×4 (02:20→17:16)
[2017-11-25] MEDS: INSULIN SLIDING SCALE (NOVOLOG) 1 VIAL SQ SCH ×4 (06:03→22:42)
[2017-11-25 08:57] LABS: BASO % 0.3 % (0-2.0); HEMATOCRIT 29.4 % (32.4-45.2); LYMPH % 3.3 % (8-40); MCH 30.5 pg (25.7-33.7); MEAN CELL VOLUME 89.5 fl (80-96); MEAN PLT VOLUME 8.8 fl (7.5-11.1); MONO % 6.3 % (3.8-10.2); NEUT % 89.1 % (42.8-82.8); PLATELET COUNT 373 K/MM3 (134-434); RBC 3.29 M/mm3 (3.60-5.2); RDW 17.7 % (11.6-15.6)
[2017-11-25] MEDS ORDERED: PT OWN MED DRAWER 7, Y5N ONE (09:04)
[2017-11-25] MEDS: FERROUS SO4 325 MG TABLET (FP) PO SCH (09:10)
[2017-11-25] MEDS: levETIRAcetam 500 MG TABLET (FP) PO SCH ×2 (09:11→21:37)
[2017-11-25 09:12] LABS: ALK PHOS 107 U/L (45-117); ANION GAP 6 (8-16); BILIRUBIN,TOTAL 0.5 mg/dL (0.2-1.0); BLOOD UREA NITROGEN 7 mg/dL (7-18); CALCIUM 8.4 mg/dL (8.5-10.1); CHLORIDE 104 mmol/L (98-107); CO2 29 mmol/L (21-32); CREATININE 0.4 mg/dL (0.55-1.02); GLUCOSE,RANDOM 77 mg/dL (74-106); PHOSPHOROUS 3.1 mg/dL (2.5-4.9); SGPT/ALT 29 U/L (12-78); SODIUM 139 mmol/L (136-145); TOT PROT 5.4 g/dl (6.4-8.2)
[2017-11-25] MEDS: CALCIUM 500MG/VIT-D 200 UNITS COMBO TABLET (FP) PO SCH (09:12)
[2017-11-25] MEDS: CLOPIDOGREL BISULFATE 75 MG TABLET (FP) PO SCH (09:12)
[2017-11-25] MEDS: GABAPENTIN 300 MG CAPSULE (FP) PO SCH ×2 (09:12→21:37)
[2017-11-25] MEDS: MEGESTROL ACETATE 400 MG/10 ML UNIT DOSE CUP PO SCH ×2 (09:12→22:42)
[2017-11-25] MEDS: MULTIVITAMINS (DAILY MVI) TABLET (FP) PO SCH (09:12)
[2017-11-25] MEDS: CHOLECALCIFEROL (VITAMIN D3) 1,000 UNIT TABLET (FP) PO SCH (09:13)
[2017-11-25] MEDS: metoPROLOL SUCCINATE 25 MG TAB.SR.24H (FP) PO SCH (09:13)
[2017-11-25] MEDS: ASCORBIC ACID 500 MG TABLET (FP) PO SCH (09:13)
[2017-11-25] MEDS: RANITIDINE HCL 150 MG TABLET (FP) PO SCH (09:13)
[2017-11-25 09:30] LABS: MAGNESIUM 2.1 mg/dL (1.8-2.4); POTASSIUM 4.9 mmol/L (3.5-5.1); SGOT/AST 38 U/L (15-37)
[2017-11-25] MEDS: HEPARIN NA (PORCINE) 5,000 UNITS/ML 1ML VIAL IVPUSH PRN (10:48)
[2017-11-25] MEDS: HEPARIN SOD,PORK IN 0.45% NACL 25,000 UNITS/500 ML INFUS.BAG IVPB SCH ×2 (10:53→19:19)
[2017-11-25] MEDS: COLLAGENASE CLOSTRIDIUM HIST. 30 GRAMS TUBE TP SCH (11:49)
[2017-11-25] MEDS ORDERED: INSULIN (NOVOLOG) ASPART 100 UNITS/ML 10ML VIAL ONE (12:04)
[2017-11-25] MEDS: ACETAMINOPHEN 325 MG TABLET (FP) PO SCH ×2 (13:36→18:06)
--- NOTE | 2017-11-25 15:27 | PN ---
Teaching Attending Note Name of Resident: Angelito Aguilar ATTENDING PHYSICIAN STATEMENT I saw and evaluated the patient. I reviewed the resident's note and discussed the case with the resident. I agree with the resident's findings and plan as documented. SUBJECTIVE:c/o pain in the foot relieved with pain medication but states she is not getting it. denies CP, SOB, fever, chills, N/V/C/D OBJECTIVE: Last Vital Signs Temp Pulse Resp BP Pulse Ox 98.1 F 92 H 20 144/79 98 11/25/17 08:00 11/25/17 08:00 11/25/17 08:00 11/25/17 08:00 11/24/17 21:00 General NAD, bitemporal wasting, prominent clavicles CV S1 S2 RRR +mechanical heart sounds Lungs CTA B/L no wheezing/rales/rhonchi Extremities R foot with gangrene noted to the 5th digit and forefoot. no drainage. pulse not palpated. 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 Right 5th toe gangrene with overlying cellulits- MRI neg for osteomyelitis. not a surgical candidate. on hep ggt at this time and Zosyn day 5. vanco was d/ c yesterday. will wait to transition to oral abx at this time until family conversation can be made to determine overall goals of care. will make tylenol Q6H standing as pt is not requesting pain medication and tramadol prn pain. ID, podiatry and vascular surgery on board 2. Severe malnutrition- as evident by body habitus and BMI 14.8. started on appetite stimulant megace. can titrate as tolerated. dietary supplements. dietary on board 3. PVD s/p recent intervention with stent placements and ?graft 4. Acute blood loss anemia from left groin site-s/p 3 PRBC this hospital stay. on iron supplementation. 5. Mechanical AVR 6. Lactic acidosis,from sepsis vs limb ischemia, resolved. 7. IDDM 8. HTN 9. DVT ppx- Hep ggt 10. DNR/DNI. poor overall prognosis. palliative care to meet with family to speak on GOC
[2017-11-25] MEDS: traMADol HCL 50 MG TABLET PO PRN (15:59)
--- NOTE | 2017-11-25 16:51 | PN ---
Physical Exam: SUBJECTIVE: Patient seen and examined at bed side. No acute events overnight. No complaints and denies any fevers, chills, n/V/D, weakness, confusion, urinary sxs. On hep gtt OBJECTIVE: Vital Signs Period Temp Pulse Resp BP Sys/Yates Pulse Ox Last 24 Hr 98.1 F-99.7 F 89-112 18-20 124-144/58-79 98 GENERAL: AOx3. NAD. cachectic and thin appearing HEENT: NAD. b/l temporal wasting. PERRL, sclera anicteric, conjunctiva clear. MMM. LUNGS: CTAB. No accessory muscle use. HEART: RRR, normal S1 and S2 without murmur, audible click from valve. well healed sternal scar ABDOMEN: well-healed abdominal scar. Soft, NTND +BS, no guarding, no rebound, no masses. L groin has bandage, no swelling, tenderness, erythema or blood noted at the site. MUSCULOSKELETAL: wnl rom at shoulders, elbows, wrists. decr in b/l hips, knees and ankles. UPPER EXTREMITIES: 2+ radial pulses, warm, well-perfused. No cyanosis. No clubbing. LUE swelling improved LOWER EXTREMITIES: RLE in dressing, right gangrenous 5th toe, overlying erythema on the dorsum of the right foot, gangrene appears to be advancing but slowly, unable to palpate R DP or PT pulses, faint left dp pulse. warm. ttp at R toes and at foot. NEUROLOGICAL: Cranial nerves II-XII intact. Normal speech. facial symmetry. power generalized weakness 4/5 SKIN: Warm, dry, normal turgor Laboratory Results - last 24 hr 11/20/17 11/24/17 11/24/17 07:00 18:23 21:43 WBC RBC Hgb Hct MCV MCH MCHC RDW Plt Count MPV Absolute Neuts (auto) Neutrophils % Lymphocytes % Monocytes % Eosinophils % Basophils % Nucleated RBC % PTT (Actin FS) Sodium Potassium Chloride Carbon Dioxide Anion Gap BUN Creatinine Creat Clearance w eGFR POC Glucometer 62 172 Random Glucose Calcium Phosphorus Magnesium Total Bilirubin AST ALT Alkaline Phosphatase Total Protein Albumin Blood Type B POSITIVE Antibody Screen Negative Crossmatch See Detail 11/25/17 11/25/17 11/25/17 05:46 07:00 07:00 WBC 9.0 RBC 3.29 L Hgb 10.0 L Hct 29.4 L MCV 89.5 MCH 30.5 MCHC 34.0 RDW 17.7 H Plt Count 373 MPV 8.8 Absolute Neuts (auto) 8.0 Neutrophils % 89.1 H Lymphocytes % 3.3 L D Monocytes % 6.3 Eosinophils % 1.0 Basophils % 0.3 Nucleated RBC % 0 PTT (Actin FS) 36.4 Sodium Potassium Chloride Carbon Dioxide Anion Gap BUN Creatinine Creat Clearance w eGFR POC Glucometer 94 Random Glucose Calcium Phosphorus Magnesium Total Bilirubin AST ALT Alkaline Phosphatase Total Protein Albumin Blood Type Antibody Screen Crossmatch 11/25/17 11/25/17 11/25/17 07:00 11:33 16:23 WBC RBC Hgb Hct MCV MCH MCHC RDW Plt Count MPV Absolute Neuts (auto) Neutrophils % Lymphocytes % Monocytes % Eosinophils % Basophils % Nucleated RBC % PTT (Actin FS) Sodium 139 Potassium 4.9 Chloride 104 Carbon Dioxide 29 Anion Gap 6 L BUN 7 Creatinine 0.4 L Creat Clearance w eGFR > 60 POC Glucometer 182 78 Random Glucose 77 Calcium 8.4 L Phosphorus 3.1 Magnesium 2.1 Total Bilirubin 0.5 AST 38 H ALT 29 Alkaline Phosphatase 107 D Total Protein 5.4 L Albumin 2.0 L Blood Type Antibody Screen Crossmatch Active Medications Generic Name Dose Route Start Last Admin Trade Name Zulema PRN Reason Stop Dose Admin Acetaminophen 650 mg 11/25/17 12:30 11/25/17 13:36 Tylenol - PO 650 mg Q6H GUANAKO Administration Ascorbic Acid 500 mg 11/21/17 10:00 11/25/17 09:13 Vitamin C - PO 500 mg DAILY GUANAKO Administration Atorvastatin Calcium 10 mg 11/21/17 22:00 11/24/17 21:46 Lipitor - PO 10 mg HS GUANAKO Administration Calcium Carbonate/Cholecalciferol 1 tab 11/21/17 10:00 11/25/17 09:12 Os-Matt 500+D - PO 1 tab DAILY GUANAKO Administration Cholecalciferol 2,000 unit 11/21/17 10:00 11/25/17 09:13 Vitamin D3 - PO 2,000 unit DAILY GUANAKO Administration Clopidogrel Bisulfate 75 mg 11/21/17 10:00 11/25/17 09:12 Plavix - PO 75 mg DAILY GUANAKO Administration Collagenase 1 applic 11/21/17 10:00 11/25/17 11:49 Santyl - TP 1 applic DAILY GUANAKO Administration Protocol Ferrous Sulfate 325 mg 11/21/17 10:00 11/25/17 09:10 Feosol - PO 325 mg DAILY GUANAKO Administration Gabapentin 300 mg 11/21/17 10:00 11/25/17 09:12 Neurontin - PO 300 mg BID GUANAKO Administration Heparin Sodium (Porcine) 1,000 unit 11/21/17 08:56 Heparin - IVPUSH PRN PRN Heparin Heparin Sodium (Porcine) 5,000 unit 11/21/17 08:56 11/25/17 10:48 Heparin - IVPUSH 5,000 unit PRN PRN Administration Heparin Piperacillin Sod/Tazobactam 50 mls @ 100 mls/hr 11/21/17 10:00 11/25/17 10:52 Sod 2.25 gm/ Dextrose IVPB 100 mls/hr Q8H-IV GUANAKO Administration Protocol HEPARIN SOD,PORK IN 0.45% NACL 25,000 units in 500 mls @ 16 mls/hr 11/23/17 14 :00 11/25/17 10:53 Heparin-1/2ns 25,000 Units/500 IVPB 400 units/hr TITR GUANAKO 8 mls/hr Administration Protocol 800 UNITS/HR Insulin Aspart 1 vial 11/21/17 11:00 11/25/17 16:27 Novolog Vial Sliding Scale - SQ Not Given ACHS [facility] Protocol Levetiracetam 500 mg 11/21/17 10:00 11/25/17 09:11 Keppra - PO 500 mg BID GUANAKO Administration Megestrol Acetate 400 mg 11/21/17 10:00 11/25/17 09:12 Megace Oral Suspension - PO 400 mg BID GUANAKO Administration Metoprolol Succinate 25 mg 11/21/17 10:00 11/25/17 09:13 Toprol Xl - PO 25 mg DAILY GUANAKO Administration Multivitamins/Minerals/Vitamin C 1 tab 11/21/17 10:00 11/25/17 09:12 Tab-A-Vit - PO 1 tab DAILY GUANAKO Administration Ranitidine HCl 150 mg 11/21/17 10:00 11/25/17 09:13 Zantac - PO 150 mg DAILY GUANAOK Administration Tramadol HCl 50 mg 11/21/17 17:03 11/25/17 15:59 Ultram - PO 50 mg Q6H PRN Administration PAIN LEVEL 6-10 ASSESSMENT/PLAN: 86 yr old woman with PMH of DM, Afib, open heart bypass (1991), gastrectomy ( 2012), lung cancer treated with chemotherapy + pneumothorax (08/2017), and multiple falls leading to R hip/femur fracture and subdural hematoma, brought in from SNF for right toe gangrene admitted for further evaluation and management. #right toe gangrene with cellulitis - vascular surgery unable to revascularize, will f/u w/ podiatry for possible BKA. Today Gangrene appears to be advancing slowly -Dr. castillo rec - no intervention, palliative care -Talk to family about hospice care -podiatry(dr. castillo) and vasc(dr. call) -was premedicated with solumedrol/Benadryl in preperation for use of contrast intra-op 11/21/17. possible allergy to Iodine few years back. Received cortisone prior to surgery at [facility] a month ago -GI PPX - zantac - heparin drip, hold coumadin pending podiatry recs -vitamin K 10 mg and FFP given yesterday - wound care with betadine + dressing - c/w zosyn 3.375 q8hr started 11/18 -d/c vanco today -may consider augmentin PO -vanco levels therapeutic 11/22 - ID consult - Dr. Pitt - if possible obtain culture report from previous amputation at [facility] - continuous bedrest rest, fall risk precautions, will initiate PT post- surgical pending surgical recommendations - tylenol/tramadol for pain control, uptitrate if further pain control needed -Podiatry recs, palliative care with dressing changes. Follow up for surgical intervention #LUE swelling - resolved -on hep gtt w/ elevated PTT so unlikely DVT. swelling was noted w/ pitting edema in hand and forearm. non tender and no erythema -warm compresses and elevation L groin site bleed - currently not bleeding. has bandage, no swelling, tenderness, erythema or blood noted at the site. - continue to monitor -bandage dressing -H/H is stable at 10.8, 7...11.6...10.8, s/p 1 unit PRBC 11/22/17 #Severe Malnutrition - BMI 14. pt is cachetic w/ b/l temporal wasting on physical exam. pt eating breakfast today - megace 400mg po bid - continue supplements; ca, MVI, vitamins, glucerna #Decubitis sacral ulcer -wound care -oob w/ assist as tolerated and change position in bed #DM - hold home januvia and levemir - NISS/BGM ACHS - continue gabapentin 300mg po BID - A1c ordered #Afib/mechanical aortic valve - INR goal 2.5-3.5, currently therapeutic, hold coumadin(1 mg daily) for surgery - when INR <2.5, initiate heparin drip - repeat labs coags in the AM #PAD/PVD - plavix 75mg po daily, continue daily - pt had recent stents #HTN - metoprolol succ 25mg po daily #Seizures - keppra 500mg po bid daily #HLD - zocor 20mg po HS #s/p gastrectomy - pepcid 20mg po daily #chronic anemia - ferrous sulfate 325mg po daily #DVT - warfarin held for surgery sharifa. Hep gtt started #FEN - Off IVF, encourage oral intake. -dysphagia ordered as per [facility] records that's what the pt was eating. -replete phosph prn #Code status - -Code status DNR/DNI - confirmed with daughter and advance directives from NH. Overall prognosis guarded, palliative care input to address overall goals of care. #Dispo -per wound care no intervention, will benefit from palliative care. -Talk to family about hospice care Visit type - Emergency Visit Emergency Visit: Yes ED Registration Date: 11/18/17 Care time: The patient presented to the Emergency Department on the above date and was hospitalized for further evaluation of their emergent condition. - New Patient This patient is new to me today: Yes Date on this admission: 11/25/17 - Critical Care Critical Care patient: No
--- NOTE | 2017-11-25 18:20 | PN ---
Progress Note (short form) - Note Progress Note: Patiet seen in bed. FUV right foot. Daughter present. +demarcating more proximally wound right foot, -drainage, -mal odor, +tender, weak pulses b/l, +tender, wbc=9.0 Gangarene, Cellulitis PVD Will continue with palliative care at this time. daily betadine dressing change. IVABX as per ID. will follow. no intervention at this time.
[2017-11-25] MEDS: ATORVASTATIN CA 10 MG TABLET (FP) PO SCH (21:37)
[2017-11-26] MEDS: ACETAMINOPHEN 325 MG TABLET (FP) PO SCH ×4 (00:03→19:14)
[2017-11-26] MEDS: traMADol HCL 50 MG TABLET PO PRN ×2 (00:04→13:50)
[2017-11-26] MEDS ORDERED: PIPERACILLIN/TAZOBACTAM 2.25 GM VIAL IVPB ONE ×3 (00:10→18:09)
[2017-11-26] MEDS ORDERED: DEXTROSE 5%-WATER - 50 ML IVPB ONE ×3 (00:11→18:10)
[2017-11-26] MEDS: PIPERACILLIN/TAZOB 2.25 GM 2.25 GM in DEXTROSE 5%-WATER - 50 ML IVPB SCH ×3 (01:26→18:19)
[2017-11-26] MEDS: HEPARIN NA (PORCINE) 5,000 UNITS/ML 1ML VIAL IVPUSH PRN (01:47)
[2017-11-26] MEDS: HEPARIN SOD,PORK IN 0.45% NACL 25,000 UNITS/500 ML INFUS.BAG IVPB SCH ×2 (01:48→18:20)
[2017-11-26] MEDS: INSULIN SLIDING SCALE (NOVOLOG) 1 VIAL SQ SCH ×3 (06:12→17:08)
--- NOTE | 2017-11-26 08:25 | PN ---
Physical Exam: SUBJECTIVE: Patient seen and examined at bed side. No acute events overnight. pt initially appeared a little confused and lethargic. when asked orientation questions, MD was required to repeat questions multiple times and pt would eventually answer appropriately but would intermittently respond "124", although difficult to hear as pt speaks with heavy [place] accent. When MD came back pt appeared more awake and answered questions readily. Will monitor. No complaints and denies any fevers, chills, n/V/D, weakness, confusion, urinary sxs. On hep gtt OBJECTIVE: Vital Signs Period Temp Pulse Resp BP Sys/Yates Pulse Ox Last 24 Hr 97.3 F-99.4 F 83-112 18-20 122-139/60-75 98 GENERAL: AOx3. NAD. cachectic and thin appearing HEENT: NAD. b/l temporal wasting. PERRL, sclera anicteric, conjunctiva clear. MMM. LUNGS: CTAB. No accessory muscle use. HEART: RRR, normal S1 and S2 without murmur, audible click from valve. well healed sternal scar ABDOMEN: well-healed abdominal scar. Soft, NTND +BS, no guarding, no rebound, no masses. L groin has bandage, no swelling, tenderness, erythema or blood noted at the site. MUSCULOSKELETAL: wnl rom at shoulders, elbows, wrists. decr in b/l hips, knees and ankles. UPPER EXTREMITIES: 1+ radial pulses, cool to touch, well-perfused. No cyanosis. No clubbing. LUE swelling improved LOWER EXTREMITIES: RLE in dressing, right gangrenous 5th toe, overlying erythema on the dorsum of the right foot, gangrene appears to be advancing but slowly, unable to palpate R DP or PT pulses, faint left dp pulse. warm R >L. ttp at R toes and at foot. NEUROLOGICAL: Cranial nerves II-XII intact. Normal speech. facial symmetry. power generalized weakness 4/5 SKIN: Warm, dry, normal turgor Laboratory Results - last 24 hr 11/20/17 11/25/17 11/25/17 07:00 07:00 07:00 WBC 9.0 RBC 3.29 L Hgb 10.0 L Hct 29.4 L MCV 89.5 MCH 30.5 MCHC 34.0 RDW 17.7 H Plt Count 373 MPV 8.8 Absolute Neuts (auto) 8.0 Neutrophils % 89.1 H Lymphocytes % 3.3 L D Monocytes % 6.3 Eosinophils % 1.0 Basophils % 0.3 Nucleated RBC % 0 PTT (Actin FS) 36.4 Sodium Potassium Chloride Carbon Dioxide Anion Gap BUN Creatinine Creat Clearance w eGFR POC Glucometer Random Glucose Calcium Phosphorus Magnesium Total Bilirubin AST ALT Alkaline Phosphatase Total Protein Albumin Blood Type B POSITIVE Antibody Screen Negative Crossmatch See Detail 11/25/17 11/25/17 11/25/17 07:00 11:33 16:00 WBC RBC Hgb Hct MCV MCH MCHC RDW Plt Count MPV Absolute Neuts (auto) Neutrophils % Lymphocytes % Monocytes % Eosinophils % Basophils % Nucleated RBC % PTT (Actin FS) 136.7 H Sodium 139 Potassium 4.9 Chloride 104 Carbon Dioxide 29 Anion Gap 6 L BUN 7 Creatinine 0.4 L Creat Clearance w eGFR > 60 POC Glucometer 182 Random Glucose 77 Calcium 8.4 L Phosphorus 3.1 Magnesium 2.1 Total Bilirubin 0.5 AST 38 H ALT 29 Alkaline Phosphatase 107 D Total Protein 5.4 L Albumin 2.0 L Blood Type Antibody Screen Crossmatch 11/25/17 11/25/17 11/26/17 16:23 22:01 00:20 WBC RBC Hgb Hct MCV MCH MCHC RDW Plt Count MPV Absolute Neuts (auto) Neutrophils % Lymphocytes % Monocytes % Eosinophils % Basophils % Nucleated RBC % PTT (Actin FS) 48.4 H Sodium Potassium Chloride Carbon Dioxide Anion Gap BUN Creatinine Creat Clearance w eGFR POC Glucometer 78 171 Random Glucose Calcium Phosphorus Magnesium Total Bilirubin AST ALT Alkaline Phosphatase Total Protein Albumin Blood Type Antibody Screen Crossmatch 11/26/17 05:46 WBC RBC Hgb Hct MCV MCH MCHC RDW Plt Count MPV Absolute Neuts (auto) Neutrophils % Lymphocytes % Monocytes % Eosinophils % Basophils % Nucleated RBC % PTT (Actin FS) Sodium Potassium Chloride Carbon Dioxide Anion Gap BUN Creatinine Creat Clearance w eGFR POC Glucometer 98 Random Glucose Calcium Phosphorus Magnesium Total Bilirubin AST ALT Alkaline Phosphatase Total Protein Albumin Blood Type Antibody Screen Crossmatch Active Medications Generic Name Dose Route Start Last Admin Trade Name Freq PRN Reason Stop Dose Admin Acetaminophen 650 mg 11/25/17 12:30 11/26/17 06:22 Tylenol - PO 650 mg Q6H GUANAKO Administration Ascorbic Acid 500 mg 11/21/17 10:00 11/25/17 09:13 Vitamin C - PO 500 mg DAILY GUANAKO Administration Atorvastatin Calcium 10 mg 11/21/17 22:00 11/25/17 21:37 Lipitor - PO 10 mg HS GUANAKO Administration Calcium Carbonate/Cholecalciferol 1 tab 11/21/17 10:00 11/25/17 09:12 Os-Matt 500+D - PO 1 tab DAILY GUANAKO Administration Cholecalciferol 2,000 unit 11/21/17 10:00 11/25/17 09:13 Vitamin D3 - PO 2,000 unit DAILY GUANAKO Administration Clopidogrel Bisulfate 75 mg 11/21/17 10:00 11/25/17 09:12 Plavix - PO 75 mg DAILY GUANAKO Administration Collagenase 1 applic 11/21/17 10:00 11/25/17 11:49 Santyl - TP 1 applic DAILY GUANAKO Administration Protocol Ferrous Sulfate 325 mg 11/21/17 10:00 11/25/17 09:10 Feosol - PO 325 mg DAILY GUANAKO Administration Gabapentin 300 mg 11/21/17 10:00 11/25/17 21:37 Neurontin - PO 300 mg BID GUANAKO Administration Heparin Sodium (Porcine) 1,000 unit 11/21/17 08:56 11/26/17 01:47 Heparin - IVPUSH 1,000 unit PRN PRN Administration Heparin Heparin Sodium (Porcine) 5,000 unit 11/21/17 08:56 11/25/17 10:48 Heparin - IVPUSH 5,000 unit PRN PRN Administration Heparin Piperacillin Sod/Tazobactam 50 mls @ 100 mls/hr 11/21/17 10:00 11/26/17 01:26 Sod 2.25 gm/ Dextrose IVPB 100 mls/hr Q8H-IV GUANAKO Administration Protocol HEPARIN SOD,PORK IN 0.45% NACL 25,000 units in 500 mls @ 16 mls/hr 11/23/17 14 :00 11/26/17 01:48 Heparin-1/2ns 25,000 Units/500 IVPB 300 units/hr TITR GUANAKO 6 mls/hr Administration Protocol 800 UNITS/HR Insulin Aspart 1 vial 11/21/17 11:00 11/26/17 06:12 Novolog Vial Sliding Scale - SQ Not Given ACHS GUANAKO Protocol Levetiracetam 500 mg 11/21/17 10:00 11/25/17 21:37 Keppra - PO 500 mg BID GUANAKO Administration Megestrol Acetate 400 mg 11/21/17 10:00 11/25/17 22:42 Megace Oral Suspension - PO 400 mg BID GUANAKO Administration Metoprolol Succinate 25 mg 11/21/17 10:00 11/25/17 09:13 Toprol Xl - PO 25 mg DAILY GUANAKO Administration Multivitamins/Minerals/Vitamin C 1 tab 11/21/17 10:00 11/25/17 09:12 Tab-A-Vit - PO 1 tab DAILY GUANAKO Administration Ranitidine HCl 150 mg 11/21/17 10:00 11/25/17 09:13 Zantac - PO 150 mg DAILY GUANAKO Administration Tramadol HCl 50 mg 11/21/17 17:03 11/26/17 00:04 Ultram - PO 50 mg Q6H PRN Administration PAIN LEVEL 6-10 ASSESSMENT/PLAN: 86 yr old woman with PMH of DM, Afib, open heart bypass (1991), gastrectomy ( 2012), lung cancer treated with chemotherapy + pneumothorax (08/2017), and multiple falls leading to R hip/femur fracture and subdural hematoma, brought in from SNF for right toe gangrene admitted for further evaluation and management. #right toe gangrene with cellulitis - vascular surgery unable to revascularize. podiatry recommending palliative care only. Today Gangrene appears to be advancing slowly -spoke w/ daughter about hospice care. daughter wants to take pt home w/ visiting nurse until she can no longer care for her and then send her to a facility like [place] -podiatry(dr. castillo) and vasc(dr. call) -was premedicated with solumedrol/Benadryl in preperation for use of contrast intra-op 11/21/17. possible allergy to Iodine few years back. Received cortisone prior to surgery at [facility] a month ago -GI PPX - zantac - heparin drip, restarting coumadin 1mg today -Can do coumadin at hospice -vitamin K 10 mg and FFP given yesterday - wound care with betadine + dressing - c/w zosyn 3.375 q8hr started 11/18 -d/c vanco yesterday -may consider augmentin PO -vanco levels therapeutic 11/22 - ID consult - Dr. Yoandy - if possible obtain culture report from previous amputation at [facility] - continuous bedrest rest, fall risk precautions, will initiate PT post- surgical pending surgical recommendations - tylenol/tramadol for pain control, uptitrate if further pain control needed -Podiatry recs, palliative care with dressing changes. Follow up for surgical intervention #LUE swelling - resolved -on hep gtt w/ elevated PTT so unlikely DVT. swelling was noted w/ pitting edema in hand and forearm. non tender and no erythema -warm compresses and elevation L groin site bleed - currently not bleeding. has bandage, no swelling, tenderness, erythema or blood noted at the site. - continue to monitor -bandage dressing -H/H is stable at 10.8, 7...11.6...10.8, s/p 1 unit PRBC 11/22/17 #Severe Malnutrition - BMI 14. pt is cachetic w/ b/l temporal wasting on physical exam. pt eating breakfast today - megace 400mg po bid - continue supplements; ca, MVI, vitamins, glucerna #Decubitis sacral ulcer -wound care -oob w/ assist as tolerated and change position in bed #DM - hold home januvia and levemir - NISS/BGM ACHS - continue gabapentin 300mg po BID - A1c ordered #Afib/mechanical aortic valve - INR goal 2.5-3.5, currently therapeutic, hold coumadin(1 mg daily) for surgery - when INR <2.5, initiate heparin drip - repeat labs coags in the AM #PAD/PVD - plavix 75mg po daily, continue daily - pt had recent stents #HTN - metoprolol succ 25mg po daily #Seizures - keppra 500mg po bid daily #HLD - zocor 20mg po HS #s/p gastrectomy - pepcid 20mg po daily #chronic anemia - ferrous sulfate 325mg po daily #DVT - warfarin held for surgery sharifa. Hep gtt started #FEN - Off IVF, encourage oral intake. -dysphagia ordered as per [facility] records that's what the pt was eating. -replete phosph prn #Code status - -Code status DNR/DNI - confirmed with daughter and advance directives from NH. Overall prognosis guarded, palliative care input to address overall goals of care. #Dispo -per wound care no intervention, will benefit from palliative care. -spoke w/ daughter about hospice care. daughter wants to take pt home w/ visiting nurse until she can no longer care for her and then send her to a facility like [place] Visit type - Emergency Visit Emergency Visit: Yes ED Registration Date: 11/18/17 Care time: The patient presented to the Emergency Department on the above date and was hospitalized for further evaluation of their emergent condition. - New Patient This patient is new to me today: Yes Date on this admission: 11/26/17 - Critical Care Critical Care patient: No
[2017-11-26 08:42] LABS: HEMATOCRIT 30.9 % (32.4-45.2); HEMOGLOBIN 10.3 GM/dL (10.7-15.3); MCH 30.2 pg (25.7-33.7); MCHC 33.4 g/dl (32.0-36.0); MEAN CELL VOLUME 90.5 fl (80-96); MEAN PLT VOLUME 8.7 fl (7.5-11.1); PLATELET COUNT 350 K/MM3 (134-434); RBC 3.41 M/mm3 (3.60-5.2); RDW 17.9 % (11.6-15.6); WHITE BLOOD COUNT 7.2 K/mm3 (4.0-10.0)
[2017-11-26 08:56] LABS: ALBUMIN 2.2 g/dl (3.4-5.0); ANION GAP 5 (8-16); BLOOD UREA NITROGEN 7 mg/dL (7-18); CALCIUM 8.9 mg/dL (8.5-10.1); CHLORIDE 105 mmol/L (98-107); CO2 31 mmol/L (21-32); CREATININE 0.5 mg/dL (0.55-1.02); GLUCOSE,RANDOM 97 mg/dL (74-106); POTASSIUM 4.4 mmol/L (3.5-5.1); SGOT/AST 29 U/L (15-37); SGPT/ALT 28 U/L (12-78); SODIUM 141 mmol/L (136-145)
[2017-11-26 08:59] LABS: ALK PHOS 110 U/L (45-117); BILIRUBIN,TOTAL 0.3 mg/dL (0.2-1.0); TOT PROT 5.7 g/dl (6.4-8.2)
[2017-11-26] MEDS: levETIRAcetam 500 MG TABLET (FP) PO SCH ×2 (11:14→21:54)
[2017-11-26] MEDS: CLOPIDOGREL BISULFATE 75 MG TABLET (FP) PO SCH (11:14)
[2017-11-26] MEDS: ASCORBIC ACID 500 MG TABLET (FP) PO SCH (11:14)
[2017-11-26] MEDS: CALCIUM 500MG/VIT-D 200 UNITS COMBO TABLET (FP) PO SCH (11:14)
[2017-11-26] MEDS: CHOLECALCIFEROL (VITAMIN D3) 1,000 UNIT TABLET (FP) PO SCH (11:15)
[2017-11-26] MEDS: FERROUS SO4 325 MG TABLET (FP) PO SCH (11:15)
[2017-11-26] MEDS: MULTIVITAMINS (DAILY MVI) TABLET (FP) PO SCH (11:15)
[2017-11-26] MEDS: metoPROLOL SUCCINATE 25 MG TAB.SR.24H (FP) PO SCH (11:15)
[2017-11-26] MEDS: GABAPENTIN 300 MG CAPSULE (FP) PO SCH ×2 (11:15→21:54)
[2017-11-26] MEDS: RANITIDINE HCL 150 MG TABLET (FP) PO SCH (11:15)
[2017-11-26] MEDS ORDERED: PT OWN MED DRAWER 7, Y5N ONE (11:18)
[2017-11-26] MEDS: MEGESTROL ACETATE 400 MG/10 ML UNIT DOSE CUP PO SCH ×2 (11:19→22:10)
[2017-11-26] MEDS: COLLAGENASE CLOSTRIDIUM HIST. 30 GRAMS TUBE TP SCH (14:03)
--- NOTE | 2017-11-26 14:33 | PN ---
Teaching Attending Note Name of Resident: Angelito Aguilar ATTENDING PHYSICIAN STATEMENT I saw and evaluated the patient. I reviewed the resident's note and discussed the case with the resident. I agree with the resident's findings and plan as documented. SUBJECTIVE: asymptomatic. 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 Right 5th toe gangrene with overlying cellulits- MRI neg for osteomyelitis. not a surgical candidate. family discussion and deciding on home hospice at this time. will stop hep ggt. will start tramadol HS and cont with tylenol RTC. will d/c other medication. ID, podiatry and vascular surgery on board 2. Severe malnutrition- as evident by body habitus and BMI 14.8. started on appetite stimulant megace. can titrate as tolerated. dietary supplements. dietary on board 3. DNR/DNI. poor overall prognosis. to go home with home hospice. will wait to hear from SW when everything is set up.
[2017-11-26] MEDS ORDERED: WARFARIN NA 1 MG TABLET (FP) PO SCH (18:00)
[2017-11-26] MEDS ORDERED: WARFARIN NA 5 MG TABLET (UD) PO SCH (18:00)
--- NOTE | 2017-11-26 21:16 | PN ---
Progress Note (short form) - Note Progress Note: Patiet seen in bed. FUV right foot. Seen 7:30am. +demarcating more proximally wound right foot, -drainage, -mal odor, +tender, weak pulses b/l, +tender, wbc=7.2 [place], Cellulitis PVD Will continue with palliative care at this time. daily betadine dressing change. IVABX as per ID. will follow. no intervention at this time.
[2017-11-26] MEDS: ATORVASTATIN CA 10 MG TABLET (FP) PO SCH (21:54)
[2017-11-26] MEDS: traMADol HCL 50 MG TABLET PO SCH (22:08)
[2017-11-27] MEDS: ACETAMINOPHEN 325 MG TABLET (FP) PO SCH ×4 (01:00→18:04)
[2017-11-27] MEDS: PIPERACILLIN/TAZOB 2.25 GM 2.25 GM in DEXTROSE 5%-WATER - 50 ML IVPB SCH ×2 (03:00→11:31)
[2017-11-27] MEDS: INSULIN SLIDING SCALE (NOVOLOG) 1 VIAL SQ SCH ×3 (05:14→12:47)
[2017-11-27] MEDS ORDERED: DEXTROSE 5%-WATER - 50 ML IVPB ONE ×2 (05:18→11:02)
[2017-11-27] MEDS ORDERED: PIPERACILLIN/TAZOBACTAM 2.25 GM VIAL IVPB ONE ×2 (05:18→11:01)
[2017-11-27 07:57] LABS: HEMATOCRIT 27.8 % (32.4-45.2); HEMOGLOBIN 9.5 GM/dL (10.7-15.3); MCH 30.5 pg (25.7-33.7); MCHC 34.3 g/dl (32.0-36.0); MEAN CELL VOLUME 88.8 fl (80-96); MEAN PLT VOLUME 8.8 fl (7.5-11.1); PLATELET COUNT 324 K/MM3 (134-434); RBC 3.13 M/mm3 (3.60-5.2); RDW 17.6 % (11.6-15.6)
[2017-11-27 08:05] LABS: INR 1.14 (0.83-1.09); PROTHROMBIN TIME (PATIENT) 12.9 SEC (9.7-13.0)
[2017-11-27] MEDS: traMADol HCL 50 MG TABLET PO PRN (08:25)
[2017-11-27] MEDS: HEPARIN NA (PORCINE) 5,000 UNITS/ML 1ML VIAL IVPUSH PRN (09:01)
[2017-11-27] MEDS: COLLAGENASE CLOSTRIDIUM HIST. 30 GRAMS TUBE TP SCH (10:00)
[2017-11-27] MEDS: FERROUS SO4 325 MG TABLET (FP) PO SCH (11:29)
[2017-11-27] MEDS: levETIRAcetam 500 MG TABLET (FP) PO SCH (11:29)
[2017-11-27] MEDS: CLOPIDOGREL BISULFATE 75 MG TABLET (FP) PO SCH (11:30)
[2017-11-27] MEDS: RANITIDINE HCL 150 MG TABLET (FP) PO SCH (11:30)
[2017-11-27] MEDS: MULTIVITAMINS (DAILY MVI) TABLET (FP) PO SCH (11:30)
[2017-11-27] MEDS: ASCORBIC ACID 500 MG TABLET (FP) PO SCH (11:30)
[2017-11-27] MEDS: GABAPENTIN 300 MG CAPSULE (FP) PO SCH (11:31)
[2017-11-27] MEDS: CHOLECALCIFEROL (VITAMIN D3) 1,000 UNIT TABLET (FP) PO SCH (11:31)
[2017-11-27] MEDS: CALCIUM 500MG/VIT-D 200 UNITS COMBO TABLET (FP) PO SCH (11:31)
[2017-11-27] MEDS: metoPROLOL SUCCINATE 25 MG TAB.SR.24H (FP) PO SCH (11:31)
[2017-11-27] MEDS: MEGESTROL ACETATE 400 MG/10 ML UNIT DOSE CUP PO SCH ×2 (11:44→21:45)
--- NOTE | 2017-11-27 12:24 | PN ---
Progress Note (short form) - Note Progress Note: Patiet seen in bed. FUV right foot. +demarcating wound right foot, -drainage, +mal odor, weak pulses b/l, +tender, wbc=6.0 [place], Cellulitis PVD Will continue with palliative care at this time. daily betadine dressing change. IVABX as per ID. will follow. no intervention at this time.
--- NOTE | 2017-11-27 14:03 | PN ---
Teaching Attending Note Name of Resident: Angelito Aguilar ATTENDING PHYSICIAN STATEMENT I saw and evaluated the patient. I reviewed the resident's note and discussed the case with the resident. I agree with the resident's findings and plan as documented. SUBJECTIVE:pain is controlled. 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 Right 5th toe gangrene with overlying cellulits- MRI neg for osteomyelitis. not a surgical candidate. plan is for comfort measures and pt to go home for home hospice. plan to only conitnue pain control at this point. will d/c other medication and stopped labs. 2. Severe malnutrition- as evident by body habitus and BMI 14.8. 3. DNR/DNI. poor overall prognosis. to go home with home hospice. will wait to hear from SW when everything is set up.
--- NOTE | 2017-11-27 15:42 | PN ---
Physical Exam: SUBJECTIVE: Patient seen and examined at bed side. No acute events overnight. c/o pain in foot but improved w/ pain meds. denies any fever cp, sob, n/v/d urinary sxs OBJECTIVE: Vital Signs Period Temp Pulse Resp BP Sys/Yates Pulse Ox Last 24 Hr 97.9 F-98.8 F 91-100 18-20 117-142/62-83 100 GENERAL: AOx3. NAD. cachectic and thin appearing HEENT: NAD. b/l temporal wasting. PERRL, sclera anicteric, conjunctiva clear. MMM. LUNGS: CTAB. No accessory muscle use. HEART: RRR, normal S1 and S2 without murmur, audible click from valve. well healed sternal scar ABDOMEN: well-healed abdominal scar. Soft, NTND +BS, no guarding, no rebound, no masses. L groin has bandage, no swelling, tenderness, erythema or blood noted at the site. MUSCULOSKELETAL: wnl rom at shoulders, elbows, wrists. decr in b/l hips, knees and ankles. UPPER EXTREMITIES: 1+ radial pulses, cool to touch, well-perfused. No cyanosis. No clubbing. LUE swelling improved LOWER EXTREMITIES: RLE in dressing, right gangrenous 5th toe, overlying erythema on the dorsum of the right foot, gangrene appears to be advancing but slowly, unable to palpate R DP or PT pulses, faint left dp pulse. warm R >L. ttp at R toes and at foot. NEUROLOGICAL: Cranial nerves II-XII intact. Normal speech. facial symmetry. power generalized weakness 4/5 SKIN: Warm, dry, normal turgor Laboratory Results - last 24 hr 11/26/17 11/27/17 11/27/17 17:02 07:00 07:00 WBC 6.0 RBC 3.13 L Hgb 9.5 L Hct 27.8 L MCV 88.8 MCH 30.5 MCHC 34.3 RDW 17.6 H Plt Count 324 MPV 8.8 PT with INR INR PTT (Actin FS) 42.7 H POC Glucometer 92 11/27/17 11/27/17 11/27/17 07:00 07:53 12:38 WBC RBC Hgb Hct MCV MCH MCHC RDW Plt Count MPV PT with INR 12.90 INR 1.14 H PTT (Actin FS) POC Glucometer 100 270 Active Medications Generic Name Dose Route Start Last Admin Trade Name Freq PRN Reason Stop Dose Admin Acetaminophen 650 mg 11/25/17 12:30 11/27/17 12:46 Tylenol - PO 650 mg Q6H GUANAKO Administration Heparin Sodium (Porcine) 1,000 unit 11/21/17 08:56 11/27/17 09:01 Heparin - IVPUSH 1,000 unit PRN PRN Administration Heparin Heparin Sodium (Porcine) 5,000 unit 11/21/17 08:56 11/25/17 10:48 Heparin - IVPUSH 5,000 unit PRN PRN Administration Heparin Piperacillin Sod/Tazobactam 50 mls @ 100 mls/hr 11/21/17 10:00 11/27/17 11:31 Sod 2.25 gm/ Dextrose IVPB 100 mls/hr Q8H-IV GUANAKO Administration Protocol Megestrol Acetate 400 mg 11/21/17 10:00 11/27/17 11:44 Megace Oral Suspension - PO 400 mg BID GUANAKO Administration Tramadol HCl 50 mg 11/21/17 17:03 11/27/17 08:25 Ultram - PO 50 mg Q6H PRN Administration PAIN LEVEL 6-10 Tramadol HCl 50 mg 11/26/17 22:00 11/26/17 22:08 Ultram - PO 50 mg HS GUANAKO Administration ASSESSMENT/PLAN: 86 yr old woman with PMH of DM, Afib, open heart bypass (1991), gastrectomy ( 2012), lung cancer treated with chemotherapy + pneumothorax (08/2017), and multiple falls leading to R hip/femur fracture and subdural hematoma, brought in from SNF for right toe gangrene admitted for further evaluation and management. #right toe gangrene with cellulitis - not a surgical candidate and pt condition deteriorating. spoke w/ daughter about hospice care. daughter is on board for comfort care and will go home w/ home hospice -We will initiate comfort care and d/c all labs, medications and interventions excluding meds for pain and megace to help w/ appetite. -dysphagia diet [facility] that's what the pt was eating. #Code status - -Code status DNR/DNI - confirmed with daughter and advance directives from NH. Overall prognosis guarded, palliative care input to address overall goals of care. #Dispo waiting for SW to set up appropriate hospice care -DC tomorrow Visit type - Emergency Visit Emergency Visit: Yes ED Registration Date: 11/18/17 Care time: The patient presented to the Emergency Department on the above date and was hospitalized for further evaluation of their emergent condition. - New Patient This patient is new to me today: Yes Date on this admission: 11/27/17 - Critical Care Critical Care patient: No
[2017-11-27] MEDS: HEPARIN SOD,PORK IN 0.45% NACL 25,000 UNITS/500 ML INFUS.BAG IVPB SCH (16:35)
[2017-11-27] MEDS: traMADol HCL 50 MG TABLET PO SCH (21:44)
[2017-11-28] MEDS: ACETAMINOPHEN 325 MG TABLET (FP) PO SCH ×2 (00:13→06:19)
--- NOTE | 2017-11-28 08:31 | PN ---
Teaching Attending Note Name of Resident: Angelito Aguilar ATTENDING PHYSICIAN STATEMENT I saw and evaluated the patient. I reviewed the resident's note and discussed the case with the resident. I agree with the resident's findings and plan as documented. SUBJECTIVE: patient is comfortable with no acute distress. OBJECTIVE: Vital Signs Temperature 98.8 F 11/28/17 06:00 Pulse Rate 92 H 11/28/17 06:00 Respiratory Rate 18 11/28/17 06:00 Blood Pressure 138/67 11/28/17 06:00 O2 Sat by Pulse Oximetry (%) 100 11/27/17 21:00 CBCD WBC 6.0 K/mm3 (4.0-10.0) 11/27/17 07:00 RBC 3.13 M/mm3 (3.60-5.2) L 11/27/17 07:00 Hgb 9.5 GM/dL (10.7-15.3) L 11/27/17 07:00 Hct 27.8 % (32.4-45.2) L 11/27/17 07:00 MCV 88.8 fl (80-96) 11/27/17 07:00 MCHC 34.3 g/dl (32.0-36.0) 11/27/17 07:00 RDW 17.6 % (11.6-15.6) H 11/27/17 07:00 Plt Count 324 K/MM3 (134-434) 11/27/17 07:00 MPV 8.8 fl (7.5-11.1) 11/27/17 07:00 CMP Sodium 141 mmol/L (136-145) 11/26/17 07:15 Potassium 4.4 mmol/L (3.5-5.1) 11/26/17 07:15 Chloride 105 mmol/L (98-107) 11/26/17 07:15 Carbon Dioxide 31 mmol/L (21-32) 11/26/17 07:15 Anion Gap 5 (8-16) L 11/26/17 07:15 BUN 7 mg/dL (7-18) 11/26/17 07:15 Creatinine 0.5 mg/dL (0.55-1.02) L 11/26/17 07:15 Creat Clearance w eGFR > 60 (>60) 11/26/17 07:15 Random Glucose 97 mg/dL (74-106) 11/26/17 07:15 Calcium 8.9 mg/dL (8.5-10.1) 11/26/17 07:15 Total Bilirubin 0.3 mg/dL (0.2-1.0) 11/26/17 07:15 AST 29 U/L (15-37) 11/26/17 07:15 ALT 28 U/L (12-78) 11/26/17 07:15 Alkaline Phosphatase 110 U/L (45-117) 11/26/17 07:15 Total Protein 5.7 g/dl (6.4-8.2) L 11/26/17 07:15 Albumin 2.2 g/dl (3.4-5.0) L 11/26/17 07:15 CARDIAC ENZYMES Troponin I 0.03 ng/ml (0.00-0.05) 11/18/17 12:35 Current Medications Generic Name Dose Route Start Last Admin Trade Name Freq PRN Reason Stop Dose Admin Acetaminophen 650 mg 11/25/17 12:30 11/28/17 06:19 Tylenol - PO 650 mg Q6H GUANAKO Administration Megestrol Acetate 400 mg 11/21/17 10:00 11/27/17 21:45 Megace Oral Suspension - PO 400 mg BID GUANAKO Administration Tramadol HCl 50 mg 11/21/17 17:03 11/27/17 08:25 Ultram - PO 50 mg Q6H PRN Administration PAIN LEVEL 6-10 Tramadol HCl 50 mg 11/26/17 22:00 11/27/17 21:44 Ultram - PO 50 mg HS GUANAKO Administration Home Medications Medication Instructions Recorded Acetaminophen W/ Codeine #3 1 tablet PO Q4HWA PRN 11/18/17 [Tylenol # 3 -] Ascorbate Calcium [Vitamin C] 500 mg PO DAILY 11/18/17 Calcium Carbonate/Vitamin D3 1 each PO DAILY 11/18/17 [Oyster Shell 500-Vit D3 200 Tb] Cholecalciferol (Vitamin D3) 2,000 unit PO DAILY 11/18/17 [Vitamin D3] Clopidogrel Bisulfate [Plavix] 75 mg PO DAILY 11/18/17 Famotidine [Pepcid] 20 mg PO DAILY 11/18/17 Ferrous Sulfate 325 mg PO DAILY 11/18/17 Gabapentin [Neurontin] 300 mg PO BID 11/18/17 Insulin (Levemir) [Levemir Vial] 3 unit SQ DAILY 11/18/17 Megestrol Acetate Oral Susp 400 mg PO BID 11/18/17 [Megace Liquid -] Metoprolol Succinate 25 mg PO DAILY 11/18/17 Multivitamin [Daily Multiple 1 each PO DAILY 11/18/17 Vitamin] Simvastatin [Zocor -] 20 mg PO HS 11/18/17 Sitagliptin Phosphate [Januvia] 100 mg PO DAILY 11/18/17 Warfarin Sodium [Coumadin] 1 mg PO HS 11/18/17 levETIRAcetam [Keppra -] 500 mg PO BID 11/18/17 General NAD, bitemporal wasting, prominent clavicles MRI of lower extremity: There is diffuse soft tissue swelling dorsal and plantar aspect of the foot compatible with a deep in the cellulitis No suspicious signal intensity within the bone marrow of the metatarsal bone and phalanges. No evidence of osteomyelitis. Impression: Diffuse soft tissue swelling compatible with cellulitis. No evidence of osteomyelitis. No evidence of fracture or malalignment... 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 # Right 5th toe gangrene with overlying cellulitis- MRI neg for osteomyelitis. patient is not a surgical candidate. patient is being discharged with home hospice per daughter to continue treatment with home hospice. # Severe malnutrition-with BMI of 14.8 DNR/DNI. home hospice. patient is being discharged home.
[2017-11-28] MEDS: MEGESTROL ACETATE 400 MG/10 ML UNIT DOSE CUP PO SCH (09:26)
[2017-11-28] MEDS: traMADol HCL 50 MG TABLET PO PRN (10:29)
--- NOTE | 2017-11-28 11:36 | DS ---
Physical Exam: SUBJECTIVE: Patient seen and examined at bed side. No acute events overnight. c/o pain in foot but improved w/ pain meds. denies any fever cp, sob, n/v/d urinary sxs OBJECTIVE: Vital Signs Period Temp Pulse Resp BP Sys/Yates Pulse Ox Last 24 Hr 98.1 F-98.8 F 86-92 16-18 117-138/61-69 100 PHYSICAL EXAM GENERAL: AOx3. NAD. cachectic and thin appearing HEENT: NAD. b/l temporal wasting. PERRL, sclera anicteric, conjunctiva clear. MMM. LUNGS: CTAB. No accessory muscle use. HEART: RRR, normal S1 and S2 without murmur, audible click from valve. well healed sternal scar ABDOMEN: well-healed abdominal scar. Soft, NTND +BS, no guarding, no rebound, no masses. L groin has bandage, no swelling, tenderness, erythema or blood noted at the site. MUSCULOSKELETAL: wnl rom at shoulders, elbows, wrists. decr in b/l hips, knees and ankles. UPPER EXTREMITIES: 1+ radial pulses, cool to touch, well-perfused. No cyanosis. No clubbing. LUE swelling improved LOWER EXTREMITIES: RLE in dressing, right gangrenous 5th toe, overlying erythema on the dorsum of the right foot, gangrene appears to be advancing but slowly, unable to palpate R DP or PT pulses, faint left dp pulse. warm R >L. ttp at R toes and at foot. NEUROLOGICAL: Cranial nerves II-XII intact. Normal speech. facial symmetry. power generalized weakness 4/5 SKIN: Warm, dry, normal turgor LABS Laboratory Results - last 24 hr 11/27/17 11/27/17 11/27/17 12:38 14:30 16:11 PTT (Actin FS) 64.0 H POC Glucometer 270 62 11/27/17 20:49 PTT (Actin FS) POC Glucometer 237 HOSPITAL COURSE: Date of Admission:11/18/17 Date of Discharge: 11/28/17 86 yr old woman with PMH of DM, Afib, open heart bypass (1991), gastrectomy ( 2012), lung cancer treated with chemotherapy + pneumothorax (08/2017), and multiple falls leading to R hip/femur fracture and subdural hematoma, [facility] in from [facility] for right toe gangrene admitted for further evaluation and management. Admitted for Right 5th toe gangrene with overlying cellulits. MRI neg for osteomyelitis. pt was medically managed w/ vanc/zosyn for cellulites. Pt was seen by vascular surgery but they were unable to revascularize as pt has severe PVD. Podiatry was consulted but unfortunately she was determined to was not a surgical candidate. pt condition continued to deteriorate and we consulted palliative care for a goals of care discussion w/ family. We spoke w/ daughter about hospice care and she agreed for for comfort measures and pt to go home for home hospice w/ continuing pain meds and meds for sxs relief and megace to help w/ appetite. Pt may eventually go to [facility]. Pt prognosis is poor overall, DNR/DNI, and is ready for discharge. Minutes to complete discharge: 35 Discharge Summary Reason For Visit: CELLULITS; TOE NECROSIS; AMPUTATED TOE RIGHT FOOT Current Active Problems Amputated toe of right foot (Acute) Cellulitis (Acute) Toe necrosis (Acute) Mechanical heart valve present (Chronic) PAD (peripheral artery disease) (Chronic) Condition: Guarded - Instructions Diet, Activity, Other Instructions: You came in with worsening of your gangrene foot wound. We treated you with antibiotics and you were seen by podiatry. Podiatry determined you not to be a surgical candidate. We had a goals of care discussion with you and your daughter who is your health care proxy and it was decided to treat you with palliative/comfort care measures only. Please resume your home medications as prior to coming to the hospital. Please continue taking Tylenol and tramadol for pain control. Please continue taking megace to help you with your appetite. Please keep your foot wound/ulcer dry and change dressings daily with betadine. If you continue to experience pain despite taking these medications, please follow up with your primary care physician to refer you to a mission support specialist. If you experience severe worsening of condition please contact your primary care physician for setting up care at [facility]. Referrals: Winnie Box [Primary Care Provider] - 1 Week Disposition: HOME - Home Medications Comprehensive Discharge Medication List: Ambulatory Orders Cholecalciferol (Vitamin D3) [Vitamin D3] 2,000 unit PO DAILY 11/18/17 Clopidogrel Bisulfate [Plavix] 75 mg PO DAILY 11/18/17 Famotidine [Pepcid] 20 mg PO DAILY 11/18/17 Ferrous Sulfate 325 mg PO DAILY 11/18/17 Gabapentin [Neurontin] 300 mg PO BID 11/18/17 Insulin (Levemir) [Levemir Vial] 3 unit SQ DAILY 11/18/17 Megestrol Acetate Oral Susp [Megace Oral Suspension -] 400 mg PO BID 11/18/17 Metoprolol Succinate 25 mg PO DAILY 11/18/17 Multivitamin [Daily Multiple Vitamin] 1 each PO DAILY 11/18/17 Simvastatin [Zocor -] 20 mg PO HS 11/18/17 Sitagliptin Phosphate [Januvia] 100 mg PO DAILY 11/18/17 Warfarin Sodium [Coumadin] 1 mg PO HS 11/18/17 levETIRAcetam [Keppra -] 500 mg PO BID 11/18/17 Acetaminophen [Tylenol .Regular Strength -] 650 mg PO Q6H tablet 11/28/17 Amox-Tr/K Cl [Augmentin - 500Mg Tablet] 1 tab PO BID #14 tab 11/28/17 Ascorbic Acid [Vitamin C -] 500 mg PO DAILY tablet 11/28/17 Calcium 500Mg/Vit-D 200 Units [Os-Matt 500+D -] 1 tab PO DAILY tab 11/28/17 traMADol HCL [Ultram -] 50 mg PO Q6H PRN #12 tablet MDD 4 11/28/17 This patient is new to me today: Yes Date on this admission: 11/28/17 Emergency Visit: Yes ED Registration Date: 11/18/17 Care time: The patient presented to the Emergency Department on the above date and was hospitalized for further evaluation of their emergent condition. Critical Care patient: No - Discharge Referral Referred to [facility] No
[2017-11-28 11:59] VITALS: BP 141/71; PULSE 87; TEMP 99
--- NOTE | 2017-12-03 21:10 | OP ---
DATE OF OPERATION: 11/21/2017 PREOPERATIVE DIAGNOSIS: Right foot gangrene. POSTOPERATIVE DIAGNOSIS: Right foot gangrene. PROCEDURE: Aortogram right lower extremity angiogram. SURGEON: Bassam Kumari DO ANESTHESIA: Fractional. BLOOD LOSS: 10 mL. INDICATIONS: The patient is an 86-year-old female who has had extensive vascular workup and podiatry work done at [facility]. She came to the ER at [facility] due to gangrene of her right foot after [facility]rd [facility] and she was in severe pain. She was admitted for pain control and it was decided that we would do an angiogram to make sure there was circulation getting down to her forefoot. Patient was consented for the procedure, understanding all risks, benefits, and alternatives, and was taken to the operating room. DESCRIPTION OF PROCEDURE: Once in the operating room, she was placed on the operating table in the supine manner. The left and right groin were prepped and draped in the sterile surgical manner. We then injected 10 mL of lidocaine 1% over the left common femoral artery. We then then went ahead and used a micropuncture needle and punctured the left common femoral artery. A micropuncture wire was inserted and a 5-Lao sheath was inserted. A 0.035 floppy guidewire was inserted into the aorta followed by Omni Flush catheter. We then shot an aortogram by hand injection showing that the aorta and the iliac arteries were without any disease. We then brought our up and over to the right common femoral artery followed by the Omni Flush catheter. We then shot an angiogram of the right lower extremity showing that the common femoral artery, the profundi and the SFA were patent. Patient has popliteal artery that was patent, but the patient had severe disease in the tibial arteries. Patient only had the peroneal artery that goes down to the ankle. There is minimal blood flow to the forefoot and some collateral circulation going to her heel. At this point, there is no intervention needed. There is no stenosis that needs to be angioplastied. There is no bypassable disease. At this point, we brought our Omni Flush catheter up and over and our sheath was removed from the left groin. Pressure was held for 5 minutes. There was no more bleeding and the area was dried and Dermabond was placed. Patient tolerated the procedure with no complication. Patient transferred to the PACU in stable condition. BASSAM KUMARI DO [id number]
== END 2017-11-28 12:04 | disposition home or self-care (01) | DRG 299 ==
LOC: JER 11:31 → JERBED 14:14 → J8W 17:53
PROVIDERS: ADMIT Hospitalist; ATTEND Internal Medicine
PROC: 30233L1 Transfusion of Nonautologous Fresh Plasma into Peripheral Vein, Percutaneous Approach (ICD-10-PCS; principal; 2017-11-20)
PROC: 30233K1 Transfusion of Nonautologous Frozen Plasma into Peripheral Vein, Percutaneous Approach (ICD-10-PCS; 2017-11-20)
PROC: B41FZZZ Fluoroscopy of Right Lower Extremity Arteries (ICD-10-PCS; 2017-11-21)
PROC: 30233N1 Transfusion of Nonautologous Red Blood Cells into Peripheral Vein, Percutaneous Approach (ICD-10-PCS; 2017-11-22)
DX: E11.52 Type 2 diabetes mellitus with diabetic peripheral angiopathy with gangrene (principal); L89.153 Pressure ulcer of sacral region, stage 3; E43 Unspecified severe protein-calorie malnutrition; I96 Gangrene, not elsewhere classified; Z68.1 Body mass index [BMI] 19.9 or less, adult; R64 Cachexia; E87.2 Acidosis; E87.0 Hyperosmolality and hypernatremia; D62 Acute posthemorrhagic anemia; L03.031 Cellulitis of right toe; I45.10 Unspecified right bundle-branch block; E87.5 Hyperkalemia; I48.91 Unspecified atrial fibrillation; Z85.118 Personal history of other malignant neoplasm of bronchus and lung; Z91.81 History of falling; Z89.421 Acquired absence of other right toe(s); Z95.1 Presence of aortocoronary bypass graft; Z79.4 Long term (current) use of insulin; Z86.73 Personal history of transient ischemic attack (TIA), and cerebral infarction without residual deficits; I25.10 Atherosclerotic heart disease of native coronary artery without angina pectoris; Z95.4 Presence of other heart-valve replacement; I25.2 Old myocardial infarction; Z90.3 Acquired absence of stomach [part of]; Z66 Do not resuscitate; E87.8 Other disorders of electrolyte and fluid balance, not elsewhere classified; I99.8 Other disorder of circulatory system; R13.10 Dysphagia, unspecified
CPT/HCPCS: 36415; 36430; 71045-TC-FY; 73630-TC-RT-FY; 73718-TC; 76000-TC-FY; 80048; 80053; 81003; 82272; 82803; 82962; 83036; 83605; 83735; 84100; 84484; 85025; 85027; 85610; 85651; 85730; 86140; 86850; 86900; 86901; 86922; 87040; 87086; 93005; 93010; 93926-TC; 94010; 94760; 97116-GP; 97162-GP; 99283-25; G0480; J0131; J1644; J7030; P9017; P9038; P9058